=== PATIENT | female | born 1955 | race Caucasian/White ===

== ENCOUNTER 2016-09-06 09:33 | Outpatient (RCR) | payer BC, OTHER ==
--- OUTSIDE RECORDS SUMMARY | 2016-06-20 09:48 | XMS REPORT | CCD ---
Author Author LISETH LUCSA Organization Unknown Address [address] [facility] [address] [place], [place] [id number] Care Team Providers Care Supervisor Filtration Name Role Phone Bunny GRANDE DO Attphys Vital Signs Vital Sign Value Unit Date/Time Recent/Initial? Weight Measured 70 lbs 03/03/2014 10:07 Initial VS Height 16 in 03/03/2014 10:07 Initial VS BMI (Body Mass Index) 92.25 kg/m^2 03/03/2014 10:07 Initial VS BSA (Body Surface Area) 0.6 m^2 03/03/2014 10:07 Initial VS Allergies Allergy Code Allergy Type Reaction Status BACTRI 371938 Drug allergy Active Procedures Procedure Code Procedure Type Date INSERTION OF IMPLANTABLE VASCULAR 8607 ICD-9 CM, Volume 3 03/04/2014 FLUOROSCOPY < [id number] 03/04/2014 CX CHEST [id number] 03/04/2014 History of Immunizations Immunization Code Date Td (adult), adsorbed 09/02/1990 Problems Unknown or Not Available. Results Unknown or Not Available. Medications Medication Code Dose Units Frequency Route Modification Start Date/Time Stop Date/Time Calcium 500 + D 500MG-125IU Oral Tablet 2173159 1 EACH DAILY ORAL Vitamin D 1000IU Oral Tablet 394266 2594 INTERNATIONAL UNITS DAILY ORAL Atenolol 50MG Oral Tablet 19730101 50 MILLIGRAMS DAILY ORAL Amlodipine 5MG Oral Tablet 362713 5 MILLIGRAMS DAILY ORAL Medications Administered Unknown or Not Available. Encounters Encounter Diagnosis Diagnosis Code Start Date MALIGN NEOPL BREAST NOS 1749 03/04/2014 Social History Smoking Status Code Start Date End Date Never smoker [id number] Patient Decision Aids Unknown or Not Available. Discharge Instructions You were admitted to [facility] on 03/04/2014 with a principal diagnosis of MALIGN NEOPL BREAST NOS. You had the following procedures done: INSERT TUNNELED CV CATH You were discharged from [facility] on 03/04/2014. Should you have any questions prior to discharge, please contact a member of your healthcare team. If you have left the hospital and have any questions, please contact your primary care physician. Chief Complaint and Reason For Visit Chief Complaint Date of Onset GEN PORT A CATH Function Status Unknown or Not Available. Plan of Care Unknown or Not Available. Referral/Transition of Care Unknown or Not Available.
[2016-08-16 15:46] LABS: BASOPHILS % (AUTO) 1 % (0-10); EOSINOPHILS # (AUTO) 0.1 10^3/uL (0.0-0.3); EOSINOPHILS % (AUTO) 2 % (0-10); LYMPHOCYTES # (AUTO) 1.5 X 10^3 (1.0-4.0); LYMPHOCYTES % (AUTO) 21 % (12-44); MEAN CORPUSCULAR HEMOGLOBIN 31 PG (25-34); MEAN CORPUSCULAR HGB CONC 33 G/DL (32-36); MEAN CORPUSCULAR VOLUME 96 FL (80-99); MEAN PLATELET VOLUME 9.5 FL (7.4-10.4); MONOCYTES # (AUTO) 0.7 X 10^3 (0.0-1.0); MONOCYTES % (AUTO) 10 % (0-12); NEUTROPHILS # (AUTO) 4.6 X 10^3 (1.8-7.8); NEUTROPHILS % (AUTO) 67 % (42-75); PLATELET COUNT 246 10^3/uL (130-400); RED CELL DISTRIBUTION WIDTH 13.5 % (10.0-14.5)
[2016-08-16 16:21] LABS: ALANINE AMINOTRANSFERASE 23 U/L (0-55); ALBUMIN 3.7 G/DL (3.2-4.5); ANION GAP 8 MMOL/L (5-14); ASPARTATE AMINO TRANSFERASE 35 U/L (5-34); BILIRUBIN,TOTAL 0.5 MG/DL (0.1-1.0); BLOOD UREA NITROGEN 11 MG/DL (7-18); BUN/CREATININE RATIO 12; CALCIUM 9.5 MG/DL (8.5-10.1); CARBON DIOXIDE 26 MMOL/L (21-32); CHLORIDE 106 MMOL/L (98-107); CREATININE SERUM 0.89 MG/DL (0.60-1.30); GFR ESTIMATED > 60; GLUCOSE 79 MG/DL (70-105); POTASSIUM 4.5 MMOL/L (3.6-5.0); SODIUM 140 MMOL/L (135-145); TOTAL PROTEIN 8.1 G/DL (6.4-8.2)
[~2016-09-06] VITALS: Ht 176.5 cm; Wt 71.7 kg
[~2016-09-06 09:33] MED LIST: ADO TRASTUZUMAB EMTANSINE IV SCH; ALTEPLASE 2 MG (CATHFLO) CANCER CENTER IV ONE; FAMOTIDINE 20MG/2ML IV (CANCER CTR) IV SCH; FULVESTRANT 250 MG/5 ML SYR (CANCER CENTER) IM SCH; NS IV 500 ML (CANCER CENTER) IV SCH; NS IV SCH; ONDANSETRON 16 MG, DEXAMETHASONE 10 MG/NS 50 ML IVPB IV SCH; ONDANSETRON MDV (CANCER CENTER 16 MG, DEXAMETHASONE PF INJ (CANCER C 8 MG in NS (IVPB) ... IV SCH; [UNRECOGNIZED DRUG - OTHER] IV SCH; diphenhydrAMINE 25 MG TAB (BENADRYL) CANCER CENTER PO SCH
== END 2016-09-19 | disposition home or self-care (01) ==
LOC: PAR 09:33
PROVIDERS: ATTEND Internal Medicine Hematology & Oncology
DX: Z51.11 Encounter for antineoplastic chemotherapy (principal); C50.312 Malignant neoplasm of lower-inner quadrant of left female breast; C79.51 Secondary malignant neoplasm of bone; Z17.0 Estrogen receptor positive status [ER+]
CPT/HCPCS: 36415; 36593; 80053; 85025; 86300; 96375; 96402; 96413; 99213; 99214

== ENCOUNTER 2016-12-13 08:45 | Outpatient (RCR) | payer BC ==
[~2016-12-13 08:45] MED LIST changes: -ADO TRASTUZUMAB EMTANSINE IV SCH; -ALTEPLASE 2 MG (CATHFLO) CANCER CENTER IV ONE; +DENOSUMAB 120 MG/1.7 ML (XGEVA) SQ SCH; -FAMOTIDINE 20MG/2ML IV (CANCER CTR) IV SCH; -FULVESTRANT 250 MG/5 ML SYR (CANCER CENTER) IM SCH; -NS IV 500 ML (CANCER CENTER) IV SCH; -NS IV SCH; -ONDANSETRON 16 MG, DEXAMETHASONE 10 MG/NS 50 ML IVPB IV SCH; -ONDANSETRON MDV (CANCER CENTER 16 MG, DEXAMETHASONE PF INJ (CANCER C 8 MG in NS (IVPB) ... IV SCH; -[UNRECOGNIZED DRUG - OTHER] IV SCH; -diphenhydrAMINE 25 MG TAB (BENADRYL) CANCER CENTER PO SCH
== END 2016-12-19 | disposition home or self-care (01) ==
LOC: PAR 08:45
PROVIDERS: ATTEND Internal Medicine Hematology & Oncology
DX: C50.312 Malignant neoplasm of lower-inner quadrant of left female breast (principal); C79.51 Secondary malignant neoplasm of bone; Z17.0 Estrogen receptor positive status [ER+]; Z45.2 Encounter for adjustment and management of vascular access device
CPT/HCPCS: 36415; 96372; 96523; 99213

== ENCOUNTER 2017-01-17 10:35 | Outpatient (RCR) | payer BC | END 2017-02-14 11:15 | disposition home or self-care (01) | LOC: PAR 10:35 | PROVIDERS: ATTEND Internal Medicine Hematology & Oncology | DX: C50.312 Malignant neoplasm of lower-inner quadrant of left female breast (principal); C79.51 Secondary malignant neoplasm of bone; Z17.0 Estrogen receptor positive status [ER+]; Z78.0 Asymptomatic menopausal state; D70.2 Other drug-induced agranulocytosis; Z79.899 Other long term (current) drug therapy | CPT/HCPCS: 36415; 96372; 99213 ==

== ENCOUNTER 2017-02-27 09:24 | Outpatient (RCR) | payer BC ==
[2017-02-27] MEDS ORDERED: DOCETAXEL IV SCH (10:00)
[2017-02-27] MEDS ORDERED: PALONOSETRON 0.25 MG, DEXAMETHASONE 10 MG/NS 50 ML IVPB IV PRN ×3 (10:00)
[2017-02-27] MEDS ORDERED: FAMOTIDINE 20MG/2ML IV (CANCER CTR) IV SCH (10:00)
[2017-02-27] MEDS ORDERED: NORMAL SALINE IV SCH (10:00)
[2017-02-27] MEDS ORDERED: NS IV 1000 ML (CANCER CTR) 1,000 ML IV SCH (10:00)
[2017-02-27] MEDS ORDERED: diphenhydrAMINE 25 MG TAB (BENADRYL) CANCER CENTER PO SCH (10:00)
== END 2017-03-02 | disposition home or self-care (01) ==
LOC: ONC 09:24
PROVIDERS: ATTEND Internal Medicine Hematology & Oncology
DX: Z17.0 Estrogen receptor positive status [ER+]; Z79.899 Other long term (current) drug therapy; C79.51 Secondary malignant neoplasm of bone; Z51.11 Encounter for antineoplastic chemotherapy; Z51.0 Encounter for antineoplastic radiation therapy; Z78.0 Asymptomatic menopausal state; C50.312 Malignant neoplasm of lower-inner quadrant of left female breast
CPT/HCPCS: 77290; 77334; 96375; 96413; 99213; 99214

== ENCOUNTER 2017-03-18 11:48 | Emergency (ER) | payer BC ==
[~2017-03-18] VITALS: Ht 175.3 cm; Wt 68.0 kg
[2017-03-18 13:25] LABS: KETONES,URINE NEGATIVE (NEGATIVE); LEUKOCYTE ESTERASE ,URINE 1+ (NEGATIVE); NITRITE,URINE POSITIVE (NEGATIVE); PH,URINE 7 (5-9); PROTEIN,URINE NEGATIVE (NEGATIVE); UROBILINOGEN,URINE 8 MG/DL (NORMAL)
[2017-03-18 13:47] LABS: BILIRUBIN,URINE 3+ (NEGATIVE)
--- NOTE | 2017-03-18 14:48 | ED GU-Female ---
General Chief Complaint: -Female Stated Complaint: CAN'T PEE Nursing Triage Note: C/O inability to urinate. States her "stream" has been decreasing for the last momth. On Azo. Hx of metastatic breast cancer. Nursing Sepsis Screen: No Definite Risk Source: patient Exam Limitations: no limitations Allergies and Home Medications Allergies Coded Allergies: No Known Drug Allergies (Verified , 04/06/08) Past Pimrysd-Lgmotx-Ijfniy Hx Patient Social History Alcohol Use: Denies Use Recreational Drug Use: No Smoking Status: Never a Smoker Recent Foreign Travel: No Contact w/Someone Who Travel: No Recent Infectious Disease Expo: No Reproductive System Hx Reproductive Disorders: No Physical Exam Vital Signs Vital Sign - Last 12Hours 03/18/17 12:40 Temp 98.1 B/P (MAP) 115/65 Pulse Ox 98 Capillary Refill : Less Than 3 Seconds Progress/Results/Core Measures Results/Orders Lab Results Laboratory Tests Test 03/18/17 13:00 Range/Units Urine Color OTHER H Urine Clarity CLEAR Urine pH 7 5-9 Urine Specific [place] 1.010 L 1.016-1.022 Urine Protein NEGATIVE NEGATIVE Urine Glucose (UA) NEGATIVE NEGATIVE Urine Ketones NEGATIVE NEGATIVE Urine Nitrite POSITIVE H NEGATIVE Urine Bilirubin 3+ H NEGATIVE Urine Urobilinogen 8 H NORMAL MG/DL Urine Leukocyte Esterase 1+ H NEGATIVE Urine RBC (Auto) NEGATIVE NEGATIVE Urine RBC RARE /HPF Urine WBC NONE /HPF Urine Crystals NONE /LPF Urine Bacteria NEGATIVE /HPF Urine Casts NONE /LPF Urine Mucus NEGATIVE /LPF Urine Culture Indicated YES Vital Signs/I&O Vital Sign - Last 12Hours 03/18/17 12:40 Temp 98.1 B/P (MAP) 115/65 Pulse Ox 98 Blood Pressure Mean: 82 Departure Impression Impression: Primary Impression: Urinary retention Disposition: 01 HOME, SELF-CARE Condition: Improved Departure-Patient Inst. Decision time for Depature: 14:30 Referrals: MANUEL CARLSON DO (PCP/Family) Primary Care Physician Patient Instructions: How to Care for Your Correia Catheter, Female, Urinary Retention Add. Discharge Instructions: Leave the indwelling catheter in place until otherwise instructed by your cancer team. Return to the ER if you have further problems. Have your cancer treatment team check your urine culture results in 48 hours. All discharge instructions reviewed with patient and/or family. Voiced understanding. THIERNO LEVINE MD Mar 18, 2017 14:48
[2017-03-18 15:30] VITALS: BP 118/68
== END 2017-03-18 15:30 | disposition home or self-care (01) ==
LOC: EDUNIT# 11:48 → ER 11:50
DX: R33.9 Retention of urine, unspecified (principal)
CPT/HCPCS: 51702; 81000; 87088

== ENCOUNTER 2017-03-25 16:49 | Inpatient (IN) | payer BC ==
[~2017-03-25] VITALS: Ht 175.3 cm; Wt 62.1 kg
[2017-03-25] MEDS ORDERED: NS IV 1000 ML 2,000 ML IV PRN (17:30)
[2017-03-25 17:45] LABS: BASOPHILS % (AUTO) 1 % (0-10); EOSINOPHILS # (AUTO) 0.2 10^3/uL (0.0-0.3); EOSINOPHILS % (AUTO) 5 % (0-10); LYMPHOCYTES # (AUTO) 0.2 X 10^3 (1.0-4.0); LYMPHOCYTES % (AUTO) 4 % (12-44); MEAN CORPUSCULAR HEMOGLOBIN 35 PG (25-34); MEAN CORPUSCULAR HGB CONC 34 G/DL (32-36); MEAN CORPUSCULAR VOLUME 104 FL (80-99); MEAN PLATELET VOLUME 9.1 FL (7.4-10.4); MONOCYTES # (AUTO) 0.4 X 10^3 (0.0-1.0); MONOCYTES % (AUTO) 10 % (0-12); NEUTROPHILS # (AUTO) 3.2 X 10^3 (1.8-7.8); NEUTROPHILS % (AUTO) 81 % (42-75); PLATELET COUNT 164 10^3/uL (130-400); RED BLOOD COUNT 3.45 10^6/uL (4.35-5.85); RED CELL DISTRIBUTION WIDTH 12.9 % (10.0-14.5)
--- NOTE | 2017-03-25 17:48 | Diagnostic Imaging Report ---
INDICATION: Abdominal pain, history of breast cancer. EXAMINATION: Chest 03/25/2017. COMPARISONS: No recent. FINDINGS: Right-sided chest port is noted with tip in the SVC. Lungs demonstrate chronic change with areas of scarring and mild hyperinflation also noted. Increased density right cardiophrenic angle, likely focal fat pad. A definite infiltrate or effusion is not seen and no nodules appreciated. There are clips in left axilla, heart and pulmonary vasculature appear unremarkable. IMPRESSION: 1. Chronic change as described with findings of likely mild COPD. 2. Densities right infrahilar region likely due to focal fat pad although early infiltrate could have have a similar appearance. Correlate with symptoms. Dictated by: Dictated on workstation # [id number]
[2017-03-25 17:56] LABS: PROTHROMBIN TIME PATIENT 13.4 SEC (12.2-14.7)
--- NOTE | 2017-03-25 17:59 | ED General ---
General Chief Complaint: Abdominal/GI Problems Stated Complaint: VOMITING/UNABLE TO EAT Nursing Triage Note: Pt c/o abd pain and diarrhea and decreased urination for approx 1 week. Pt is currently receiving radiation for breast cancer - last treatment was 03/21. Pt also c/o generalized weakness. Nursing Sepsis Screen: Possible Severe Sepsis Risk Source of Information: Patient Exam Limitations: No Limitations (BEV ESCALONA MD) History of Present Illness Time Seen by Provider: 17:42 Initial Comments Here with report of one week of decreased urination and abdominal pain. She states everything that she eats or drinks comes right through her. She is worried about dehydration. She presents with fever. She has breast cancer with metastasis to the abdomen and back and has had radiation treatment and chemotherapy. Last chemotherapy was a few days ago. States that she is having decreased urine output. Unsure if its blockage or if it's just poor flow. On triage she was noted to be somewhat hypotensive with a map of 64. After signing to the room, blood pressure is 100/67. Patient states that she just feels blah. Timing/Duration: 1 Week, Getting Worse Severity: Moderate Associated Systoms: No Chest Pain, No Cough, Fever/Chills, No Headaches, Malaise, No Shortness of Air, Weakness (BEV ESCALONA MD) Allergies and Home Medications Allergies Coded Allergies: No Known Drug Allergies (Verified , 04/06/08) Constitutional: see HPI, fever, weakness, weight loss EENTM: no symptoms reported Respiratory: no symptoms reported, No short of breath, No wheezing Cardiovascular: no symptoms reported, No chest pain, No palpitations Gastrointestinal: abdominal pain, diarrhea, nausea, No vomiting Genitourinary: decreased output, pain Musculoskeletal: back pain, muscle pain Skin: no symptoms reported Psychiatric/Neurological: See HPI, Weakness Hematologic/Lymphatic: No Symptoms Reported Immunological/Allergic: no symptoms reported (BEV ESCALONA MD) All Other Systems Reviewed Negative Unless Noted: Yes (BEV ESCALONA MD) Past Dnnpyec-Grdlfn-Wmjkbt Hx Patient Social History Alcohol Use: Denies Use Recreational Drug Use: No Smoking Status: Never a Smoker Recent Foreign Travel: No Contact w/Someone Who Travel: No Recent Infectious Disease Expo: No (BEV ESCALONA MD) Surgeries History of Surgeries: Yes Surgeries: Breast, Orthopedic (BEV ESCALONA MD) Respiratory History of Respiratory Disorde: No (BEV ESCALONA MD) Cardiovascular History of Cardiac Disorders: No (BEV ESCALONA MD) Neurological History of Neurological Disord: Yes Neurological Disorders: Brain Tumor (BEV ESCALONA MD) Reproductive System Hx Reproductive Disorders: No (BEV ESCALONA MD) Genitourinary History of Genitourinary Disor: Yes (obstruction) (BEV ESCALONA MD) Gastrointestinal History of Gastrointestinal Di: No (BEV ESCALONA MD) Cancer History of Cancer: Yes Cancer: Brain, Breast (BEV ESCALONA MD) Reviewed Nursing Assessment Reviewed/Agree w Nursing PMH: Yes (BEV ESCALONA MD) Family Medical History Significant Family History: No Pertinent Family Hx (BEV ESCALONA MD) Physical Exam Vital Signs Vital Sign - Last 12Hours 03/25/17 17:14 Temp 100.0 Pulse 100 Resp 18 B/P (MAP) 85/53 Pulse Ox 99 O2 Delivery Room Air (THIERNO LEVINE MD) Vital Signs Capillary Refill : Less Than 3 Seconds (BEV ESCALONA MD) General Appearance: No Apparent Distress, Thin HEENT: PERRL/EOMI, Pharynx Normal, Other (mucous membranes) Neck: Non Tender, Supple Respiratory: Lungs Clear, Normal Breath Sounds Cardiovascular: No Murmur, Tachycardia Gastrointestinal: Non Tender, Soft Back: Normal Inspection, No CVA Tenderness, No Vertebral Tenderness Extremity: Normal Capillary Refill, Normal Range of Motion, Non Tender Neurologic/Psychiatric: Alert, Oriented x3 Skin: Normal Color, Warm/Dry (BEV ESCALONA MD) Focused Exam Evaluation Sepsis Stage: Ruled Out Reason for ruling out sepsis: Patient only met 1 SIRS criteria Lactate Level Laboratory Tests 03/25/17 17:30: Lactic Acid Level 0.81 (THIERNO LEVINE MD) Time of Focused Exam: 19:30 Respiratory: Lungs Clear, Normal Breath Sounds, No Respiratory Distress Cardiovascular: Regular Rate, Rhythm, No Edema, No Murmur, Normal Peripheral Pulses Capillary Refill: Less Than 3 Seconds Skin: normal color, warm/dry Lactic Acid Level Laboratory Tests Test 03/25/17 17:30 Lactic Acid Level 0.81 MMOL/L (0.50-2.00) (THIERNO LEVINE MD) Progress/Results/Core Measures Results/Orders Lab Results Laboratory Tests Test 03/25/17 17:30 03/25/17 18:32 Range/Units White Blood Count 4.0 L 4.3-11.0 10^3/uL Red Blood Count 3.45 L 4.35-5.85 10^6/uL Hemoglobin 12.0 11.5-16.0 G/DL Hematocrit 36 35-52 % Mean Corpuscular Volume 104 H 80-99 FL Mean Corpuscular Hemoglobin 35 H 25-34 PG Mean Corpuscular Hemoglobin Concent 34 32-36 G/DL Red Cell Distribution Width 12.9 10.0-14.5 % Platelet Count 164 130-400 10^3/uL Mean Platelet Volume 9.1 7.4-10.4 FL Neutrophils (%) (Auto) 81 H 42-75 % Lymphocytes (%) (Auto) 4 L 12-44 % Monocytes (%) (Auto) 10 0-12 % Eosinophils (%) (Auto) 5 0-10 % Basophils (%) (Auto) 1 0-10 % Neutrophils # (Auto) 3.2 1.8-7.8 X 10^3 Lymphocytes # (Auto) 0.2 L 1.0-4.0 X 10^3 Monocytes # (Auto) 0.4 0.0-1.0 X 10^3 Eosinophils # (Auto) 0.2 0.0-0.3 10^3/uL Basophils # (Auto) 0.0 0.0-0.1 10^3/uL Neutrophils % (Manual) 77 % Lymphocytes % (Manual) 2 % Monocytes % (Manual) 2 % Eosinophils % (Manual) 5 % Basophils % (Manual) 1 % Band Neutrophils 13 % Blood Morphology Comment NORMAL Prothrombin Time 13.4 12.2-14.7 SEC INR Comment 1.0 0.8-1.4 Activated Partial Thromboplast Time 28 24-35 SEC Sodium Level 133 L 135-145 MMOL/L Potassium Level 4.4 3.6-5.0 MMOL/L Chloride Level 103 98-107 MMOL/L Carbon Dioxide Level 25 21-32 MMOL/L Anion Gap 5 5-14 MMOL/L Blood Urea Nitrogen 11 7-18 MG/DL Creatinine 0.67 0.60-1.30 MG/DL Estimat Glomerular Filtration Rate > 60 BUN/Creatinine Ratio 16 Glucose Level 120 H 70-105 MG/DL Lactic Acid Level 0.81 0.50-2.00 MMOL/L Calcium Level 7.9 L 8.5-10.1 MG/DL Total Bilirubin 0.8 0.1-1.0 MG/DL Aspartate Amino Transf (AST/SGOT) 16 5-34 U/L Alanine Aminotransferase (ALT/SGPT) 11 0-55 U/L Alkaline Phosphatase 46 40-136 U/L Total Protein 6.5 6.4-8.2 GM/DL Albumin 3.1 L 3.2-4.5 GM/DL Urine Color BRNADON H Urine Clarity VERY CLOUDY H Urine pH 6 5-9 Urine Specific [place] 1.020 1.016-1.022 Urine Protein 3+ H NEGATIVE Urine Glucose (UA) NEGATIVE NEGATIVE Urine Ketones 3+ H NEGATIVE Urine Nitrite POSITIVE H NEGATIVE Urine Bilirubin 2+ H NEGATIVE Urine Urobilinogen 4 H NORMAL MG/DL Urine Leukocyte Esterase 3+ H NEGATIVE Urine RBC (Auto) 5+ H NEGATIVE Urine RBC 10-25 H /HPF Urine WBC 50-100 H /HPF Urine Crystals NONE /LPF Urine Bacteria MODERATE H /HPF Urine Casts NONE /LPF Urine Mucus NEGATIVE /LPF Urine Culture Indicated YES (THIERNO LEVINE MD) My Orders Orders - THIERNO LEVINE MD Cefepime Injection (Maxipime Injection) (03/25/17 19:30) Correia Cath Insertion (03/25/17 19:24) Normal Saline 1000ml Iv (03/25/17 19:49) (THIERNO LEVINE MD) Medications Given in ED Current Medications Medications Dose Ordered Sig/Jessica Route Start Time Stop Time Status Last Admin Dose Admin Cefepime HCl 2000 mg/Sodium Chloride 50 ml @ 100 mls/hr ONCE ONCE IV 03/25/17 19:30 03/25/17 19:59 03/25/17 19:24 100 MLS/HR Sodium Chloride 2,000 ml @ 1,000 mls/hr PRN PRN IV 03/25/17 17:30 03/25/17 19:24 1,000 MLS/HR (THIERNO LEVINE MD) Vital Signs/I&O Vital Sign - Last 12Hours 03/25/17 17:14 Temp 100.0 Pulse 100 Resp 18 B/P (MAP) 85/53 Pulse Ox 99 O2 Delivery Room Air Intake and Output 03/26/17 00:00 Intake Total 1000 ml Balance 1000 ml (THIERNO LEVINE MD) Blood Pressure Mean: 64 Progress Note : Progress Note Seen and evaluated. IV, labs, blood cultures, lactic acid, chest x-ray and UA ordered. We will initiate normal saline bolus at 30 mL/kg given the isolated hypotension due to concerns of significant dehydration at a minimum. We will change Correia catheter to ensure good flow. Monitor patient. (BEV ESCALONA MD) Progress Note : Time: 19:47 Progress Note Patient did not technically meet sepsis criteria she only had one of the SIRS criteria. Hypertension resolved with less than 1 L of IV fluid. She was started on cefepime in the emergency room. Case was discussed with Dr. Hendricks who felt cefepime is an appropriate antibiotic for the circumstances. She recommended adding Levaquin until a follow-up chest x-ray can confirm or rule out pneumonia. A repeat chest x-ray was ordered for the morning. Case was reviewed with Dr. Soler as well. He agrees with plan of care. Dr. Hendricks does not plan on rounding on the patient as she is not feeling well herself, but Dr. Dangelo can be contacted and oncologist needs to see the patient in the hospital. A second liter of IV fluids was initiated with cefepime. (THIERNO LEVINE MD) Diagnostic Imaging Diagonstic Imaging: Xray Plain Films/CT/US/NM/MRI: chest Comments [facility]. [place], [place] NAME: ESTEFANY GARCIA [facility] REC#: [id number] PT STATUS: REG ER : 1955 PHYSICIAN: BEV ESCALONA MD ADMIT DATE: 03/25/17/ER Draft Date of Exam:03/25/17 CHEST 1 VIEW, AP/PA ONLY INDICATION: Abdominal pain, history of breast cancer. EXAMINATION: Chest 03/25/2017. COMPARISONS: No recent. FINDINGS: Right-sided chest port is noted with tip in the SVC. Lungs demonstrate chronic change with areas of scarring and mild hyperinflation also noted. Increased density right cardiophrenic angle, likely focal fat pad. A definite infiltrate or effusion is not seen and no nodules appreciated. There are clips in left axilla, heart and pulmonary vasculature appear unremarkable. IMPRESSION: 1. Chronic change as described with findings of likely mild COPD. 2. Densities right infrahilar region likely due to focal fat pad although early infiltrate could have have a similar appearance. Correlate with symptoms. Dictated on workstation # [id number] Dict: 03/25/17 1740 Trans: 03/25/17 1748 KB [id number] Interpreted by: BO VILLALPANDO MD Electronically signed by: (BEV ESCALONA MD) Departure Impression Impression: Primary Impression: Hypovolemia Additional Impressions: Urinary tract infection Qualified Codes: N39.0 - Urinary tract infection, site not specified Metastatic breast cancer Urinary obstruction Disposition: ADMITTED INPATIENT Condition: Improved Admissions Decision to Admit Reason: Admit from ER (General) Decision to Admit/Date: Mar 25, 2017 Time/Decision to Admit Time: 18:00 (THIERNO LEVINE MD) Departure-Patient Inst. Referrals: MANUEL CARLSON DO (PCP/Family) Primary Care Physician BEV ESCALONA MD Mar 25, 2017 17:59 THIERNO LEVINE MD Mar 25, 2017 19:40
[2017-03-25 18:03] LABS: ALANINE AMINOTRANSFERASE 11 U/L (0-55); ALBUMIN 3.1 GM/DL (3.2-4.5); ANION GAP 5 MMOL/L (5-14); ASPARTATE AMINO TRANSFERASE 16 U/L (5-34); BILIRUBIN,TOTAL 0.8 MG/DL (0.1-1.0); BLOOD UREA NITROGEN 11 MG/DL (7-18); BUN/CREATININE RATIO 16; CALCIUM 7.9 MG/DL (8.5-10.1); CARBON DIOXIDE 25 MMOL/L (21-32); CHLORIDE 103 MMOL/L (98-107); CREATININE SERUM 0.67 MG/DL (0.60-1.30); GFR ESTIMATED > 60; GLUCOSE 120 MG/DL (70-105); POTASSIUM 4.4 MMOL/L (3.6-5.0); SODIUM 133 MMOL/L (135-145); TOTAL PROTEIN 6.5 GM/DL (6.4-8.2)
[2017-03-25 18:05] LABS: BAND NEUTROPHILS 13 %; EOSINOPHILS % (MANUAL) 5 %; LYMPHOCYTES % (MANUAL) 2 %; NEUTROPHILS % (MANUAL) 77 %
[2017-03-25 18:06] LABS: BASOPHILS % (MANUAL) 1 %
[2017-03-25 18:44] LABS: KETONES,URINE 3+ (NEGATIVE); LEUKOCYTE ESTERASE ,URINE 3+ (NEGATIVE); NITRITE,URINE POSITIVE (NEGATIVE); PH,URINE 6 (5-9); PROTEIN,URINE 3+ (NEGATIVE); UROBILINOGEN,URINE 4 MG/DL (NORMAL)
[2017-03-25 18:57] LABS: WBC,URINE 50-100 /HPF
[2017-03-25] MEDS ORDERED: CEFEPIME INJECTION 2,000 MG in NS (IVPB) 50 ML IV ONE (19:30)
[2017-03-25] MEDS ORDERED: NS IV 1000 ML 1,000 ML IV ONE (19:49)
[2017-03-25 20:15] VITALS: BP 111/64
[2017-03-25 22:00] VITALS: BP 87/51
[2017-03-25] MEDS ORDERED: LEVOFLOXACIN 750 MG/150 ML IV 150 ML IV ONE (22:27)
[2017-03-25] MEDS: NS IV 1000 ML 1,000 ML IV SCH (22:43)
[2017-03-25] MEDS ORDERED: HYDROcodone/APAP 5 MG/325 MG (LORTAB) TAB PO PRN (22:45)
[2017-03-25] MEDS ORDERED: ONDANSETRON 4 MG/2 ML (SDV) Z0FRAN IV PRN (22:45)
[2017-03-25] MEDS ORDERED: fentaNYL INJECTION 100 MCG/2 ML AMP IV PRN (22:45)
[2017-03-25 22:59] VITALS: BP 96/64
[2017-03-26] VITALS: BP 100/62
[2017-03-26 04:37] VITALS: BP 94/60
[2017-03-26] MEDS: NS IV 1000 ML 1,000 ML IV SCH ×2 (05:28→12:26)
[2017-03-26 06:24] LABS: BASOPHILS % (AUTO) 0 % (0-10); EOSINOPHILS # (AUTO) 0.1 10^3/uL (0.0-0.3); EOSINOPHILS % (AUTO) 4 % (0-10); LYMPHOCYTES # (AUTO) 0.1 X 10^3 (1.0-4.0); LYMPHOCYTES % (AUTO) 3 % (12-44); MEAN CORPUSCULAR HEMOGLOBIN 34 PG (25-34); MEAN CORPUSCULAR HGB CONC 32 G/DL (32-36); MEAN CORPUSCULAR VOLUME 105 FL (80-99); MEAN PLATELET VOLUME 9.1 FL (7.4-10.4); MONOCYTES # (AUTO) 0.4 X 10^3 (0.0-1.0); MONOCYTES % (AUTO) 14 % (0-12); NEUTROPHILS # (AUTO) 2.5 X 10^3 (1.8-7.8); NEUTROPHILS % (AUTO) 79 % (42-75); PLATELET COUNT 132 10^3/uL (130-400); RED BLOOD COUNT 2.55 10^6/uL (4.35-5.85); RED CELL DISTRIBUTION WIDTH 12.8 % (10.0-14.5); WHITE BLOOD COUNT 3.2 10^3/uL (4.3-11.0)
[2017-03-26 06:25] LABS: ALANINE AMINOTRANSFERASE 9 U/L (0-55); ALBUMIN 2.4 GM/DL (3.2-4.5); ANION GAP 7 MMOL/L (5-14); ASPARTATE AMINO TRANSFERASE 10 U/L (5-34); BILIRUBIN,TOTAL 0.6 MG/DL (0.1-1.0); BLOOD UREA NITROGEN 7 MG/DL (7-18); BUN/CREATININE RATIO 13; CALCIUM 6.6 MG/DL (8.5-10.1); CARBON DIOXIDE 19 MMOL/L (21-32); CHLORIDE 109 MMOL/L (98-107); CREATININE SERUM 0.55 MG/DL (0.60-1.30); GFR ESTIMATED > 60; GLUCOSE 84 MG/DL (70-105); POTASSIUM 3.8 MMOL/L (3.6-5.0); SODIUM 135 MMOL/L (135-145); TOTAL PROTEIN 4.8 GM/DL (6.4-8.2)
[2017-03-26] MEDS ORDERED: CATHETER FLUSH 10 ML SYR IV PRN (07:00)
[2017-03-26] MEDS ORDERED: INFLUENZA TRIvalent 2017-2018 0.5 ML/45 MCG SYR IM ONE (07:00)
[2017-03-26 07:31] LABS: BILIRUBIN,URINE 2+ (NEGATIVE)
[2017-03-26] MEDS ORDERED: ONDA8TAB12 PO (08:05)
[2017-03-26] MEDS ORDERED: AMLO10TA2 PO (08:05)
[2017-03-26] MEDS ORDERED: GUAN2TAB PO (08:05)
[2017-03-26] MEDS ORDERED: LETR2.5T5 PO (08:05)
[2017-03-26] MEDS ORDERED: HYDR-3820 PO (08:05)
[2017-03-26 08:08] VITALS: BP 96/60
[2017-03-26] MEDS ORDERED: DEXA4TAB PO (08:08)
[2017-03-26] MEDS ORDERED: OMEP20TA33 PO (08:09)
[2017-03-26] MEDS: PHENAZOPYRIDINE 100 MG (PYRIDIUM) TABLET PO SCH ×2 (08:46→21:48)
--- NOTE | 2017-03-26 08:53 | Diagnostic Imaging Report ---
CLINICAL INDICATION: Patient unable to drink or eat without it coming right back out. Patient has a history of metastatic cancer. Patient has no chest complaints. EXAM: Chest x-ray, PA and lateral views. COMPARISON: Chest x-ray dated 03/25/2017. FINDINGS: Again seen is a Port-A-Cath overlying the right chest with the tip in the upper to mid superior vena cava region. There are surgical clips overlying the left axillary region again noted. Left mastectomy is seen. LUNGS/PLEURA: The lungs are clear. There is no pneumothorax. There is no pleural effusion. MEDIASTINUM: Unremarkable. PULMONARY VASCULATURE: Unremarkable. HEART: Unremarkable. BONES/EXTRATHORACIC SOFT TISSUE: There is a mild compression deformity of a lower thoracic vertebra. There are small degenerative spurs involving the visualized thoracolumbar Spine. IMPRESSION: 1. There is a mild compression deformity of a lower thoracic vertebra of unknown age. This cannot be compared on the prior chest x-ray due to it having no lateral view. If there is concern for acute back pain, then an MRI of the thoracic spine with and without contrast would better evaluate. 2. Otherwise, there is no interval radiographic evidence of an acute cardiopulmonary process. Dictated by: Dictated on workstation # [id number]
--- NOTE | 2017-03-26 11:38 | History & Physical-Hospitalist ---
HPI History of Present Illness: HPI/Chief Complaint Pt is a 61yoCF with a PMH of metastatic breast cancer, HTN, and recent urinary retention necessitating ashby catheter who presented to the ER yesterday with CC of feeling poorly. She states since she started chemo and radiation she has had persistent diarrhea and reflux. She has loose stools multiple times a day and recently her reflux has gotten so bad that she is unable to keep anything down so she presented to the ER. Of note she developed urinary retention from her radiation last week and necessitated a ashby. UA was consistent with a UTI. She reports having persistent nausea and diarrhea unresponsive to Imodium and Zofran at this time. Her reflux has been resistant to Prilosec as well. She was admitted for hypovolemia and UTI. Source: patient Date Seen 03/26/17 Time Seen by Provider: 11:15 Attending Physician Jeffrey Soler MD PCP Dank Haskins DO Referring Physician Date of Admission Mar 25, 2017 at 7:46 pm Home Medications & Allergies Home Medications Reviewed patient Home Medication Reconciliation Form Allergies Allergies Coded Allergies No Known Drug Allergies (Yzjzhbbe62/4/08) Past Tcgpexo-Szppvm-Exskrc Hx Patient Social History Marrital Status: (Efe Hope- [phone]) Alcohol Use: Occasionally Uses Alcohol Beverage of Choice: Beer Recreational Drug Use: No Smoking Status: Former Smoker Former Smoker, Quit: Jun 03, 2007 Type Used: Cigarettes Physical Abuse Screen: No Sexual Abuse: No Recent Foreign Travel: No Contact w/other who traveled: No Recent Hopitalizations: No Recent Infectious Disease Expo: No Immunizations Up To Date Pediatric: No Seasonal Allergies Seasonal Allergies: No Surgeries Yes Abdominal, Appendectomy, Breast, Orthopedic (knee and carpal tunnel) Respiratory No Cardiovascular No Reproductive System Hx Reproductive Disorders: No Sexually Transmitted Disease: No Genitourinary Yes (urinary retention) Gastrointestinal Yes Gastroesophageal Reflux Musculoskeletal No Endocrine History of Endocrine Disorders: No HEENT History of HEENT Disorders: No Cancer Yes Brain, Breast Did You Recieve Any Treatments: Yes Type of Treatment: Chemotherapy, Radiation, Surgical Intervention Psychosocial History of Psychiatric Problem: No Integumentary History of Skin or Integumenta: No Blood Transfusions History of Blood Disorders: No Adverse Reaction to a Blood Tr: No Reviewed Nursing Assessment Reviewed/Agree w Nursing PMH: Yes Family Medical History Significant Family History: No Pertinent Family Hx Family Hx: Patient reports no known family medical history. Review of Systems Constitutional: No chills, No fever, weakness EENTM: No blurred vision, No double vision, No nose congestion, No throat pain Respiratory: No cough, No dyspnea on exertion, No short of breath Cardiovascular: No chest pain, No edema, No palpitations Gastrointestinal: abdominal pain, No constipation, diarrhea, heartburn, nausea Genitourinary: see HPI, decreased output Musculoskeletal: No joint pain, No muscle pain Skin: No lesions, No rash Psychiatric/Neurological: Denies Headache, Denies Numbness, Denies Tingling Physical Exam Physical Exam Vital Signs Vital Sign - Last 12Hours 03/25/17 17:14 Temp 100.0 Pulse 100 Resp 18 B/P (MAP) 85/53 Pulse Ox 99 O2 Delivery Room Air Capillary Refill : Less Than 3 Seconds General Appearance: No Apparent Distress, Thin HEENT: PERRL/EOMI, Moist Mucous Membranes Neck: Non Tender, Supple Respiratory: Lungs Clear, No Respiratory Distress Cardiovascular: Regular Rate, Rhythm, No Murmur Gastrointestinal: Normal Bowel Sounds, Soft, No Distended, No Guarding, Tenderness (epigastric) Extremity: Normal Capillary Refill, No Calf Tenderness, No Pedal Edema Neurologic/Psychiatric: Alert, Oriented x3, Normal Mood/Affect Skin: Normal Color, Warm/Dry Results Results/Procedures Lab Laboratory Tests 03/25/17 17:30 03/26/17 05:55 Radiology CHEST 1 VIEW, AP/PA ONLY INDICATION: Abdominal pain, history of breast cancer. EXAMINATION: Chest 03/25/2017. COMPARISONS: No recent. FINDINGS: Right-sided chest port is noted with tip in the SVC. Lungs demonstrate chronic change with areas of scarring and mild hyperinflation also noted. Increased density right cardiophrenic angle, likely focal fat pad. A definite infiltrate or effusion is not seen and no nodules appreciated. There are clips in left axilla, heart and pulmonary vasculature appear unremarkable. IMPRESSION: 1. Chronic change as described with findings of likely mild COPD. 2. Densities right infrahilar region likely due to focal fat pad although early infiltrate could have have a similar appearance. Correlate with symptoms. Assessment/Plan Admission Diagnosis UTI Diagnosis/Problems Diagnosis/Problems (1) Urinary tract infection Status: Acute Assessment & Plan: E coli in Urine Continue cefepime for now, Day 2 abx DC levaquin and no signs/symptoms of PNA Blood cultures pending Qualifiers: Qualified Codes: N39.0 - Urinary tract infection, site not specified (2) Acid reflux Status: Chronic Assessment & Plan: no record of scope so unsure if esophagitis vs gastritis Will switch to Protonix and add Pepcid as well Also carafate and GI cockail available Source of poor PO intake so will treat aggressively Qualifiers: Qualified Codes: K21.9 - Gastro-esophageal reflux disease without esophagitis (3) Urinary obstruction Status: Acute Assessment & Plan: Ashby x1 week Changed in ER Continue Cefepime (4) Metastatic breast cancer Status: Acute Assessment & Plan: On chemo and radiation Oncology consulted, appreciate recs (5) Macrocytic anemia Assessment & Plan: Likely due to chemo Large drop form yesterday- likely due to dilution Trend (6) Essential (primary) hypertension Status: Chronic Assessment & Plan: Takes Norvasc at home Hold for hypotension (7) Prophylactic measure Assessment & Plan: Hold Lovenox for anemia (until stabilizes- likely tomorrow) Diet as tolerated 1/2 NS 125ml/hr Clinical Quality Measures DVT/VTE Risk/Contraindication: Risk Factor Score Per Nursin RFS Level Per Nursing on Admit: 4+=Very High GABBIE BERGERON MD Mar 26, 2017 11:38 am
[2017-03-26] MEDS ORDERED: NS IV 1000 ML 2,000 ML ONE (11:44)
[2017-03-26] MEDS ORDERED: HEParin 1000 UNIT/ML (10ML VIAL) FOR BOLUS ONE (11:44)
[2017-03-26] MEDS ORDERED: fentaNYL INJECTION 100 MCG/2 ML AMP ONE (11:47)
[2017-03-26] MEDS ORDERED: MIDAZOLAM 5 MG/5 ML (VERSED) VIAL ONE (11:47)
[2017-03-26] MEDS: CEFEPIME 2 GM/NS 50 ML IVPB IV SCH ×4 (12:26→23:32)
[2017-03-26] MEDS: PANTOPRAZOLE 40 MG (PROTONIX) TAB PO SCH (12:26)
[2017-03-26 12:44] VITALS: BP 100/61
[2017-03-26] MEDS: 1/2 NS IV SOLUTION 1,000 ML IV SCH ×2 (15:30→22:06)
[2017-03-26] MEDS: SUCRALFATE 1 GM (CARAFATE) TAB PO SCH ×2 (15:32→21:48)
[2017-03-26] MEDS ORDERED: LIDOCAINE 2% VISCOUS 15 ML UDC PO SCH (16:00)
[2017-03-26 16:30] VITALS: BP 107/63
[2017-03-26] MEDS ORDERED: LIDOCAINE 2% VISCOUS 15 ML UDC PO PRN (21:00)
[2017-03-26] MEDS: FAMOTIDINE 20 MG (PEPCID) TABLET PO SCH (21:48)
[2017-03-26] MEDS ORDERED: LEVOFLOXACIN 750 MG/150 ML IV 150 ML IV SCH (22:45)
[2017-03-27 00:32] VITALS: BP 129/59
[2017-03-27] MEDS: 1/2 NS IV SOLUTION 1,000 ML IV SCH ×2 (02:37→11:20)
[2017-03-27 04:13] VITALS: BP 112/59
[2017-03-27] MEDS: PANTOPRAZOLE 40 MG (PROTONIX) TAB PO SCH (05:57)
[2017-03-27] MEDS: SUCRALFATE 1 GM (CARAFATE) TAB PO SCH (05:57)
[2017-03-27 06:24] LABS: BASOPHILS % (AUTO) 0 % (0-10); EOSINOPHILS % (AUTO) 0 % (0-10); LYMPHOCYTES # (AUTO) 0.1 X 10^3 (1.0-4.0); LYMPHOCYTES % (AUTO) 3 % (12-44); MEAN CORPUSCULAR HEMOGLOBIN 35 PG (25-34); MEAN CORPUSCULAR HGB CONC 34 G/DL (32-36); MEAN CORPUSCULAR VOLUME 103 FL (80-99); MEAN PLATELET VOLUME 8.7 FL (7.4-10.4); MONOCYTES # (AUTO) 0.3 X 10^3 (0.0-1.0); MONOCYTES % (AUTO) 8 % (0-12); NEUTROPHILS # (AUTO) 3.6 X 10^3 (1.8-7.8); NEUTROPHILS % (AUTO) 89 % (42-75); PLATELET COUNT 149 10^3/uL (130-400); RED BLOOD COUNT 2.63 10^6/uL (4.35-5.85); RED CELL DISTRIBUTION WIDTH 12.7 % (10.0-14.5)
[2017-03-27 06:34] LABS: ANION GAP 6 MMOL/L (5-14); BLOOD UREA NITROGEN 7 MG/DL (7-18); BUN/CREATININE RATIO 13; CALCIUM 6.9 MG/DL (8.5-10.1); CARBON DIOXIDE 20 MMOL/L (21-32); CHLORIDE 110 MMOL/L (98-107); CREATININE SERUM 0.55 MG/DL (0.60-1.30); GFR ESTIMATED > 60; GLUCOSE 121 MG/DL (70-105); SODIUM 136 MMOL/L (135-145)
--- NOTE | 2017-03-27 07:27 | CONSULTATION REPORT ---
DATE OF SERVICE: 03/26/2017 The patient is admitted to room 413. REFERRING PHYSICIAN: Gisela Leal M.D. PRIMARY PHYSICIAN: Dank Haskins D.O. IMPRESSION: 1. A 61-year-old female with metastatic breast cancer to the bone and liver. 2. Status post palliative radiation therapy to the lower back and left inguinal area with concurrent weekly Taxotere. 3. Admitted with dehydration, diarrhea, nausea secondary to significant acid peptic symptoms. 4. Escherichia coli urinary tract infection. RECOMMENDATIONS: 1. Agree with IV hydration and IV antibiotics for the urinary tract infection as you are doing. 2. We will obtain stools for C. difficile toxin because of the diarrhea. 3. Continue low-residue diet because of colitis due to radiation and advance as tolerated. 4. Hold further chemotherapy until her symptoms have resolved. 5. I will follow the patient with you in Dr. Hendricks's absence. 6. Continue to monitor electrolytes and renal function serially. BRIEF HISTORY: The patient is a 61-year-old female with metastatic breast cancer to the liver and bone, who was on outpatient palliative chemotherapy with weekly Taxotere and palliative radiation therapy to the low back and left inguinal area for symptomatic metastatic disease. She completed the radiation therapy last week, but was continuing to get worse with significant acid peptic symptoms, nausea and diarrhea. She also had difficulty passing urine and had a Correia catheter placed recently. She continued to get weaker and weaker. She came to the emergency room and was found to be dehydrated with evidence of urinary tract infection. Hence, she was admitted for further management. A medical oncology consultation was obtained for concurrent management. The patient sees Dr. Hendricks, for her oncology care but she is out of the office today and hence I am doing the consult for her. PAST MEDICAL HISTORY: Significant for early stage left breast cancer diagnosed in 2000, status post modified radical mastectomy with sentinel lymph node biopsy as well as a TRAM flap reconstruction at the [facility]. The patient was evaluated by medical oncology and received no adjuvant therapy. She developed metastatic disease to the left chest wall and bone diagnosed in 2013. At this time, she was evaluated by Dr. Desir in [place] and underwent chemotherapy with the TCHP regimen x7 cycles with an excellent response. Following this, she was put on maintenance treatment with Herceptin plus Perjeta plus Arimidex for close to a year. The patient developed recurrence in the left chest wall and reconstructed breast tissue with significant pain. She went to [facility] and had resection of the tumor along with a flap. Following this, she was started on treatment with Ibrance plus letrozole, but had evidence of progressive disease soon thereafter and developed liver metastasis as well as the worsening bone metastasis. At this point, she was recommended to undergo palliative radiation therapy to control the pain and along with this weekly chemotherapy with Taxotere was started. PAST MEDICAL HISTORY: She has significant history of gastroesophageal reflux even in the past and has been on treatment. PREVIOUS SURGERIES: Include an appendectomy, left mastectomy with TRAM flap reconstruction, abdominal wall hernia requiring surgical correction with mesh placement, knee surgery and carpal tunnel release. She recently had resection of recurrent tumor in the left breast including the TRAM flap. SOCIAL HISTORY: The patient is and lives near [place], [place]. She has a son who is in his early 20s. She was working until recently but has not been able to work because of the side effects from the treatment. She gives previous history of tobacco use, but quit in early 2007. Uses alcohol socially and denied any other recreational drug use. FAMILY HISTORY: Noncontributory with no major malignancies in the family that she knows of. PHYSICAL EXAMINATION: GENERAL: Today, showed an elderly female, well developed and nourished, awake and oriented and in mild discomfort because of the lower abdominal pain and diarrhea. VITAL SIGNS: Temperature was 98.6, pulse rate 73, respirations 20, blood pressure 100/61, oxygen saturation of 97% on room air. HEENT: Normocephalic, extraocular muscles intact, conjunctivae slightly pale, oral mucosa moist. NECK: Supple, with no JVD. No cervical, supraclavicular, or axillary lymphadenopathy palpable. CHEST: Examination of the chest showed left mastectomy. No chest wall lesions noted. LUNGS: With slightly diminished breath sounds bilaterally without wheezes or rales. CARDIOVASCULAR: Regular in rate and rhythm. No murmurs or gallops heard. ABDOMEN: Soft, nontender with no definite hepatosplenomegaly palpable. The patient has discomfort in the lower quadrants and deep palpation was not done. EXTREMITIES: Showed no edema. NEUROLOGICAL: Showed no focal motor deficits. LABORATORY DATA: CBC done today showed WBC 3.2, hemoglobin 8.6, MCV 105, RDW 12.8, platelet count 132,000 with neutrophil count of 2.5 and lymphocyte count of 0.1. Chemistry panel showed relatively normal electrolytes. BUN was 7 and creatinine 0.55 with GFR more than 60 mL per minute. Measured calcium was 6.6 with albumin level of 2.4 for a corrected calcium level of 7.8. Liver function studies were normal except for albumin level of 2.4. Urinalysis was very cloudy with 3+ protein, 3+ ketones, nitrite positive, leukocyte esterase positive with 50 to 100 WBCs and moderate bacteria. Culture showed more than 100,000 colonies of E. coli that is sensitive to all the antibiotics. Chest x-ray done today showed mild compression deformity of her lower thoracic vertebra of unknown age. No other radiographic evidence of an acute cardiopulmonary process. Right-sided port was present. Left mastectomy changes noted. Thank you for allowing me to participate in this patient's care. I will follow the patient with you. Job ID: [id number] DocumentID: [id number] Dictated Date: 03/26/2017 17:20:38 Ticketing Clerk Date: 03/27/2017 03:31:34 Dictated By: VIMAL TALBERT MD
[2017-03-27 08:00] VITALS: BP 124/62
[2017-03-27] MEDS: FAMOTIDINE 20 MG (PEPCID) TABLET PO SCH ×2 (09:17→20:51)
[2017-03-27] MEDS: PHENAZOPYRIDINE 100 MG (PYRIDIUM) TABLET PO SCH ×2 (09:17→20:51)
--- NOTE | 2017-03-27 11:01 | Progress Note-Hospitalist ---
Subjective HPI/CC On Admission Date Seen by Provider: Mar 27, 2017 Time Seen by Provider: 10:45 Pt is a 61yoCF with a PMH of metastatic breast cancer, HTN, and recent urinary retention necessitating ashby catheter who presented to the ER yesterday with CC of feeling poorly. She states since she started chemo and radiation she has had persistent diarrhea and reflux. She has loose stools multiple times a day and recently her reflux has gotten so bad that she is unable to keep anything down so she presented to the ER. Of note she developed urinary retention from her radiation last week and necessitated a ashby. UA was consistent with a UTI. She reports having persistent nausea and diarrhea unresponsive to Imodium and Zofran at this time. Her reflux has been resistant to Prilosec as well. She was admitted for hypovolemia and UTI. Subjective/Events-last exam She reports feeling better today. Feel Carafate helped with reflux. Ready to try more oral intake today. Still having diarrhea. Objective Exam Vital Signs Vital Sign - Last 12Hours 03/25/17 17:14 Temp 100.0 Pulse 100 Resp 18 B/P (MAP) 85/53 Pulse Ox 99 O2 Delivery Room Air Capillary Refill : Less Than 3 Seconds General Appearance: No Apparent Distress, WD/WN Respiratory: Lungs Clear, No Respiratory Distress Cardiovascular: Regular Rate, Rhythm, No Murmur Gastrointestinal: Normal Bowel Sounds, Non Tender, Soft Neurologic/Psychiatric: Alert, Oriented x3, Normal Mood/Affect Results/Procedures Lab Laboratory Tests 03/27/17 06:00 Assessment/Plan Assessment and Plan Assess & Plan/Chief Complaint UTI with dehydration Diagnosis/Problems Diagnosis/Problems (1) Urinary tract infection Status: Acute Assessment & Plan: E coli in Urine Transition to Keflex per sensitivites DC levaquin and no signs/symptoms of PNA Blood cultures NGTD Qualifiers: Qualified Codes: N39.0 - Urinary tract infection, site not specified (2) Acid reflux Status: Chronic Assessment & Plan: no record of scope so unsure if esophagitis vs gastritis Will switch to Protonix and add Pepcid as well Change carafae to prn Source of poor PO intake so will treat aggressively Qualifiers: Qualified Codes: K21.9 - Gastro-esophageal reflux disease without esophagitis (3) Diarrhea Status: Acute Assessment & Plan: c diff pending likely iatrogenic from radiation or chemo Taking home probiotic (4) Urinary obstruction Status: Acute Assessment & Plan: Ashby x1 week Changed in ER Continue Keflex Will have nursing do education on catheter care (5) Metastatic breast cancer Status: Acute Assessment & Plan: On chemo and radiation Oncology consulted, appreciate recs (6) Macrocytic anemia Assessment & Plan: Stable, trend (7) Essential (primary) hypertension Status: Chronic Assessment & Plan: Takes Norvasc at home Hold for hypotension (8) Prophylactic measure Assessment & Plan: Lovenox ppx Diet as tolerated 1/2 NS 50cc/hr GABBIE BERGERON MD Mar 27, 2017 11:01 am
--- NOTE | 2017-03-27 15:05 | Progress Note-Standard ---
Standard Progress Note Progress Notes/Assess & Plan Date Seen by Provider: Mar 27, 2017 Time Seen by Provider: 15:00 Progress/Assessment & Plan 61-year-old female patient of Dr. Hendricks with metastatic breast cancer to the liver and bone. Admitted with nausea, vomiting, diarrhea and dehydration. Patient completed combined chemoradiation to the low back and inguinal region for symptomatic disease. Found to have Escherichia coli UTI and antibiotic changed to Keflex. Stools for C. difficile equivocal and molecular testing pending. Patient is feeling better clinically and denied any nausea or vomiting. She is eating low residue diet and the diarrhea is also improving. Fecal occult blood test positive most likely related to colitis from the radiation. Continue IV fluids, increase oral intake and activity level. May consider starting Flagyl because of equivocal C. difficile testing. We will follow patient with you. VIMAL TALBERT Mar 27, 2017 15:04
[2017-03-27 15:59] VITALS: BP 109/55
[2017-03-27] MEDS: CEPHALEXIN 250 MG (KEFLEX) CAP PO SCH (20:51)
[2017-03-28] VITALS: BP 105/58
[2017-03-28] MEDS: ANTACID SUSP 30 ML UDC (MYLANTA) PO PRN ×2 (05:06→20:09)
[2017-03-28] MEDS: PANTOPRAZOLE 40 MG (PROTONIX) TAB PO SCH (06:47)
[2017-03-28 08:13] VITALS: BP 113/56
[2017-03-28] MEDS: FAMOTIDINE 20 MG (PEPCID) TABLET PO SCH ×2 (08:21→20:10)
[2017-03-28] MEDS: PHENAZOPYRIDINE 100 MG (PYRIDIUM) TABLET PO SCH ×2 (08:21→20:10)
[2017-03-28] MEDS: CEPHALEXIN 250 MG (KEFLEX) CAP PO SCH ×2 (08:21→20:10)
[2017-03-28] MEDS: metroNIDAZOLE 500 MG (FLAGYL) TAB PO SCH ×3 (09:29→20:10)
[2017-03-28] MEDS: SUCRALFATE 1 GM (CARAFATE) TAB PO PRN (09:29)
[2017-03-28] MEDS: DIPHENOXYLATE/ATROPINE 2.5MG/0.025MG (LOMOTIL) TAB PO PRN (11:02)
[2017-03-28] MEDS: 1/2 NS IV SOLUTION 1,000 ML IV SCH (13:15)
--- NOTE | 2017-03-28 13:52 | Progress Note-Hospitalist ---
Subjective HPI/CC On Admission Date Seen by Provider: Mar 28, 2017 Time Seen by Provider: 09:00 Pt is a 61yoCF with a PMH of metastatic breast cancer, HTN, and recent urinary retention necessitating ashby catheter who presented to the ER yesterday with CC of feeling poorly. She states since she started chemo and radiation she has had persistent diarrhea and reflux. She has loose stools multiple times a day and recently her reflux has gotten so bad that she is unable to keep anything down so she presented to the ER. Of note she developed urinary retention from her radiation last week and necessitated a ashby. UA was consistent with a UTI. She reports having persistent nausea and diarrhea unresponsive to Imodium and Zofran at this time. Her reflux has been resistant to Prilosec as well. She was admitted for hypovolemia and UTI. Subjective/Events-last exam Pt reports feeling very poorly this morning. She feels weak and has no energy. She was tearful during our exam. Still having profuse diarrhea. Objective Exam Vital Signs Vital Sign - Last 12Hours 03/25/17 17:14 Temp 100.0 Pulse 100 Resp 18 B/P (MAP) 85/53 Pulse Ox 99 O2 Delivery Room Air Capillary Refill : Less Than 3 Seconds General Appearance: No Apparent Distress, Other (tearful) Respiratory: Lungs Clear, No Respiratory Distress Cardiovascular: Regular Rate, Rhythm, No Murmur Gastrointestinal: Normal Bowel Sounds, Non Tender, Soft Extremity: Non Tender, No Calf Tenderness Neurologic/Psychiatric: Alert, Oriented x3 Assessment/Plan Assessment and Plan Assess & Plan/Chief Complaint C diff colitis Diagnosis/Problems Diagnosis/Problems (1) C. difficile colitis Status: Acute Assessment & Plan: C diff positive Flagyl started On probiotic Continue IVF as still net negative I/Os (2) Urinary tract infection Status: Acute Assessment & Plan: E coli in Urine Keflex Blood cultures NGTD Qualifiers: Qualified Codes: N39.0 - Urinary tract infection, site not specified (3) Acid reflux Status: Chronic Assessment & Plan: no record of scope so unsure if esophagitis vs gastritis Cont Protonix and Pepcid as well Change carafae to prn as most helpful for her Source of poor PO intake so will treat aggressively Qualifiers: Qualified Codes: K21.9 - Gastro-esophageal reflux disease without esophagitis (4) Urinary obstruction Status: Acute Assessment & Plan: Ashby x1 week Changed in ER Continue Keflex Will have nursing do education on catheter care (5) Metastatic breast cancer Status: Acute Assessment & Plan: On chemo and radiation Oncology consulted, appreciate recs (6) Macrocytic anemia Assessment & Plan: Stable, trend (7) Essential (primary) hypertension Status: Chronic Assessment & Plan: Takes Norvasc at home Hold for hypotension (8) Prophylactic measure Assessment & Plan: Lovenox ppx Diet as tolerated 1/2 NS 50cc/hr GABBIE BERGERON MD Mar 28, 2017 13:52
[2017-03-28] MEDS ORDERED: ENOXAPARIN 40 MG/0.4 ML (LOVENOX) SYR SC SCH (14:00)
[2017-03-28 16:41] VITALS: BP 110/55
--- NOTE | 2017-03-28 17:06 | Physician Progress Note ---
Progress Note Assessment/Plan Time Seen by Provider: 16:00 Events since last exam Pt is feeling better this afternoon. Able to keep the food down so far and diarrhea subsided this afternoon. I told her that her tumor marker CA 27.29 has come down from 82 to 52 after the chemoradiation treatment. She was very happy about it. Wants to go home tomorrow. Assessment/Plan 61-year-old female patient with metastatic breast cancer to the liver and bone, s/p recent chemoradiation treatment to the low back and inguinal region for symptomatic disease, completed radiation last week. Admitted with nausea, vomiting, diarrhea and dehydration. Found to have Escherichia coli UTI and antibiotic changed to Keflex. Stools was positive for C. difficile on Flagyl now. Patient is feeling better clinically and denied any nausea or vomiting. She is eating low residue diet and the diarrhea is also improving. Fecal occult blood test positive most likely related to colitis from the radiation which will heal over time. She can be discharged from medical oncology point of view. I will see her at the [facility] in 2-3 weeks for re-staging scan to assess the recent treatment efficacy. Once she completely recovered from current treatment toxicities, I will discuss with her the future treatment. Vitals Last set of Vitals Signs Vital Signs Date Time Temp Pulse Resp B/P (MAP) Pulse Ox O2 Delivery O2 Flow Rate FiO2 03/28/17 16:41 98.9 79 17 110/55 95 Room Air I&O I&O Intake and Output 03/29/17 00:00 Intake Total 1840 ml Output Total 2900 ml Balance -1060 ml Intake Oral 890 ml IV Total 950 ml Output Urine Total 2900 ml # Bowel Movements 5 Labs Microbiology 03/25/17 Blood Culture - Preliminary, Resulted No growth 03/26/17 C. difficile DNA Amplification - Final, Complete 03/25/17 Influenza Types A,B Antigen (LIZZY) - Final, Complete 03/25/17 Urine Culture - Final, Complete Escherichia Coli Clinical Quality Measures DVT/VTE Risk/Contraindication: Risk Factor Score Per Nursin RFS Level Per Nursing on Admit: 4+=Very High PALMER RICE MD Mar 28, 2017 17:06
[2017-03-29 00:01] VITALS: BP 115/61
[2017-03-29] MEDS: DIPHENOXYLATE/ATROPINE 2.5MG/0.025MG (LOMOTIL) TAB PO PRN (00:55)
[2017-03-29] MEDS: ANTACID SUSP 30 ML UDC (MYLANTA) PO PRN (02:34)
[2017-03-29] MEDS: PANTOPRAZOLE 40 MG (PROTONIX) TAB PO SCH (05:49)
[2017-03-29] MEDS: SUCRALFATE 1 GM (CARAFATE) TAB PO PRN (07:33)
[2017-03-29] MEDS: 1/2 NS IV SOLUTION 1,000 ML IV SCH (07:34)
[2017-03-29 08:00] VITALS: BP 108/57
[2017-03-29] MEDS: PHENAZOPYRIDINE 100 MG (PYRIDIUM) TABLET PO SCH (08:24)
[2017-03-29] MEDS: metroNIDAZOLE 500 MG (FLAGYL) TAB PO SCH (08:24)
[2017-03-29] MEDS: CEPHALEXIN 250 MG (KEFLEX) CAP PO SCH (08:24)
[2017-03-29] MEDS: FAMOTIDINE 20 MG (PEPCID) TABLET PO SCH (08:24)
--- NOTE | 2017-03-29 10:22 | Discharge Summary-Hospitalist ---
Diagnosis/Chief Complaint Date of Admission Mar 25, 2017 at 19:46 Date of Discharge Discharge Date: Mar 29, 2017 Admission Diagnosis UTI Discharge Diagnosis C diff colitis (1) C. difficile colitis Status: Acute Assessment & Plan: C diff positive Flagyl started, complete 10 days On probiotic (2) Urinary tract infection Status: Acute Assessment & Plan: E coli in Urine Keflex Day 5- will complete 7 days (end on 03/31) Blood cultures NGTD (3) Acid reflux Status: Chronic Assessment & Plan: no record of scope so unsure if esophagitis vs gastritis Cont Protonix and Pepcid as well Cont carafae prn as most helpful for her Source of poor PO intake so will treat aggressively (4) Urinary obstruction Status: Acute Assessment & Plan: Correia x1 week Changed in ER Continue Keflex (day 10/07) Will have nursing do education on catheter care (5) Metastatic breast cancer Status: Acute Assessment & Plan: On chemo and radiation Oncology consulted, appreciate recs (6) Macrocytic anemia Assessment & Plan: Stable, trend (7) Essential (primary) hypertension Status: Chronic Assessment & Plan: Takes Norvasc at home Hold for hypotension (8) Prophylactic measure Assessment & Plan: Lovenox ppx Diet as tolerated Discharge Summary Consultations Oncology Discharge Physical Examination Allergies: Coded Allergies: No Known Drug Allergies (Verified , 04/06/08) Vitals & I&Os Vital Signs Date Time Temp Pulse Resp B/P (MAP) Pulse Ox O2 Delivery O2 Flow Rate FiO2 03/29/17 08:00 98.7 74 18 108/57 96 Room Air Hospital Course Pt is a 61yoCF with a PMh of metastatic breast cancer receiving palliative chemo and radiation who presented to the ER with CC of "feeling bad" and was found to be dehydration due to intractable nausea and diarrhea. She was found to be C diff positive and started on Flagyl. Her nausea and poor PO intake was contributed to heartburn and was she treated with Protonix, Pepcid, and Carafate which improved her symptoms. She was discharged home in stable condition. Labs (last 24 hrs) Microbiology 03/25/17 Blood Culture - Preliminary, Resulted No growth 03/26/17 C. difficile DNA Amplification - Final, Complete 03/25/17 Influenza Types A,B Antigen (LIZZY) - Final, Complete 03/25/17 Urine Culture - Final, Complete Escherichia Coli Discharge Home Medications: Active Scripts Active Reported Prilosec Otc (Omeprazole Magnesium) 20 Mg Tablet.dr 40 Mg PO BID TAKES 2 (20MG) TABLETS Dexamethasone 4 Mg Tablet 8 Mg PO UD TAKES 2 (4MG) TABLETS DAY BEFORE, DAY OF, AND DAY AFTER TREATMENT Guanfacine HCl 2 Mg Tablet 2 Mg PO HS PRN Amlodipine Besylate 10 Mg Tablet 10 Mg PO HS PRN Ondansetron HCl 8 Mg Tablet 8 Mg PO Q8H PRN Hydrocodon-Acetaminophn 10-325 (Hydrocodone/Acetaminophen) 1 Each Tablet 1 Tab PO Q6H PRN Instructions to patient/family Please see electronic discharge instructions given to patient. Clinical Quality Measures DVT/VTE Risk/Contraindication: Risk Factor Score Per Nursin RFS Level Per Nursing on Admit: 4+=Very High Copy Copies To 1: Dank Haskins; PALMER RICE MD Problem Qualifiers (1) Urinary tract infection: Urinary tract infection type: site unspecified Hematuria presence: without hematuria Qualified Codes: N39.0 - Urinary tract infection, site not specified (2) Acid reflux: Esophagitis presence: esophagitis presence not specified Qualified Codes: K21.9 - Gastro-esophageal reflux disease without esophagitis GABBIE BERGERON MD Mar 29, 2017 10:22
[2017-03-29] MEDS ORDERED: PANT40TA3 PO (10:24)
[2017-03-29] MEDS ORDERED: SUCR1TAB PO (10:24)
[2017-03-29] MEDS ORDERED: CEPH250C PO (10:24)
[2017-03-29] MEDS ORDERED: FAMO20TA5 PO (10:24)
[2017-03-29] MEDS ORDERED: PHEN-826 PO (10:24)
[2017-03-29] MEDS ORDERED: METR500T21 PO (10:24)
[2017-03-29] MEDS ORDERED: LOPE-134 PO (15:52)
== END 2017-03-29 11:45 | disposition home or self-care (01) | DRG 372 ==
LOC: EDUNIT# 16:49 → ER 16:51 → 4TH 19:46
PROVIDERS: ADMIT Internal Medicine; ATTEND Internal Medicine
DX: A04.72 Enterocolitis due to Clostridium difficile, not specified as recurrent (principal); K52.0 Gastroenteritis and colitis due to radiation; E86.0 Dehydration; N39.0 Urinary tract infection, site not specified; B96.20 Unspecified Escherichia coli [E. coli] as the cause of diseases classified elsewhere; C79.51 Secondary malignant neoplasm of bone; C78.7 Secondary malignant neoplasm of liver and intrahepatic bile duct; R33.9 Retention of urine, unspecified; N13.9 Obstructive and reflux uropathy, unspecified; D53.9 Nutritional anemia, unspecified; I10 Essential (primary) hypertension; Z85.3 Personal history of malignant neoplasm of breast; Z90.12 Acquired absence of left breast and nipple
CPT/HCPCS: 36415; 51702; 71010; 71020; 80048; 80053; 81000; 82274; 83605; 85007; 85025; 85027; 85610; 85730; 87040; 87088; 87186; 87324; 87449; 87493; 87804; 96361; 96365

== ENCOUNTER 2017-04-14 06:51 | Inpatient (IN) | payer BC ==
[~2017-04-14] VITALS: Ht 175.3 cm; Wt 56.8 kg
[~2017-04-14 06:51] MED LIST changes: +AMLO10TA2 PO; +CEPH250C PO; +CIPR-225 PO; -DENOSUMAB 120 MG/1.7 ML (XGEVA) SQ SCH; +DEXA4TAB PO; +FAMO20TA5 PO; +GUAN2TAB PO; +HYDR-3820 PO; +LETR2.5T5 PO; +LOPE-134 PO; +METR500T PO; +METR500T21 PO; +OMEP20TA33 PO; +ONDA8TAB12 PO; +PANT40TA3 PO; +PHEN-826 PO; +SUCR1TAB PO
[2017-04-14] MEDS ORDERED: NS IV 1000 ML 1,000 ML IV SCH (07:15)
[2017-04-14 07:32] LABS: BASOPHILS % (AUTO) 0 % (0-10); EOSINOPHILS # (AUTO) 0.1 10^3/uL (0.0-0.3); EOSINOPHILS % (AUTO) 2 % (0-10); LYMPHOCYTES # (AUTO) 0.3 X 10^3 (1.0-4.0); LYMPHOCYTES % (AUTO) 8 % (12-44); MEAN CORPUSCULAR HEMOGLOBIN 34 PG (25-34); MEAN CORPUSCULAR HGB CONC 32 G/DL (32-36); MEAN CORPUSCULAR VOLUME 107 FL (80-99); MEAN PLATELET VOLUME 8.6 FL (7.4-10.4); MONOCYTES # (AUTO) 0.7 X 10^3 (0.0-1.0); MONOCYTES % (AUTO) 18 % (0-12); NEUTROPHILS # (AUTO) 2.7 X 10^3 (1.8-7.8); NEUTROPHILS % (AUTO) 71 % (42-75); PLATELET COUNT 196 10^3/uL (130-400); RED BLOOD COUNT 2.59 10^6/uL (4.35-5.85); RED CELL DISTRIBUTION WIDTH 14.8 % (10.0-14.5); WHITE BLOOD COUNT 3.8 10^3/uL (4.3-11.0)
[2017-04-14 07:52] LABS: ALANINE AMINOTRANSFERASE 10 U/L (0-55); ALBUMIN 2.6 GM/DL (3.2-4.5); ANION GAP 14 MMOL/L (5-14); ASPARTATE AMINO TRANSFERASE 17 U/L (5-34); BILIRUBIN,TOTAL 0.3 MG/DL (0.1-1.0); BLOOD UREA NITROGEN 6 MG/DL (7-18); BUN/CREATININE RATIO 9; CALCIUM 7.8 MG/DL (8.5-10.1); CARBON DIOXIDE 18 MMOL/L (21-32); CHLORIDE 102 MMOL/L (98-107); CREATININE SERUM 0.64 MG/DL (0.60-1.30); GFR ESTIMATED > 60; POTASSIUM 3.5 MMOL/L (3.6-5.0); SODIUM 134 MMOL/L (135-145); TOTAL PROTEIN 6.1 GM/DL (6.4-8.2)
[2017-04-14 07:55] LABS: GLUCOSE 54 MG/DL (70-105)
[2017-04-14] MEDS ORDERED: D5 NS 1000 ML IV SOLUTION 1,000 ML IV SCH (08:00)
--- NOTE | 2017-04-14 08:25 | ED GI ---
General Chief Complaint: Abdominal/GI Problems Stated Complaint: N/V/D/ NO URINE Nursing Triage Note: ARRIVED VIA AMB WITH COMPLAINTS OF N/V/D THAT STARTED ON SATURDAY. WAS SEEN HERE ON SATURDAY ET OFFERED ADMISSION BUT REFUSED AT THAT TIME. Sepsis Screen: No Definite Risk Source of Information: Patient Exam Limitations: No Limitations History of Present Illness Time Seen By Provider: 08:20 Initial Comments The patient is a 61-year-old white female who presents with complaints of nausea vomiting and diarrhea. She has been undergoing treatment at the cancer center. In March she developed urinary retention while receiving radiation therapy to the pelvis. A catheter was placed. She then developed a rather explosive diarrhea and lab testing showed a positive for Clostridium difficile. She underwent a week of oral therapy and improved and was having at least semi -formed stools. Her urinary status also improved although she has been self catheterizing 3 times daily. On she developed a fever and explosive diarrhea. She was seen here and a second stool sample again showed Clostridium difficile. She has been unable to eat or take fluids. She has now had little or no urine. Timing/Duration: 2-3 Days Severity/Quality: Moderate Location: Generalized Abdomen Allergies and Home Medications Allergies Coded Allergies: mannitol (Unverified Adverse Reaction, Unknown, 04/11/17) water for injection,sterile (Unverified Adverse Reaction, Unknown, 04/11/17 ) zoledronic acid (Unverified Adverse Reaction, Unknown, 04/11/17) Home Medications Bethanechol Chloride 50 Mg Tablet, (Reported) Ciprofloxacin HCl 500 Mg Tablet, 500 MG PO BID, #10 Prescribed by: MARIA C RIOJAS on 04/11/17 1618 Famotidine 20 Mg Tablet, 20 MG PO BID, #60 Prescribed by: GABBIE BERGERON on 03/29/17 1024 Fluconazole 150 Mg Tablet, (Reported) Hydrocodone/Acetaminophen 1 Each Tablet, 1 TAB PO Q6H PRN for PAIN-MODERATE, ( Reported) Metronidazole 500 Mg Tablet, 500 MG PO TID, #21 Prescribed by: MARIA C RIOJAS on 04/11/17 1618 Ondansetron HCl 8 Mg Tablet, 8 MG PO Q8H PRN for NAUSEA/VOMITING-1ST LINE, ( Reported) Pantoprazole Sodium 40 Mg Tablet.dr, 40 MG PO DAILY@0700, #30 Prescribed by: GABBIE BERGERON on 03/29/17 1024 Phenazopyridine HCl 100 Mg Tablet, 200 MG PO BID, #10 Prescribed by: GABBIE BERGERON on 03/29/17 1024 Sucralfate 1 Gm Tablet, 1 GM PO Q6HR PRN for DYSPEPSIA, #120 Prescribed by: GABBIE BERGERON on 03/29/17 1024 Review of Systems Constitutional: see HPI EENTM: No Symptoms Reported Respiratory: No Symptoms Reported Cardiovascular: No Symptoms Reported Gastrointestinal: See HPI, Abdomen Distended, Abdominal Pain, Diarrhea, Nausea , Poor Appetite Genitourinary: Other Musculoskeletal: muscle weakness Skin: no symptoms reported Psychiatric/Neurological: No Symptoms Reported Endocrine: No Symptoms Reported Hematologic/Lymphatic: No Symptoms Reported Past Yenojjd-Utbtzz-Zcvqse Hx Patient Social History Alcohol Beverage of Choice: Beer Type Used: Cigarettes Former Smoker, Quit: Jun 03, 2007 Recent Foreign Travel: No Contact w/Someone Who Travel: No Recent Infectious Disease Expo: No Recent Hopitalizations: No Immunizations Up To Date Tetanus Booster (TDap): Unknown PED Vaccines UTD: No Seasonal Allergies Seasonal Allergies: No Surgeries History of Surgeries: Yes Surgeries: Abdominal, Appendectomy, Breast, Orthopedic Respiratory History of Respiratory Disorde: No Cardiovascular History of Cardiac Disorders: No Neurological History of Neurological Disord: Yes Neurological Disorders: Brain Tumor Reproductive System Hx Reproductive Disorders: No Sexually Transmitted Disease: No Genitourinary History of Genitourinary Disor: Yes (urinary retention) Gastrointestinal History of Gastrointestinal Di: Yes Gastrointestinal Disorders: Gastroesophageal Reflux Musculoskeletal History of Musculoskeletal Dis: No Endocrine History of Endocrine Disorders: No HEENT History of HEENT Disorders: No Cancer History of Cancer: Yes (BREAST WITH METS. ) Cancer: Brain, Breast Did You Recieve Any Treatments: Yes Type of Tx Receive: Chemotherapy, Radiation, Surgical Intervention Psychosocial History of Psychiatric Problem: No Integumentary History of Skin or Integumenta: No Blood Transfusions History of Blood Disorders: No Adverse Reaction to a Blood Tr: No Family Medical History Significant Family History: No Pertinent Family Hx Family Medial History: Patient reports no known family medical history. Physical Exam Vital Signs VS - Last 72 Hours, by Label 04/14/17 07:00 Temp 99.4 Pulse 79 Resp 18 B/P (MAP) 114/82 Pulse Ox 97 Capillary Refill : Less Than 3 Seconds General Appearance: mild distress, other (quite thin) HEENT: normal ENT inspection Neck: full range of motion Respiratory: chest non-tender, lungs clear, normal breath sounds, no respiratory distress, no accessory muscle use Cardiovascular: normal peripheral pulses, regular rate, rhythm, no edema, no gallop, no JVD, no murmur Gastrointestinal: other (markedly decreased bowel sounds. Mild generalized tenderness to palpation. Horizontal incision mid abdomen) Extremities: normal range of motion, non-tender, normal inspection, no pedal edema, no calf tenderness, normal capillary refill, pelvis stable Back: normal inspection Neurologic/Psychiatric: case finisher II-XII nml as tested, no motor/sensory deficits, alert, normal mood/affect, oriented x 3 Skin: normal color, warm/dry Progress/Results/Core Measures Results/Orders Lab Results Laboratory Tests Test 04/14/17 07:27 04/14/17 08:35 04/14/17 09:21 Range/Units White Blood Count 3.8 L 4.3-11.0 10^3/uL Red Blood Count 2.59 L 4.35-5.85 10^6/uL Hemoglobin 8.7 L 11.5-16.0 G/DL Hematocrit 28 L 35-52 % Mean Corpuscular Volume 107 H 80-99 FL Mean Corpuscular Hemoglobin 34 25-34 PG Mean Corpuscular Hemoglobin Concent 32 32-36 G/DL Red Cell Distribution Width 14.8 H 10.0-14.5 % Platelet Count 196 130-400 10^3/uL Mean Platelet Volume 8.6 7.4-10.4 FL Neutrophils (%) (Auto) 71 42-75 % Lymphocytes (%) (Auto) 8 L 12-44 % Monocytes (%) (Auto) 18 H 0-12 % Eosinophils (%) (Auto) 2 0-10 % Basophils (%) (Auto) 0 0-10 % Neutrophils # (Auto) 2.7 1.8-7.8 X 10^3 Lymphocytes # (Auto) 0.3 L 1.0-4.0 X 10^3 Monocytes # (Auto) 0.7 0.0-1.0 X 10^3 Eosinophils # (Auto) 0.1 0.0-0.3 10^3/uL Basophils # (Auto) 0.0 0.0-0.1 10^3/uL Sodium Level 134 L 135-145 MMOL/L Potassium Level 3.5 L 3.6-5.0 MMOL/L Chloride Level 102 98-107 MMOL/L Carbon Dioxide Level 18 L 21-32 MMOL/L Anion Gap 14 5-14 MMOL/L Blood Urea Nitrogen 6 L 7-18 MG/DL Creatinine 0.64 0.60-1.30 MG/DL Estimat Glomerular Filtration Rate > 60 BUN/Creatinine Ratio 9 Glucose Level 54 *L 70-105 MG/DL Calcium Level 7.8 L 8.5-10.1 MG/DL Total Bilirubin 0.3 0.1-1.0 MG/DL Aspartate Amino Transf (AST/SGOT) 17 5-34 U/L Alanine Aminotransferase (ALT/SGPT) 10 0-55 U/L Alkaline Phosphatase 50 40-136 U/L Total Protein 6.1 L 6.4-8.2 GM/DL Albumin 2.6 L 3.2-4.5 GM/DL Urine Color YELLOW Urine Clarity CLEAR Urine pH 6 5-[address] 1.020 1.016-1.022 Urine Protein 1+ H NEGATIVE Urine Glucose (UA) NEGATIVE NEGATIVE Urine Ketones 4+ H NEGATIVE Urine Nitrite NEGATIVE NEGATIVE Urine Bilirubin NEGATIVE NEGATIVE Urine Urobilinogen NORMAL NORMAL MG/DL Urine Leukocyte Esterase 1+ H NEGATIVE Urine RBC (Auto) NEGATIVE NEGATIVE Urine RBC NONE /HPF Urine WBC RARE /HPF Urine Squamous Epithelial Cells RARE /HPF Urine Crystals NONE /LPF Urine Bacteria NEGATIVE /HPF Urine Casts NONE /LPF Urine Mucus NEGATIVE /LPF Urine Culture Indicated NO Glucometer 96 70-110 MG/DL My Orders Orders - HUNTER BRAND MD Cbc With Automated Diff (04/14/17 07:07) Comprehensive Metabolic Panel (04/14/17 07:07) Ua Culture If Indicated (04/14/17 07:07) Ns Iv 1000 Ml (Sodium Chloride 0.9%) (04/14/17 07:15) D5 Ns 1000 Ml Iv Solution (Dextrose 5%/0 (04/14/17 08:00) Vital Signs/I&O Vital Sign - Last 12Hours 04/14/17 07:00 Temp 99.4 Pulse 79 Resp 18 B/P (MAP) 114/82 Pulse Ox 97 Blood Pressure Mean: 93 Departure Impression Impression: Primary Impression: recurrent Clostridium difficile enteritis Disposition: ADMITTED INPATIENT Condition: Stable/Unchanged Admissions Decision to Admit Reason: Admit from ER (General) Decision to Admit/Date: Apr 14, 2017 Time/Decision to Admit Time: 09:20 Departure-Patient Inst. Referrals: MANUEL CALRSON DO (PCP/Family) Primary Care Physician HUNTER BRAND MD Apr 14, 2017 08:25
[2017-04-14 08:45] LABS: BILIRUBIN,URINE NEGATIVE (NEGATIVE); KETONES,URINE 4+ (NEGATIVE); LEUKOCYTE ESTERASE ,URINE 1+ (NEGATIVE); NITRITE,URINE NEGATIVE (NEGATIVE); PH,URINE 6 (5-9); PROTEIN,URINE 1+ (NEGATIVE); UROBILINOGEN,URINE NORMAL (NORMAL)
[2017-04-14 08:51] LABS: SQUAMOUS EPITHELIAL CELL,UR RARE /HPF; WBC,URINE RARE /HPF
[2017-04-14] MEDS ORDERED: FLUC150T2 (09:08)
[2017-04-14] MEDS ORDERED: BETH50TA PO (09:08)
[2017-04-14 10:20] VITALS: BP 120/56
[2017-04-14] MEDS ORDERED: CATHETER FLUSH 10 ML SYR IV PRN (10:45)
[2017-04-14] MEDS ORDERED: FAMO-119 PO (10:56)
[2017-04-14] MEDS ORDERED: CIPR500S3 PO (11:06)
[2017-04-14] MEDS ORDERED: SUCR1TAB PO (11:06)
[2017-04-14] MEDS ORDERED: LOPE2CAP PO (11:06)
[2017-04-14] MEDS ORDERED: FAMO20TA5 PO (11:06)
[2017-04-14] MEDS ORDERED: METR500T21 PO (11:06)
[2017-04-14] MEDS ORDERED: L.AC1CAP6 PO (11:21)
[2017-04-14] MEDS ORDERED: VANCOMYCIN ORAL SUSPENSION 60 ML BOTTLE PO SCH (11:30)
[2017-04-14] MEDS ORDERED: INFLUENZA TRIvalent 2017-2018 0.5 ML/45 MCG SYR IM ONE (12:15)
[2017-04-14] MEDS: SCOPOLAMINE 1.5 MG (TRANSDERM-SCOP) PATCH TOP SCH (14:17)
[2017-04-14] MEDS: VANCOMYCIN ORAL 250 MG/5 ML 60 ML PO SCH ×6 (14:17→23:50)
[2017-04-14] MEDS: D5 NS 1000 ML IV SOLUTION 1,000 ML IV SCH ×2 (14:20→20:50)
--- NOTE | 2017-04-14 15:29 | History & Physical-Hospitalist ---
HPI History of Present Illness: HPI/Chief Complaint Pt is a 61yoCF with PMH of metastatic breast cancer and c diff known to me from recent admission for c diff colitis who presents for recurrent diarrhea. She reports she stopped flagyl on 04/08 and then on 04/11 her symptoms returned with profuse diarrhea. She was seen in the ER and found to have a UTI. She was offered admission but attempted treatment at home. She has continued to have worsening diarrhea and has been unable to keep in PO fluids. She is being admitted for relapse of c diff. Source: patient Date Seen 04/14/17 Time Seen by Provider: 12:00 Attending Physician Gabbie Leal MD PCP Dank Haskins DO Referring Physician Date of Admission Apr 14, 2017 at 9:56 am Home Medications & Allergies Home Medications Reviewed patient Home Medication Reconciliation Form Allergies Allergies Coded Allergies mannitol (Unverified Adverse Reaction, Unknown, 04/11/17) water for injection,sterile (Unverified Adverse Reaction, Unknown, 04/11/17) zoledronic acid (Unverified Adverse Reaction, Unknown, 04/11/17) Past Zjdmcmj-Tfnglk-Rllfmt Hx Patient Social History Marrital Status: Alcohol Use: Occasionally Uses Alcohol Beverage of Choice: Beer Recreational Drug Use: No Smoking Status: Former Smoker Former Smoker, Quit: Jun 03, 2007 Type Used: Cigarettes Physical Abuse Screen: No Sexual Abuse: No Recent Foreign Travel: No Contact w/other who traveled: No Recent Hopitalizations: No Recent Infectious Disease Expo: No Immunizations Up To Date Tetanus Booster (TDap): Unknown Pediatric: No Seasonal Allergies Seasonal Allergies: No Surgeries Yes (LEFT MASTECTOMY) Abdominal, Appendectomy, Breast, Orthopedic Respiratory No Cardiovascular No Neurological Yes Brain Tumor Reproductive System Hx Reproductive Disorders: No Sexually Transmitted Disease: No Genitourinary Yes (urinary retention) Gastrointestinal Yes (c diff) Gastroesophageal Reflux Musculoskeletal No Endocrine History of Endocrine Disorders: No HEENT History of HEENT Disorders: No Cancer Yes (BREAST WITH METS. ) Brain, Breast Did You Recieve Any Treatments: Yes Type of Treatment: Chemotherapy, Radiation, Surgical Intervention Psychosocial History of Psychiatric Problem: No Integumentary History of Skin or Integumenta: No Blood Transfusions History of Blood Disorders: No Adverse Reaction to a Blood Tr: No Family Medical History Significant Family History: No Pertinent Family Hx Family Hx: Patient reports no known family medical history. Review of Systems Constitutional: No chills, fever EENTM: No blurred vision, No double vision, No nose congestion, No throat pain Respiratory: No cough, No dyspnea on exertion, No short of breath Cardiovascular: No chest pain, No edema, No palpitations Gastrointestinal: abdominal pain, No constipation, diarrhea, No loss of appetite, nausea Genitourinary: No dysuria, No frequency Musculoskeletal: No joint pain, No muscle pain Skin: No lesions, No rash Psychiatric/Neurological: Denies Headache, Denies Numbness, Denies Tingling Physical Exam Physical Exam Vital Signs Vital Sign - Last 12Hours 04/14/17 04/14/17 07:00 10:16 Temp 99.4 Pulse 79 Resp 18 B/P (MAP) 114/82 Pulse Ox 97 O2 Delivery Room Air Capillary Refill : Less Than 3 Seconds General Appearance: No Apparent Distress, WD/WN HEENT: PERRL/EOMI, Moist Mucous Membranes Neck: Non Tender, Supple Respiratory: Lungs Clear, No Respiratory Distress Cardiovascular: Regular Rate, Rhythm, No Murmur Gastrointestinal: Normal Bowel Sounds, Non Tender, Soft Extremity: Normal Capillary Refill, No Calf Tenderness Neurologic/Psychiatric: Alert, Oriented x3, Normal Mood/Affect Skin: Normal Color, Warm/Dry Results Results/Procedures Lab Laboratory Tests 04/14/17 07:27 Assessment/Plan Admission Diagnosis c diff Diagnosis/Problems Diagnosis/Problems (1) C. difficile colitis Status: Acute Assessment & Plan: Relapse Given immunocompromised will escalate to Vanc Vanc started 04/14 1 SIRS- this is not sepsis Contact precautions (2) Metastatic breast cancer Status: Chronic Assessment & Plan: Follows with Dr Hendricks Will consult (3) Essential (primary) hypertension Status: Chronic Assessment & Plan: BP well controlled Cont home meds (4) Acid reflux Status: Chronic Assessment & Plan: Continue PPI and carafate (5) Macrocytic anemia Status: Chronic Assessment & Plan: trending down over the past month Likely due to chemo (has overall pancytopenia) (6) Hypoglycemia Status: Acute Assessment & Plan: likely due to poor PO intake Continue D5NS (7) Hypokalemia Status: Acute Assessment & Plan: Likely due to diarrhea Will replace (8) Prophylactic measure Assessment & Plan: D5NS at 100 Lovenox Reg diet Clinical Quality Measures DVT/VTE Risk/Contraindication: Risk Factor Score Per Nursin RFS Level Per Nursing on Admit: 4+=Very High GABBIE LEAL MD Apr 14, 2017 3:29 pm
[2017-04-14] MEDS ORDERED: ONDANSETRON 4 MG/2 ML (SDV) Z0FRAN IVP PRN (15:30)
[2017-04-14 16:45] VITALS: BP 122/60
[2017-04-14] MEDS: fentaNYL INJECTION 100 MCG/2 ML AMP IVP PRN (17:03)
[2017-04-14] MEDS: POTASSIUM CL 10MEQ/50ML IVPB 50 ML IV SCH ×2 (17:03→17:52)
[2017-04-14] MEDS: BETHANECHOL 25 MG (URECHOLINE) TAB PO SCH (17:05)
[2017-04-14] MEDS: ENOXAPARIN 40 MG/0.4 ML (LOVENOX) SYR SC SCH (17:05)
[2017-04-14 19:53] VITALS: BP 106/55
[2017-04-15] VITALS: BP 90/51
[2017-04-15 04:00] VITALS: BP 106/60
[2017-04-15] MEDS: D5 NS 1000 ML IV SOLUTION 1,000 ML IV SCH ×2 (04:33→14:02)
[2017-04-15] MEDS: BETHANECHOL 25 MG (URECHOLINE) TAB PO SCH ×3 (05:28→18:03)
[2017-04-15] MEDS: VANCOMYCIN ORAL 250 MG/5 ML 60 ML PO SCH ×6 (05:29→18:04)
[2017-04-15] MEDS: SUCRALFATE 1 GM (CARAFATE) TAB PO PRN (05:37)
[2017-04-15 06:41] LABS: BASOPHILS % (AUTO) 1 % (0-10); EOSINOPHILS # (AUTO) 0.1 10^3/uL (0.0-0.3); EOSINOPHILS % (AUTO) 5 % (0-10); LYMPHOCYTES # (AUTO) 0.2 X 10^3 (1.0-4.0); LYMPHOCYTES % (AUTO) 9 % (12-44); MEAN CORPUSCULAR HEMOGLOBIN 34 PG (25-34); MEAN CORPUSCULAR HGB CONC 31 G/DL (32-36); MEAN CORPUSCULAR VOLUME 107 FL (80-99); MEAN PLATELET VOLUME 8.4 FL (7.4-10.4); MONOCYTES # (AUTO) 0.5 X 10^3 (0.0-1.0); MONOCYTES % (AUTO) 19 % (0-12); NEUTROPHILS # (AUTO) 1.6 X 10^3 (1.8-7.8); NEUTROPHILS % (AUTO) 66 % (42-75); PLATELET COUNT 173 10^3/uL (130-400); RED CELL DISTRIBUTION WIDTH 14.9 % (10.0-14.5); WHITE BLOOD COUNT 2.4 10^3/uL (4.3-11.0)
[2017-04-15 07:00] LABS: ANION GAP 4 MMOL/L (5-14); BLOOD UREA NITROGEN 2 MG/DL (7-18); BUN/CREATININE RATIO 4; CARBON DIOXIDE 22 MMOL/L (21-32); CHLORIDE 111 MMOL/L (98-107); CREATININE SERUM 0.57 MG/DL (0.60-1.30); GFR ESTIMATED > 60; GLUCOSE 153 MG/DL (70-105); MAGNESIUM 1.6 MG/DL (1.8-2.4); POTASSIUM 3.2 MMOL/L (3.6-5.0); SODIUM 137 MMOL/L (135-145)
[2017-04-15 08:00] VITALS: BP 116/53
[2017-04-15] MEDS: LACTOBACILLUS Acidoph/Bulgar (LACTINEX/FLORANEX) TAB PO SCH (08:25)
[2017-04-15] MEDS: PANTOPRAZOLE 40 MG/10 ML (PROTONIX) VIAL IV SCH (08:25)
[2017-04-15] MEDS: fentaNYL INJECTION 100 MCG/2 ML AMP IVP PRN ×4 (08:29→18:03)
[2017-04-15 12:00] VITALS: BP 116/53
--- NOTE | 2017-04-15 16:24 | Progress Note-Hospitalist ---
Standard Progress Note Progress Notes/Assess & Plan Date Seen 04/15/17 Time Seen by Provider: 16:20 Diagnosis c diff Assess & Plan/Chief Complaint The patient is a 61-year-old white female whom I saw yesterday in the emergency room. She had returned with a recrudescence of her Clostridium difficile diarrhea first noted on 03/27. She had taken a course of Flagyl and had improved but had recurrence on of last week. She had been unable to take in enough fluids to be effective and was admitted for fluid replacement and a switch to oral vancomycin. She reports today that she has had 7-10 stools but they have been small and overall she feels better. Physical exam: She appears more comfortable than yesterday. She is alert and oriented. Lungs are clear to auscultation. CV is regular without murmur. Abdomen shows mild tenderness to palpation there is slight tympany to percussion. Impression: Recurrent C. difficile enteritis. 2.previous history of breast cancer. Plan: Continue IV fluids and vancomycin. Labs Laboratory Tests 04/14/17 07:27 04/15/17 06:35 HUNTER BRAND MD Apr 15, 2017 16:24
[2017-04-15 16:32] VITALS: BP 83/54
[2017-04-15] MEDS: ENOXAPARIN 40 MG/0.4 ML (LOVENOX) SYR SC SCH (18:03)
[2017-04-15 20:00] VITALS: BP 121/60
[2017-04-16] MEDS: D5 NS 1000 ML IV SOLUTION 1,000 ML IV SCH ×3 (00:07→20:37)
[2017-04-16] MEDS: VANCOMYCIN ORAL 250 MG/5 ML 60 ML PO SCH ×8 (00:08→16:59)
[2017-04-16 00:13] VITALS: BP 107/58
[2017-04-16 04:00] VITALS: BP 111/69
[2017-04-16] MEDS: BETHANECHOL 25 MG (URECHOLINE) TAB PO SCH ×3 (05:27→16:59)
[2017-04-16 08:07] VITALS: BP 118/78
[2017-04-16] MEDS: LACTOBACILLUS Acidoph/Bulgar (LACTINEX/FLORANEX) TAB PO SCH (08:57)
[2017-04-16] MEDS: PANTOPRAZOLE 40 MG/10 ML (PROTONIX) VIAL IV SCH (08:58)
[2017-04-16] MEDS: fentaNYL INJECTION 100 MCG/2 ML AMP IVP PRN (12:05)
--- NOTE | 2017-04-16 14:38 | Progress Note-Hospitalist ---
Standard Progress Note Progress Notes/Assess & Plan Date Seen 04/16/17 Time Seen by Provider: 14:35 Diagnosis c diff Assess & Plan/Chief Complaint The patient reports that she is feeling a good deal better. She has had 4 stools so far today. She would rate them medium in volume and with some solid material. Physical exam: Color is better and she appears more energetic. Lungs are clear to auscultation. CV is regular without murmur. Abdomen is less distended today. Bowel sounds are still hypoactive. There is some tenderness palpation in the right lower quadrant. Impression: Recurrent clostridium difficile enteritis. Plan: Continue IV fluids. Offer low fiber diet. Add Questran. Consider discharge tomorrow. Labs Laboratory Tests 04/15/17 06:35 HUNTER BRAND MD Apr 16, 2017 14:38
[2017-04-16 16:00] VITALS: BP 126/58
[2017-04-16] MEDS: ENOXAPARIN 40 MG/0.4 ML (LOVENOX) SYR SC SCH (16:59)
[2017-04-16] MEDS: CHOLESTYRAMINE 4 GM (QUESTRAN LITE, PREVALITE) PKT PO SCH (20:37)
[2017-04-17] VITALS: BP 120/58
[2017-04-17] MEDS: VANCOMYCIN ORAL 250 MG/5 ML 60 ML PO SCH ×10 (00:59→23:36)
[2017-04-17] MEDS: BETHANECHOL 25 MG (URECHOLINE) TAB PO SCH ×3 (05:29→17:24)
[2017-04-17] MEDS: D5 NS 1000 ML IV SOLUTION 1,000 ML IV SCH ×2 (05:32→18:27)
[2017-04-17] MEDS: fentaNYL INJECTION 100 MCG/2 ML AMP IVP PRN (05:38)
[2017-04-17 08:00] VITALS: BP 119/72
[2017-04-17] MEDS: CHOLESTYRAMINE 4 GM (QUESTRAN LITE, PREVALITE) PKT PO SCH ×2 (08:57→20:30)
[2017-04-17] MEDS: LACTOBACILLUS Acidoph/Bulgar (LACTINEX/FLORANEX) TAB PO SCH (08:57)
[2017-04-17] MEDS: PANTOPRAZOLE 40 MG/10 ML (PROTONIX) VIAL IV SCH (08:57)
[2017-04-17] MEDS ORDERED: LOPERAMIDE 2 MG (IMODIUM) CAP PO PRN (10:30)
[2017-04-17] MEDS ORDERED: SUCRALFATE 1 GM (CARAFATE) TAB PO PRN (10:30)
[2017-04-17] MEDS ORDERED: HYDROcodone/APAP 10 MG/325 MG (LORTAB) TAB PO PRN (10:30)
[2017-04-17] MEDS ORDERED: ONDANSETRON 8 MG (ZOFRAN) ORAL DISSOLVE TAB PO PRN (10:45)
[2017-04-17] MEDS ORDERED: SCOPOLAMINE PATCH REMOVAL TP SCH (11:30)
[2017-04-17] MEDS: SCOPOLAMINE 1.5 MG (TRANSDERM-SCOP) PATCH TOP SCH (11:48)
--- NOTE | 2017-04-17 11:53 | Progress Note-Hospitalist ---
Progress Note HPI/CC on Admission Pt is a 61yoCF with PMH of metastatic breast cancer and c diff known to me from recent admission for c diff colitis who presents for recurrent diarrhea. She reports she stopped flagyl on 04/08 and then on 04/11 her symptoms returned with profuse diarrhea. She was seen in the ER and found to have a UTI. She was offered admission but attempted treatment at home. She has continued to have worsening diarrhea and has been unable to keep in PO fluids. She is being admitted for relapse of c diff. Progress Notes/Assess & Plan Date Seen 04/17/17 Time Seen by Provider: 10:00 Diagonsis/Assessment & Plan Chart Review: No fever Vitals stable WBC 2. 4 Hgb 7.7 Platelets 173 Na+ 137 K+ down to 3.2 Creat 0.57 Glucose 153 UA negative Pt on Vancomycin PO and Probiotic and Questran Will reconciled all home meds Patient Interview: Pt states things are going well with her diarrhea Pt's next appt with Dr. Hendricks is at the end of the month. Pt states she would like to DC. Hgb was discussed and I will reach out to Dr. Hendricks to see when DC is possible Pt asked why her WBC went up and down recently. This was discussed Pt confirms having one stool this am that was more solid. Physical exam stable Possible transfusion was discussed prior to DC Pt states she lives with her and has support from her friends Pt confirms taking the Questran in orange juice but she states it does not taste good I spoke to Dr Durant and she recommended 1 units of blood if she was severely fatigued and needed a boost so I decided to transfuse 1 unit and updated the patient and she is in agreement. AFVSS, pleasant, pale, fatigued RRR, CTAB no rales noted No edema Assessment: Recurrent and severe C diff colitis requiring Vanc PO, Questran and Probiotic Severe and symptomatic anemia requiring 1 unit of blood today Metastatic breast cancer under Dr Hendricks's care Neutropenia Plan: Possible DC tomorrow or Saturday as long as diarrhea improved Conferred with Dr. Hendricks and will give 1 unit of blood Reconciled home meds Transfusion today Continue bowel regimen Scribed by Suze Baker under the direct supervision of Dr. Fraire. COREY FRAIRE DO Apr 17, 2017 11:53
[2017-04-17] MEDS ORDERED: NS IV 500 ML 500 ML IV SCH (12:37)
[2017-04-17 14:38] VITALS: BP 119/58
[2017-04-17 15:00] VITALS: BP 120/58
[2017-04-17 15:47] VITALS: BP 123/59
[2017-04-17 17:15] VITALS: BP 130/58
[2017-04-17] MEDS: ENOXAPARIN 40 MG/0.4 ML (LOVENOX) SYR SC SCH (17:25)
[2017-04-17] MEDS: FAMOTIDINE 20 MG (PEPCID) TABLET PO SCH (20:30)
[2017-04-18] VITALS: BP 127/67
[2017-04-18] MEDS ORDERED: VANCOMYCIN ORAL SUSPENSION 60 ML BOTTLE PO SCH
[2017-04-18] MEDS: SUCRALFATE 1 GM (CARAFATE) TAB PO PRN (02:32)
[2017-04-18] MEDS: fentaNYL INJECTION 100 MCG/2 ML AMP IVP PRN (03:51)
[2017-04-18] MEDS: D5 NS 1000 ML IV SOLUTION 1,000 ML IV SCH (03:54)
[2017-04-18 04:09] VITALS: BP 137/72
[2017-04-18] MEDS: VANCOMYCIN ORAL 250 MG/5 ML 60 ML PO SCH ×4 (05:49→11:23)
[2017-04-18] MEDS: BETHANECHOL 25 MG (URECHOLINE) TAB PO SCH ×2 (05:49→11:23)
[2017-04-18 06:14] LABS: BASOPHILS % (AUTO) 0 % (0-10); EOSINOPHILS # (AUTO) 0.2 10^3/uL (0.0-0.3); EOSINOPHILS % (AUTO) 4 % (0-10); LYMPHOCYTES # (AUTO) 0.5 X 10^3 (1.0-4.0); LYMPHOCYTES % (AUTO) 13 % (12-44); MEAN CORPUSCULAR HEMOGLOBIN 33 PG (25-34); MEAN CORPUSCULAR HGB CONC 33 G/DL (32-36); MEAN CORPUSCULAR VOLUME 102 FL (80-99); MONOCYTES # (AUTO) 0.7 X 10^3 (0.0-1.0); MONOCYTES % (AUTO) 17 % (0-12); NEUTROPHILS # (AUTO) 2.6 X 10^3 (1.8-7.8); NEUTROPHILS % (AUTO) 66 % (42-75); PLATELET COUNT 236 10^3/uL (130-400); RED BLOOD COUNT 2.99 10^6/uL (4.35-5.85); RED CELL DISTRIBUTION WIDTH 16.4 % (10.0-14.5)
[2017-04-18 06:29] LABS: ALANINE AMINOTRANSFERASE 13 U/L (0-55); ALBUMIN 2.6 GM/DL (3.2-4.5); ANION GAP 9 MMOL/L (5-14); ASPARTATE AMINO TRANSFERASE 19 U/L (5-34); BILIRUBIN,TOTAL 0.4 MG/DL (0.1-1.0); BLOOD UREA NITROGEN < 2 MG/DL (7-18); BUN/CREATININE RATIO 4; CALCIUM 8.1 MG/DL (8.5-10.1); CARBON DIOXIDE 23 MMOL/L (21-32); CHLORIDE 109 MMOL/L (98-107); CREATININE SERUM 0.52 MG/DL (0.60-1.30); GFR ESTIMATED > 60; GLUCOSE 86 MG/DL (70-105); POTASSIUM 3.2 MMOL/L (3.6-5.0); SODIUM 141 MMOL/L (135-145); TOTAL PROTEIN 6.3 GM/DL (6.4-8.2)
[2017-04-18 08:00] VITALS: BP 123/85
[2017-04-18] MEDS: CHOLESTYRAMINE 4 GM (QUESTRAN LITE, PREVALITE) PKT PO SCH (08:15)
[2017-04-18] MEDS: PANTOPRAZOLE 40 MG/10 ML (PROTONIX) VIAL IV SCH (08:16)
[2017-04-18] MEDS: FAMOTIDINE 20 MG (PEPCID) TABLET PO SCH (08:16)
[2017-04-18] MEDS: LACTOBACILLUS Acidoph/Bulgar (LACTINEX/FLORANEX) TAB PO SCH (08:17)
[2017-04-18] MEDS ORDERED: KCL 20 MEQ TAB (K-DUR) PO NR (08:45)
[2017-04-18] MEDS ORDERED: VANC125S PO (09:22)
[2017-04-18] MEDS ORDERED: SCOP1PAT TOP (10:35)
[2017-04-18] MEDS ORDERED: CHOL210P2 PO (10:35)
[2017-04-18] MEDS ORDERED: ACID1TAB5 PO (10:35)
[2017-04-18] MEDS ORDERED: POTA10TA10 PO (10:35)
--- NOTE | 2017-04-18 10:35 | Discharge Summary-Hospitalist ---
Diagnosis/Chief Complaint Date of Admission Apr 14, 2017 at 09:56 Date of Discharge Admission Diagnosis c diff Discharge Diagnosis Assessment: Recurrent and severe C diff colitis requiring Vanc PO, Questran and Probiotic Severe and symptomatic anemia requiring 1 unit of blood yesterday Metastatic breast cancer under Dr Hendricks's care Neutropenia (1) C. difficile colitis Status: Acute Assessment & Plan: Relapse Given immunocompromised will escalate to Vanc Vanc started 04/14 1 SIRS- this is not sepsis Contact precautions (2) Metastatic breast cancer Status: Chronic Assessment & Plan: Follows with Dr Hendricks Will consult (3) Essential (primary) hypertension Status: Chronic Assessment & Plan: BP well controlled Cont home meds (4) Acid reflux Status: Chronic Assessment & Plan: Continue PPI and carafate (5) Macrocytic anemia Status: Chronic Assessment & Plan: trending down over the past month Likely due to chemo (has overall pancytopenia) (6) Hypoglycemia Status: Acute Assessment & Plan: likely due to poor PO intake Continue D5NS (7) Hypokalemia Status: Acute Assessment & Plan: Likely due to diarrhea Will replace (8) Prophylactic measure Assessment & Plan: D5NS at 100 Lovenox Reg diet Discharge Summary Discharge Physical Examination Allergies: Coded Allergies: mannitol (Unverified Adverse Reaction, Unknown, 04/11/17) water for injection,sterile (Unverified Adverse Reaction, Unknown, 04/11/17 ) zoledronic acid (Unverified Adverse Reaction, Unknown, 04/11/17) Vitals & I&Os Vital Signs Date Time Temp Pulse Resp B/P (MAP) Pulse Ox O2 Delivery O2 Flow Rate FiO2 04/18/17 08:00 98.9 77 20 123/85 96 Room Air Hospital Course Notes from 04/18/17 supervisor pumping: Pt was hoping to DC today Patient Interview: Pt is feeling okay, but she is experiencing some pain in her chest and believes it is pleurisy Labs were discussed: Hgb 9.9, looking better, but K+ is a bit low and will need supplemented at home Loose stools will continue for a few weeks and this was discussed. Pt was informed that she should continue her bowel regimen as well as the abx after DC. Pt states she feels okay to ambulate but has been unable to leave the room due to frequency of BMs Physical exam stable. Pt confirms her appointment with Dr. Hendricks on 05/01/17. Labs will be checked then Pt confirms [facility]. All meds will be sent to the pharmacy. AFVSS, pleasant, improved, improved paleness RRR, CTAB Nl ROM Plan: All meds to [facility] Appointment with Dr. Hendricks 05/01/17 Scribed by Suze Baker under the direct supervision of Dr. Woody. Hospital course: patient had an uneventful hospital course. She required several days of Vanc PO and Questran and Probiotic to manage the C diff diarrhea. Overall she did well but did require 1 unit of blood due to fatigue and hgb 7.7. Pt was feeling well and deemed stable for DC and I did speak to Dr Hendricks regarding the plan and she will see her as scheduled. Labs (last 24 hrs) Laboratory Tests 04/18/17 05:55: White Blood Count 4.0L, Red Blood Count 2.99L, Hemoglobin 9.9#L, Hematocrit 31L , Mean Corpuscular Volume 102H, Mean Corpuscular Hemoglobin 33, Mean Corpuscular Hemoglobin Concent 33, Red Cell Distribution Width 16.4H, Platelet Count 236, Mean Platelet Volume 9.0, Neutrophils (%) (Auto) 66, Lymphocytes (%) (Auto) 13, Monocytes (%) (Auto) 17H, Eosinophils (%) (Auto) 4, Basophils (%) ( Auto) 0, Neutrophils # (Auto) 2.6, Lymphocytes # (Auto) 0.5L, Monocytes # (Auto ) 0.7, Eosinophils # (Auto) 0.2, Basophils # (Auto) 0.0, Sodium Level 141, Potassium Level 3.2L, Chloride Level 109H, Carbon Dioxide Level 23, Anion Gap 9 , Blood Urea Nitrogen < 2L, Creatinine 0.52L, Estimat Glomerular Filtration Rate > 60, BUN/Creatinine Ratio 4, Glucose Level 86, Calcium Level 8.1L, Total Bilirubin 0.4, Aspartate Amino Transf (AST/SGOT) 19, Alanine Aminotransferase ( ALT/SGPT) 13, Alkaline Phosphatase 49, Total Protein 6.3L, Albumin 2.6L Pending Labs Laboratory Tests 04/18/17 05:55: White Blood Count 4.0, Red Blood Count 2.99, Hemoglobin 9.9, Hematocrit 31, Mean Corpuscular Volume 102, Mean Corpuscular Hemoglobin 33, Mean Corpuscular Hemoglobin Concent 33, Red Cell Distribution Width 16.4, Platelet Count 236, Mean Platelet Volume 9.0, Neutrophils (%) (Auto) 66, Lymphocytes (%) (Auto) 13, Monocytes (%) (Auto) 17, Eosinophils (%) (Auto) 4, Basophils (%) (Auto) 0, Neutrophils # (Auto) 2.6, Lymphocytes # (Auto) 0.5, Monocytes # (Auto) 0.7, Eosinophils # (Auto) 0.2, Basophils # (Auto) 0.0, Sodium Level 141, Potassium Level 3.2, Chloride Level 109, Carbon Dioxide Level 23, Anion Gap 9, Blood Urea Nitrogen < 2, Creatinine 0.52, Estimat Glomerular Filtration Rate > 60, BUN/ Creatinine Ratio 4, Glucose Level 86, Calcium Level 8.1, Total Bilirubin 0.4, Aspartate Amino Transf (AST/SGOT) 19, Alanine Aminotransferase (ALT/SGPT) 13, Alkaline Phosphatase 49, Total Protein 6.3, Albumin 2.6 Discharge Home Medications: Active Scripts Active Potassium Chloride 10 Meq Tablet.er 10 Meq PO DAILY Lactinex Chewable Tablet (L. Acidophilus/Bulgaricus) 1 Each Tab.chew 1 Each PO ACHS Questran Light Powder (Cholestyramine/Aspartame) 210 Gm Powder 210 Gm PO ACHS Transderm-Scop (Scopolamine) 1 Each Patch.td72 1.5 Mg TOP Q72H Vancomycin ORAL Compound 250mg/5 ml (Vancomycin HCl) 125 Mg/2.5 Ml Syringe 125 Mg PO UD 125MG (2.5ML) FOUR TIMES DAILY X 9 DAYS 125MG (2.5ML) TWICE DAILY X 7 DAYS 125MG (2.5ML) DAILY X 7 DAYS THEN 125MG (2.5ML) EVERY OTHER DAY X 2 WEEKS Reported Probiotic (L.acidoph & Paracasei,B.lactis) 1 Each Capsule 1 Cap PO DAILY Sucralfate 1 Gm Tablet 1 Gm PO Q6H PRN Ciprofloxacin 500 Mg/5 Ml Jenny.mc.rec 500 Mg PO BID FILLED 04/11/17 #10 FOR A 5 DAY THERAPY Loperamide (Loperamide HCl) 2 Mg Capsule 2 Mg PO Q4H PRN Famotidine 20 Mg Tablet 20 Mg PO BID Bethanechol Chloride 50 Mg Tablet 1 Tab PO TID Fluconazole 150 Mg Tablet Ondansetron HCl 8 Mg Tablet 8 Mg PO Q8H PRN Hydrocodon-Acetaminophn 10-325 (Hydrocodone/Acetaminophen) 1 Each Tablet 1 Tab PO EVERY 4-6 HOURS PRN Instructions to patient/family Please see electronic discharge instructions given to patient. Clinical Quality Measures DVT/VTE Risk/Contraindication: Risk Factor Score Per Nursin RFS Level Per Nursing on Admit: 4+=Very High COREY WOODY DO Apr 18, 2017 10:35
[2017-04-18 12:30] VITALS: BP 123/85
== END 2017-04-18 12:45 | disposition home or self-care (01) | DRG 371 ==
LOC: EDUNIT# 06:51 → ER 06:53 → 4TH 09:56
PROVIDERS: ADMIT Family Medicine; ATTEND Family Medicine
DX: A04.71 Enterocolitis due to Clostridium difficile, recurrent (principal); D61.810 Antineoplastic chemotherapy induced pancytopenia; C79.31 Secondary malignant neoplasm of brain; C50.312 Malignant neoplasm of lower-inner quadrant of left female breast; D70.1 Agranulocytosis secondary to cancer chemotherapy; I10 Essential (primary) hypertension; K21.9 Gastro-esophageal reflux disease without esophagitis; R73.9 Hyperglycemia, unspecified; E87.6 Hypokalemia; Z87.891 Personal history of nicotine dependence; Z92.3 Personal history of irradiation; Z92.21 Personal history of antineoplastic chemotherapy
CPT/HCPCS: 36415; 80048; 80053; 81000; 82962; 83735; 85025; 86850; 86900; 86901; 86920; 96360; 96361

== ENCOUNTER → 2017-04-29 | Outpatient (CLI) | payer BC ==
[~2017-04-29] MED LIST changes: +ACID1TAB5 PO; +BARIUM SUSPENSION 2.1% (VANILLA SILQ) 450 ML PO ONE; +BETH50TA PO; +CATHETER FLUSH 10 ML SYR IV PRN; +CHOL210P2 PO; +CIPR500S3 PO; +FAMO-119 PO; +FLUC150T2; +IOHEXOL 350 MG/ML 100 ML (OMNIPAQUE 350) VIAL IV ONE; +L.AC1CAP6 PO; +LOPE2CAP PO; +NS 100 ML (IVPB) BAG IV ONE; +POTA10TA10 PO; +SCOP1PAT TOP; +VANC125S PO
--- NOTE | 2017-04-29 12:13 | Diagnostic Imaging Report ---
PROCEDURE: CT chest, abdomen, and pelvis with contrast. TECHNIQUE: Multiple contiguous axial images were obtained through the chest, abdomen, and pelvis after the administration of intravenous contrast. INDICATION: Breast cancer with bone metastasis. 100 mL of Omnipaque 350 is administered intravenously. Comparison CT chest of 02/06/2017 and PET/CT of 07/17/16 are reviewed. FINDINGS: CT chest: There are findings of left mastectomy and removal of right breast implants. There is a soft tissue nodule that appears to be skin-based noted along the medial upper aspect of the mastectomy bed measuring 1.2 cm in size. The heart size is normal. The thoracic aorta is normal in caliber. No para-aortic significantly enlarged lymph nodes are seen. No mediastinal mass is noted. No pericardial or pleural effusion is seen. The lungs demonstrate mild upper lobe predominant emphysema changes. No significant consolidation, mass or suspicious nodule is seen. Surgical clips in the left axilla are noted. There is an infusion port seen in the right anterior chest wall with the catheter through the right subclavian vein terminating in the upper SVC is seen. The osseous structures demonstrate scattered subtle sclerotic lesions in the thoracic spine without obvious change, likely metastatic. CT abdomen and pelvis: There is a right hepatic dome mass measuring 2.3 cm in size suspicious for metastatic disease. In retrospect, there is perhaps a nodule measuring 7 mm in this location seen on CT from 02/06/2017. The liver demonstrates no other definite metastasis. The gallbladder, the pancreas and the adrenal glands appear unremarkable. The spleen is 13.2 cm in length, mildly enlarged. The kidneys have symmetric enhancement and contrast excretion. There are multiple hypodense lesions too small to accurately characterize most likely representing cysts. The abdominal aorta is normal in caliber. There are moderate amounts of fecal material seen in the colon. No significant free fluid or fluid collection in the abdomen or pelvis is seen. The uterus and adnexa appear grossly unremarkable. The gallbladder demonstrates mild nonspecific distention. The osseous structures demonstrate multiple sclerotic metastases without obvious change in the lumbar spine. IMPRESSION: CT chest: 1. New cutaneous nodule measuring 1.1 cm probably accessible to physical examination in the medial upper aspect of the left mastectomy bed concerning for tumor recurrence. 2. Stable sclerotic osseous metastasis. CT abdomen and pelvis: 1. Development of 2.3 cm anterior right hepatic lobe mass suggestive of liver metastasis. 2. Stable sclerotic osseous metastasis. Dictated by: Dictated on workstation # [id number]
== END ==
LOC: RAD 09:33
PROVIDERS: ATTEND Internal Medicine Hematology & Oncology
DX: C50.312 Malignant neoplasm of lower-inner quadrant of left female breast (principal); C79.51 Secondary malignant neoplasm of bone; K76.89 Other specified diseases of liver
CPT/HCPCS: 71260; 74177

== ENCOUNTER 2017-05-30 14:15 | Outpatient (RCR) | payer BC ==
[2017-03-06 13:22] LABS: BASOPHILS % (AUTO) 0 % (0-10); EOSINOPHILS % (AUTO) 0 % (0-10); HEMATOCRIT 31 % (35-52); HEMOGLOBIN 10.3 G/DL (11.5-16.0); LYMPHOCYTES # (AUTO) 0.7 X 10^3 (1.0-4.0); LYMPHOCYTES % (AUTO) 10 % (12-44); MEAN CORPUSCULAR HEMOGLOBIN 35 PG (25-34); MEAN CORPUSCULAR HGB CONC 33 G/DL (32-36); MEAN CORPUSCULAR VOLUME 106 FL (80-99); MEAN PLATELET VOLUME 9.2 FL (7.4-10.4); MONOCYTES # (AUTO) 0.2 X 10^3 (0.0-1.0); MONOCYTES % (AUTO) 2 % (0-12); NEUTROPHILS # (AUTO) 6.1 X 10^3 (1.8-7.8); NEUTROPHILS % (AUTO) 88 % (42-75); PLATELET COUNT 239 10^3/uL (130-400); RED BLOOD COUNT 2.91 10^6/uL (4.35-5.85); RED CELL DISTRIBUTION WIDTH 12.1 % (10.0-14.5); WHITE BLOOD COUNT 6.9 10^3/uL (4.3-11.0)
[2017-03-06 13:44] LABS: BUN/CREATININE RATIO 23; CALCIUM 9.3 MG/DL (8.5-10.1); CARBON DIOXIDE 25 MMOL/L (21-32); CHLORIDE 106 MMOL/L (98-107); CREATININE SERUM 0.74 MG/DL (0.60-1.30); GFR ESTIMATED > 60; GLUCOSE 154 MG/DL (70-105); POTASSIUM 4.7 MMOL/L (3.6-5.0); SODIUM 138 MMOL/L (135-145)
[2017-03-13 13:09] LABS: BASOPHILS % (AUTO) 1 % (0-10); EOSINOPHILS % (AUTO) 1 % (0-10); HEMATOCRIT 30 % (35-52); HEMOGLOBIN 9.8 G/DL (11.5-16.0); LYMPHOCYTES # (AUTO) 0.2 X 10^3 (1.0-4.0); LYMPHOCYTES % (AUTO) 10 % (12-44); MEAN CORPUSCULAR HEMOGLOBIN 35 PG (25-34); MEAN CORPUSCULAR HGB CONC 33 G/DL (32-36); MEAN CORPUSCULAR VOLUME 107 FL (80-99); MEAN PLATELET VOLUME 8.8 FL (7.4-10.4); MONOCYTES # (AUTO) 0.1 X 10^3 (0.0-1.0); MONOCYTES % (AUTO) 5 % (0-12); NEUTROPHILS # (AUTO) 1.6 X 10^3 (1.8-7.8); NEUTROPHILS % (AUTO) 84 % (42-75); PLATELET COUNT 158 10^3/uL (130-400); RED BLOOD COUNT 2.78 10^6/uL (4.35-5.85); RED CELL DISTRIBUTION WIDTH 12.2 % (10.0-14.5); WHITE BLOOD COUNT 1.9 10^3/uL (4.3-11.0)
[2017-03-13 13:25] LABS: CARBON DIOXIDE 24 MMOL/L (21-32); CHLORIDE 109 MMOL/L (98-107); CREATININE SERUM 0.71 MG/DL (0.60-1.30); POTASSIUM 4.4 MMOL/L (3.6-5.0); SODIUM 138 MMOL/L (135-145)
[2017-03-13 13:26] LABS: BUN/CREATININE RATIO 21; CALCIUM 8.5 MG/DL (8.5-10.1); GFR ESTIMATED > 60; GLUCOSE 192 MG/DL (70-105)
[2017-03-20 13:14] LABS: BASOPHILS % (AUTO) 0 % (0-10); EOSINOPHILS % (AUTO) 0 % (0-10); HEMATOCRIT 30 % (35-52); HEMOGLOBIN 10.1 G/DL (11.5-16.0); LYMPHOCYTES # (AUTO) 0.1 X 10^3 (1.0-4.0); LYMPHOCYTES % (AUTO) 3 % (12-44); MEAN CORPUSCULAR HEMOGLOBIN 35 PG (25-34); MEAN CORPUSCULAR HGB CONC 33 G/DL (32-36); MEAN CORPUSCULAR VOLUME 105 FL (80-99); MEAN PLATELET VOLUME 9.4 FL (7.4-10.4); MONOCYTES # (AUTO) 0.2 X 10^3 (0.0-1.0); MONOCYTES % (AUTO) 5 % (0-12); NEUTROPHILS # (AUTO) 3.2 X 10^3 (1.8-7.8); NEUTROPHILS % (AUTO) 91 % (42-75); PLATELET COUNT 131 10^3/uL (130-400); RED CELL DISTRIBUTION WIDTH 12.7 % (10.0-14.5); WHITE BLOOD COUNT 3.6 10^3/uL (4.3-11.0)
[2017-03-20 13:29] LABS: ALANINE AMINOTRANSFERASE 12 U/L (0-55); ALBUMIN 3.5 GM/DL (3.2-4.5); ALKALINE PHOSPHATASE 46 U/L (40-136); BILIRUBIN,TOTAL 0.6 MG/DL (0.1-1.0); BUN/CREATININE RATIO 29; CALCIUM 8.7 MG/DL (8.5-10.1); CARBON DIOXIDE 21 MMOL/L (21-32); CHLORIDE 103 MMOL/L (98-107); CREATININE SERUM 0.76 MG/DL (0.60-1.30); GFR ESTIMATED > 60; GLUCOSE 191 MG/DL (70-105); POTASSIUM 4.4 MMOL/L (3.6-5.0); SODIUM 134 MMOL/L (135-145); TOTAL PROTEIN 7.2 GM/DL (6.4-8.2)
[2017-04-10 14:55] LABS: BASOPHILS % (AUTO) 1 % (0-10); EOSINOPHILS # (AUTO) 0.2 10^3/uL (0.0-0.3); EOSINOPHILS % (AUTO) 5 % (0-10); HEMATOCRIT 29 % (35-52); HEMOGLOBIN 9.4 G/DL (11.5-16.0); LYMPHOCYTES # (AUTO) 0.5 X 10^3 (1.0-4.0); LYMPHOCYTES % (AUTO) 11 % (12-44); MEAN CORPUSCULAR HEMOGLOBIN 34 PG (25-34); MEAN CORPUSCULAR HGB CONC 32 G/DL (32-36); MEAN CORPUSCULAR VOLUME 106 FL (80-99); MEAN PLATELET VOLUME 8.3 FL (7.4-10.4); MONOCYTES # (AUTO) 0.5 X 10^3 (0.0-1.0); MONOCYTES % (AUTO) 11 % (0-12); NEUTROPHILS % (AUTO) 72 % (42-75); PLATELET COUNT 209 10^3/uL (130-400); RED BLOOD COUNT 2.76 10^6/uL (4.35-5.85); RED CELL DISTRIBUTION WIDTH 14.8 % (10.0-14.5); WHITE BLOOD COUNT 4.2 10^3/uL (4.3-11.0)
[2017-04-10 15:18] LABS: ALANINE AMINOTRANSFERASE 11 U/L (0-55); ALKALINE PHOSPHATASE 48 U/L (40-136); BILIRUBIN,TOTAL 0.3 MG/DL (0.1-1.0); BUN/CREATININE RATIO 13; CALCIUM 8.9 MG/DL (8.5-10.1); CARBON DIOXIDE 25 MMOL/L (21-32); CHLORIDE 106 MMOL/L (98-107); CREATININE SERUM 0.61 MG/DL (0.60-1.30); GFR ESTIMATED > 60; GLUCOSE 94 MG/DL (70-105); SODIUM 137 MMOL/L (135-145); TOTAL PROTEIN 6.2 GM/DL (6.4-8.2)
[~2017-05-30] VITALS: Ht 175.3 cm; Wt 62.6 kg
[~2017-05-30 14:15] MED LIST changes: -BARIUM SUSPENSION 2.1% (VANILLA SILQ) 450 ML PO ONE; -CATHETER FLUSH 10 ML SYR IV PRN; +DENOSUMAB 120 MG/1.7 ML (XGEVA) SQ SCH; +DOCETAXEL IV SCH; +FAMOTIDINE 20MG/2ML IV (CANCER CTR) IV SCH; +FULVESTRANT 250 MG/5 ML SYR (CANCER CENTER) IM SCH; -IOHEXOL 350 MG/ML 100 ML (OMNIPAQUE 350) VIAL IV ONE; +NORMAL SALINE IV SCH; -NS 100 ML (IVPB) BAG IV ONE; +NS IV 1000 ML (CANCER CTR) 1,000 ML IV SCH; +PALONOSETRON 0.25 MG, DEXAMETHASONE 10 MG/NS 50 ML IVPB IV PRN; +diphenhydrAMINE 25 MG TAB (BENADRYL) CANCER CENTER PO SCH
[2017-05-30 14:53] LABS: BASOPHILS % (AUTO) 0 % (0-10); EOSINOPHILS # (AUTO) 0.1 10^3/uL (0.0-0.3); EOSINOPHILS % (AUTO) 3 % (0-10); HEMATOCRIT 32 % (35-52); HEMOGLOBIN 10.5 G/DL (11.5-16.0); LYMPHOCYTES # (AUTO) 0.4 X 10^3 (1.0-4.0); LYMPHOCYTES % (AUTO) 14 % (12-44); MEAN CORPUSCULAR HEMOGLOBIN 34 PG (25-34); MEAN CORPUSCULAR HGB CONC 33 G/DL (32-36); MEAN CORPUSCULAR VOLUME 102 FL (80-99); MEAN PLATELET VOLUME 8.6 FL (7.4-10.4); MONOCYTES # (AUTO) 0.3 X 10^3 (0.0-1.0); MONOCYTES % (AUTO) 12 % (0-12); NEUTROPHILS # (AUTO) 1.9 X 10^3 (1.8-7.8); NEUTROPHILS % (AUTO) 71 % (42-75); PLATELET COUNT 153 10^3/uL (130-400); RED BLOOD COUNT 3.12 10^6/uL (4.35-5.85); RED CELL DISTRIBUTION WIDTH 14.2 % (10.0-14.5); WHITE BLOOD COUNT 2.7 10^3/uL (4.3-11.0)
[2017-05-30 15:18] LABS: ALANINE AMINOTRANSFERASE 19 U/L (0-55); ALBUMIN 3.6 GM/DL (3.2-4.5); ALKALINE PHOSPHATASE 43 U/L (40-136); BILIRUBIN,TOTAL 0.4 MG/DL (0.1-1.0); BUN/CREATININE RATIO 14; CALCIUM 8.8 MG/DL (8.5-10.1); CARBON DIOXIDE 26 MMOL/L (21-32); CHLORIDE 108 MMOL/L (98-107); CREATININE SERUM 0.65 MG/DL (0.60-1.30); GFR ESTIMATED > 60; GLUCOSE 98 MG/DL (70-105); SODIUM 141 MMOL/L (135-145); TOTAL PROTEIN 7.2 GM/DL (6.4-8.2)
== END 2017-06-03 | disposition home or self-care (01) ==
LOC: ONC 14:15
PROVIDERS: ATTEND Internal Medicine Hematology & Oncology
DX: Z51.0 Encounter for antineoplastic radiation therapy (principal); Z51.11 Encounter for antineoplastic chemotherapy; C50.312 Malignant neoplasm of lower-inner quadrant of left female breast; C79.51 Secondary malignant neoplasm of bone; Z17.0 Estrogen receptor positive status [ER+]; Z78.0 Asymptomatic menopausal state; Z79.899 Other long term (current) drug therapy
CPT/HCPCS: 36591; 77295; 77300; 77334; 77336; 77417; 77470; 80048; 80053; 85025; 86300; 96372; 96375; 96402; 96413

== ENCOUNTER → 2017-08-15 | Outpatient (CLI) | payer BC ==
[~2017-08-15] MED LIST changes: +BARIUM SUSPENSION 2.1% (VANILLA SILQ) 450 ML PO ONE; +CATHETER FLUSH 10 ML SYR IV PRN; -DENOSUMAB 120 MG/1.7 ML (XGEVA) SQ SCH; -DOCETAXEL IV SCH; -FAMOTIDINE 20MG/2ML IV (CANCER CTR) IV SCH; -FULVESTRANT 250 MG/5 ML SYR (CANCER CENTER) IM SCH; +IOHEXOL 350 MG/ML 100 ML (OMNIPAQUE 350) VIAL IV ONE; -NORMAL SALINE IV SCH; +NS 250 ML (IVPB) BAG IV ONE; -NS IV 1000 ML (CANCER CTR) 1,000 ML IV SCH; -PALONOSETRON 0.25 MG, DEXAMETHASONE 10 MG/NS 50 ML IVPB IV PRN; +RECEIVED CONTRAST (Hold Metformin) IV SCH; -SCOP1PAT TOP; +SCOP1PAT11 TOP; -diphenhydrAMINE 25 MG TAB (BENADRYL) CANCER CENTER PO SCH
--- NOTE | 2017-08-15 13:11 | Diagnostic Imaging Report ---
PROCEDURE: CT chest with contrast, CT abdomen and pelvis with and without contrast. TECHNIQUE: Pre and post intravenous contrast axial imaging of the abdomen and pelvis and post contrast axial imaging of the chest were performed. INDICATION: Breast cancer. FINDINGS: The previous CT abdomen and pelvis exam of 04/29/2017 noted a 1.1 cm subcutaneous nodule in the left chest wall in the region of the patient's left mastectomy site. That finding is not identified on this exam. The postsurgical changes involving the left breast seen on the previous study appear stable. There is no sign of a mass involving the right breast. In the interval since the prior exam, bilateral pleural effusions have developed. The effusion on the right measures approximately 2.4 cm in maximum depth while the left-sided effusion is estimated to be 1.0 cm in maximum depth. There may be minimal associated atelectasis/infiltrate in each lung base. The lungs are otherwise clear. There is no parenchymal lung mass visualized. The heart is stable in size and within normal limits. The aorta is not abnormally dilated, and there is no sign of dissection. There is no defect within the pulmonary arteries to indicate a pulmonary embolus. There is no mediastinal or hilar adenopathy. The thyroid gland where visualized is unremarkable. The previous exam did note a 2.3 x 2.3 cm low-density nodule involving the dome of the right lobe of the liver. That area of abnormal density has increased and now measures 3.2 x 3.8 cm in size. Just inferior to this, a new area of diminished density has developed. This measures 0.8 x 0.8 cm. There are also several other even smaller areas of diminished density scattered throughout the right lobe of the liver. These findings should be considered secondary to metastatic disease until proven otherwise. The borderline splenomegaly seen on the prior study is again evident and no different. The pancreas, the adrenals, the kidneys, the gallbladder, the aorta, and the inferior vena cava show no sign of an acute abnormality. The stomach is partially filled with oral contrast and consequently difficult to assess. Also, in the interval since the prior exam, a small amount of free fluid has developed in the pelvis. This is nonspecific in appearance. The uterus is not enlarged, but the endometrial lining of the uterus does seem thickened measuring approximately 10 mm (normal postmenopausal patient endometrial thickness 5 mm or less). This finding is nonspecific. If further study is desired, then ultrasound would be recommended. The appendix was not well visualized, but there are no indirect signs of acute appendicitis. The urinary bladder is grossly unremarkable. The bone windows again show the extensive sclerotic metastatic foci involving the spine and pelvis. These do not seem to have changed significantly since the prior study. IMPRESSION: 1. The lesion involving the right lobe of the liver seen on the prior exam has increased in size. There are also now multiple other areas of diminished density within the liver. This does suggest progressive metastatic disease. 2. The uterus is not enlarged, but the endometrial lining does seem thickened. This is abnormal in a postmenopausal patient. If further evaluation is desired, then ultrasound would be recommended. A small amount of free fluid has also developed in the pelvis since the prior exam. 3. Bilateral pleural effusions have developed since the prior study. There is also minimal associated atelectasis/infiltrate in each lower lobe. The lungs are otherwise clear. 4. The small nodular density in the subcutaneous fat of the left thorax seen on the prior exam is no longer visualized. 5. There are extensive osteoblastic metastases. These are unchanged when compared to the prior exam. Dictated by: Dictated on workstation # [id number]
== END ==
LOC: RAD 11:14
PROVIDERS: ATTEND Internal Medicine Hematology & Oncology
DX: C50.312 Malignant neoplasm of lower-inner quadrant of left female breast (principal); C79.51 Secondary malignant neoplasm of bone; K76.9 Liver disease, unspecified; J91.8 Pleural effusion in other conditions classified elsewhere; Z78.0 Asymptomatic menopausal state
CPT/HCPCS: 71260; 74178

== ENCOUNTER 2017-09-16 09:29 | Outpatient (RCR) | payer BC ==
[2017-06-20 13:32] LABS: BASOPHILS % (AUTO) 0 % (0-10); EOSINOPHILS % (AUTO) 0 % (0-10); HEMATOCRIT 32 % (35-52); HEMOGLOBIN 10.7 G/DL (11.5-16.0); LYMPHOCYTES # (AUTO) 0.4 X 10^3 (1.0-4.0); LYMPHOCYTES % (AUTO) 6 % (12-44); MEAN CORPUSCULAR HEMOGLOBIN 34 PG (25-34); MEAN CORPUSCULAR HGB CONC 34 G/DL (32-36); MEAN CORPUSCULAR VOLUME 100 FL (80-99); MEAN PLATELET VOLUME 8.6 FL (7.4-10.4); MONOCYTES # (AUTO) 0.2 X 10^3 (0.0-1.0); MONOCYTES % (AUTO) 3 % (0-12); NEUTROPHILS % (AUTO) 91 % (42-75); PLATELET COUNT 192 10^3/uL (130-400); RED BLOOD COUNT 3.19 10^6/uL (4.35-5.85); RED CELL DISTRIBUTION WIDTH 13.1 % (10.0-14.5); WHITE BLOOD COUNT 6.6 10^3/uL (4.3-11.0)
[2017-06-20 13:52] LABS: ALANINE AMINOTRANSFERASE 16 U/L (0-55); ALBUMIN 3.7 GM/DL (3.2-4.5); ALKALINE PHOSPHATASE 46 U/L (40-136); BILIRUBIN,TOTAL 0.4 MG/DL (0.1-1.0); BUN/CREATININE RATIO 21; CALCIUM 8.9 MG/DL (8.5-10.1); CARBON DIOXIDE 21 MMOL/L (21-32); CHLORIDE 107 MMOL/L (98-107); CREATININE SERUM 0.71 MG/DL (0.60-1.30); GFR ESTIMATED > 60; GLUCOSE 168 MG/DL (70-105); POTASSIUM 3.8 MMOL/L (3.6-5.0); SODIUM 138 MMOL/L (135-145); TOTAL PROTEIN 7.7 GM/DL (6.4-8.2)
[2017-06-27 14:33] LABS: BASOPHILS % (AUTO) 0 % (0-10); EOSINOPHILS % (AUTO) 0 % (0-10); HEMATOCRIT 32 % (35-52); HEMOGLOBIN 10.7 G/DL (11.5-16.0); LYMPHOCYTES # (AUTO) 0.4 X 10^3 (1.0-4.0); LYMPHOCYTES % (AUTO) 9 % (12-44); MEAN CORPUSCULAR HEMOGLOBIN 34 PG (25-34); MEAN CORPUSCULAR HGB CONC 33 G/DL (32-36); MEAN CORPUSCULAR VOLUME 102 FL (80-99); MEAN PLATELET VOLUME 8.4 FL (7.4-10.4); MONOCYTES # (AUTO) 0.3 X 10^3 (0.0-1.0); MONOCYTES % (AUTO) 6 % (0-12); NEUTROPHILS # (AUTO) 4.4 X 10^3 (1.8-7.8); NEUTROPHILS % (AUTO) 85 % (42-75); PLATELET COUNT 208 10^3/uL (130-400); RED BLOOD COUNT 3.16 10^6/uL (4.35-5.85); RED CELL DISTRIBUTION WIDTH 13.2 % (10.0-14.5); WHITE BLOOD COUNT 5.1 10^3/uL (4.3-11.0)
[2017-06-27 15:00] LABS: ALANINE AMINOTRANSFERASE 22 U/L (0-55); ALBUMIN 3.8 GM/DL (3.2-4.5); ALKALINE PHOSPHATASE 40 U/L (40-136); BILIRUBIN,TOTAL 0.4 MG/DL (0.1-1.0); BUN/CREATININE RATIO 29; CALCIUM 9.2 MG/DL (8.5-10.1); CARBON DIOXIDE 25 MMOL/L (21-32); CHLORIDE 105 MMOL/L (98-107); CREATININE SERUM 0.69 MG/DL (0.60-1.30); GFR ESTIMATED > 60; GLUCOSE 95 MG/DL (70-105); POTASSIUM 4.4 MMOL/L (3.6-5.0); SODIUM 138 MMOL/L (135-145); TOTAL PROTEIN 7.5 GM/DL (6.4-8.2)
[2017-07-04 14:35] LABS: BASOPHILS % (AUTO) 0 % (0-10); EOSINOPHILS % (AUTO) 0 % (0-10); HEMATOCRIT 31 % (35-52); HEMOGLOBIN 10.2 G/DL (11.5-16.0); LYMPHOCYTES # (AUTO) 0.4 X 10^3 (1.0-4.0); LYMPHOCYTES % (AUTO) 11 % (12-44); MEAN CORPUSCULAR HEMOGLOBIN 33 PG (25-34); MEAN CORPUSCULAR HGB CONC 33 G/DL (32-36); MEAN CORPUSCULAR VOLUME 103 FL (80-99); MEAN PLATELET VOLUME 8.6 FL (7.4-10.4); MONOCYTES # (AUTO) 0.2 X 10^3 (0.0-1.0); MONOCYTES % (AUTO) 6 % (0-12); NEUTROPHILS # (AUTO) 2.7 X 10^3 (1.8-7.8); NEUTROPHILS % (AUTO) 83 % (42-75); PLATELET COUNT 165 10^3/uL (130-400); RED BLOOD COUNT 3.05 10^6/uL (4.35-5.85); RED CELL DISTRIBUTION WIDTH 13.8 % (10.0-14.5); WHITE BLOOD COUNT 3.2 10^3/uL (4.3-11.0)
[2017-07-04 14:53] LABS: BUN/CREATININE RATIO 24; CALCIUM 9.1 MG/DL (8.5-10.1); CARBON DIOXIDE 24 MMOL/L (21-32); CHLORIDE 106 MMOL/L (98-107); CREATININE SERUM 0.68 MG/DL (0.60-1.30); GFR ESTIMATED > 60; GLUCOSE 149 MG/DL (70-105); POTASSIUM 4.1 MMOL/L (3.6-5.0); SODIUM 139 MMOL/L (135-145)
[2017-07-12 09:02] LABS: BASOPHILS % (AUTO) 1 % (0-10); EOSINOPHILS % (AUTO) 0 % (0-10); HEMATOCRIT 33 % (35-52); HEMOGLOBIN 10.7 G/DL (11.5-16.0); LYMPHOCYTES # (AUTO) 0.4 X 10^3 (1.0-4.0); LYMPHOCYTES % (AUTO) 11 % (12-44); MEAN CORPUSCULAR HEMOGLOBIN 34 PG (25-34); MEAN CORPUSCULAR HGB CONC 33 G/DL (32-36); MEAN CORPUSCULAR VOLUME 102 FL (80-99); MEAN PLATELET VOLUME 8.5 FL (7.4-10.4); MONOCYTES # (AUTO) 0.4 X 10^3 (0.0-1.0); MONOCYTES % (AUTO) 12 % (0-12); NEUTROPHILS # (AUTO) 2.6 X 10^3 (1.8-7.8); NEUTROPHILS % (AUTO) 76 % (42-75); PLATELET COUNT 161 10^3/uL (130-400); RED BLOOD COUNT 3.19 10^6/uL (4.35-5.85); RED CELL DISTRIBUTION WIDTH 14.3 % (10.0-14.5); WHITE BLOOD COUNT 3.5 10^3/uL (4.3-11.0)
[2017-07-12 09:23] LABS: ALANINE AMINOTRANSFERASE 21 U/L (0-55); ALBUMIN 3.4 GM/DL (3.2-4.5); ALKALINE PHOSPHATASE 43 U/L (40-136); BILIRUBIN,TOTAL 0.5 MG/DL (0.1-1.0); BUN/CREATININE RATIO 19; CALCIUM 8.5 MG/DL (8.5-10.1); CARBON DIOXIDE 20 MMOL/L (21-32); CHLORIDE 110 MMOL/L (98-107); CREATININE SERUM 0.72 MG/DL (0.60-1.30); GFR ESTIMATED > 60; GLUCOSE 131 MG/DL (70-105); POTASSIUM 3.7 MMOL/L (3.6-5.0); SODIUM 138 MMOL/L (135-145); TOTAL PROTEIN 6.5 GM/DL (6.4-8.2)
[2017-07-18 14:34] LABS: BASOPHILS % (AUTO) 1 % (0-10); EOSINOPHILS % (AUTO) 1 % (0-10); HEMATOCRIT 30 % (35-52); HEMOGLOBIN 10.1 G/DL (11.5-16.0); LYMPHOCYTES # (AUTO) 0.4 X 10^3 (1.0-4.0); LYMPHOCYTES % (AUTO) 15 % (12-44); MEAN CORPUSCULAR HEMOGLOBIN 34 PG (25-34); MEAN CORPUSCULAR HGB CONC 34 G/DL (32-36); MEAN CORPUSCULAR VOLUME 101 FL (80-99); MEAN PLATELET VOLUME 8.3 FL (7.4-10.4); MONOCYTES # (AUTO) 0.4 X 10^3 (0.0-1.0); MONOCYTES % (AUTO) 14 % (0-12); NEUTROPHILS # (AUTO) 1.7 X 10^3 (1.8-7.8); NEUTROPHILS % (AUTO) 69 % (42-75); PLATELET COUNT 146 10^3/uL (130-400); RED BLOOD COUNT 2.98 10^6/uL (4.35-5.85); RED CELL DISTRIBUTION WIDTH 14.4 % (10.0-14.5); WHITE BLOOD COUNT 2.5 10^3/uL (4.3-11.0)
[2017-07-18 14:55] LABS: BUN/CREATININE RATIO 18; CALCIUM 8.6 MG/DL (8.5-10.1); CARBON DIOXIDE 25 MMOL/L (21-32); CHLORIDE 107 MMOL/L (98-107); CREATININE SERUM 0.72 MG/DL (0.60-1.30); GFR ESTIMATED > 60; GLUCOSE 98 MG/DL (70-105); POTASSIUM 4.1 MMOL/L (3.6-5.0); SODIUM 140 MMOL/L (135-145)
[2017-07-25 14:47] LABS: BASOPHILS % (AUTO) 1 % (0-10); EOSINOPHILS % (AUTO) 1 % (0-10); HEMATOCRIT 32 % (35-52); HEMOGLOBIN 10.5 G/DL (11.5-16.0); LYMPHOCYTES # (AUTO) 0.4 X 10^3 (1.0-4.0); LYMPHOCYTES % (AUTO) 10 % (12-44); MEAN CORPUSCULAR HEMOGLOBIN 34 PG (25-34); MEAN CORPUSCULAR HGB CONC 33 G/DL (32-36); MEAN CORPUSCULAR VOLUME 101 FL (80-99); MEAN PLATELET VOLUME 8.4 FL (7.4-10.4); MONOCYTES # (AUTO) 0.6 X 10^3 (0.0-1.0); MONOCYTES % (AUTO) 14 % (0-12); NEUTROPHILS # (AUTO) 3.3 X 10^3 (1.8-7.8); NEUTROPHILS % (AUTO) 76 % (42-75); PLATELET COUNT 184 10^3/uL (130-400); RED BLOOD COUNT 3.12 10^6/uL (4.35-5.85); WHITE BLOOD COUNT 4.4 10^3/uL (4.3-11.0)
[2017-07-25 15:01] LABS: BUN/CREATININE RATIO 22; CALCIUM 8.7 MG/DL (8.5-10.1); CARBON DIOXIDE 25 MMOL/L (21-32); CHLORIDE 109 MMOL/L (98-107); CREATININE SERUM 0.74 MG/DL (0.60-1.30); GFR ESTIMATED > 60; GLUCOSE 147 MG/DL (70-105); POTASSIUM 3.9 MMOL/L (3.6-5.0); SODIUM 141 MMOL/L (135-145)
[2017-08-01 14:16] LABS: BASOPHILS % (AUTO) 0 % (0-10); EOSINOPHILS % (AUTO) 0 % (0-10); HEMATOCRIT 30 % (35-52); HEMOGLOBIN 9.9 G/DL (11.5-16.0); LYMPHOCYTES # (AUTO) 0.4 X 10^3 (1.0-4.0); LYMPHOCYTES % (AUTO) 9 % (12-44); MEAN CORPUSCULAR HEMOGLOBIN 34 PG (25-34); MEAN CORPUSCULAR HGB CONC 33 G/DL (32-36); MEAN CORPUSCULAR VOLUME 102 FL (80-99); MEAN PLATELET VOLUME 8.8 FL (7.4-10.4); MONOCYTES # (AUTO) 0.5 X 10^3 (0.0-1.0); MONOCYTES % (AUTO) 10 % (0-12); NEUTROPHILS # (AUTO) 3.9 X 10^3 (1.8-7.8); NEUTROPHILS % (AUTO) 81 % (42-75); PLATELET COUNT 175 10^3/uL (130-400); RED BLOOD COUNT 2.91 10^6/uL (4.35-5.85); RED CELL DISTRIBUTION WIDTH 15.9 % (10.0-14.5); WHITE BLOOD COUNT 4.9 10^3/uL (4.3-11.0)
[2017-08-01 14:34] LABS: ALANINE AMINOTRANSFERASE 15 U/L (0-55); ALBUMIN 3.5 GM/DL (3.2-4.5); ALKALINE PHOSPHATASE 41 U/L (40-136); BILIRUBIN,TOTAL 0.4 MG/DL (0.1-1.0); BUN/CREATININE RATIO 17; CALCIUM 8.8 MG/DL (8.5-10.1); CARBON DIOXIDE 20 MMOL/L (21-32); CHLORIDE 109 MMOL/L (98-107); GFR ESTIMATED > 60; GLUCOSE 110 MG/DL (70-105); POTASSIUM 4.3 MMOL/L (3.6-5.0); SODIUM 139 MMOL/L (135-145); TOTAL PROTEIN 6.4 GM/DL (6.4-8.2)
[2017-08-08 13:55] LABS: BASOPHILS % (AUTO) 0 % (0-10); EOSINOPHILS % (AUTO) 0 % (0-10); HEMATOCRIT 30 % (35-52); HEMOGLOBIN 10.3 G/DL (11.5-16.0); LYMPHOCYTES # (AUTO) 0.3 X 10^3 (1.0-4.0); LYMPHOCYTES % (AUTO) 6 % (12-44); MEAN CORPUSCULAR HEMOGLOBIN 34 PG (25-34); MEAN CORPUSCULAR HGB CONC 34 G/DL (32-36); MEAN CORPUSCULAR VOLUME 101 FL (80-99); MEAN PLATELET VOLUME 8.8 FL (7.4-10.4); MONOCYTES # (AUTO) 0.1 X 10^3 (0.0-1.0); MONOCYTES % (AUTO) 2 % (0-12); NEUTROPHILS # (AUTO) 4.7 X 10^3 (1.8-7.8); NEUTROPHILS % (AUTO) 92 % (42-75); PLATELET COUNT 200 10^3/uL (130-400); RED CELL DISTRIBUTION WIDTH 16.1 % (10.0-14.5)
[2017-08-08 14:12] LABS: BUN/CREATININE RATIO 19; CALCIUM 8.7 MG/DL (8.5-10.1); CARBON DIOXIDE 25 MMOL/L (21-32); CHLORIDE 108 MMOL/L (98-107); CREATININE SERUM 0.73 MG/DL (0.60-1.30); GFR ESTIMATED > 60; GLUCOSE 177 MG/DL (70-105); POTASSIUM 4.2 MMOL/L (3.6-5.0); SODIUM 138 MMOL/L (135-145)
[2017-08-15 12:29] LABS: BASOPHILS % (AUTO) 0 % (0-10); EOSINOPHILS % (AUTO) 0 % (0-10); HEMATOCRIT 30 % (35-52); HEMOGLOBIN 10.3 G/DL (11.5-16.0); LYMPHOCYTES # (AUTO) 0.4 X 10^3 (1.0-4.0); LYMPHOCYTES % (AUTO) 6 % (12-44); MEAN CORPUSCULAR HEMOGLOBIN 34 PG (25-34); MEAN CORPUSCULAR HGB CONC 34 G/DL (32-36); MEAN CORPUSCULAR VOLUME 101 FL (80-99); MONOCYTES # (AUTO) 0.2 X 10^3 (0.0-1.0); MONOCYTES % (AUTO) 3 % (0-12); NEUTROPHILS # (AUTO) 5.6 X 10^3 (1.8-7.8); NEUTROPHILS % (AUTO) 91 % (42-75); PLATELET COUNT 218 10^3/uL (130-400); RED CELL DISTRIBUTION WIDTH 16.4 % (10.0-14.5); WHITE BLOOD COUNT 6.2 10^3/uL (4.3-11.0)
[2017-08-15 12:45] LABS: BUN/CREATININE RATIO 23; CALCIUM 8.6 MG/DL (8.5-10.1); CARBON DIOXIDE 23 MMOL/L (21-32); CHLORIDE 107 MMOL/L (98-107); CREATININE SERUM 0.69 MG/DL (0.60-1.30); GFR ESTIMATED > 60; GLUCOSE 104 MG/DL (70-105); POTASSIUM 4.2 MMOL/L (3.6-5.0); SODIUM 136 MMOL/L (135-145)
[~2017-09-16] VITALS: Ht 175.3 cm; Wt 68.5 kg
[~2017-09-16 09:29] MED LIST changes: -BARIUM SUSPENSION 2.1% (VANILLA SILQ) 450 ML PO ONE; -CATHETER FLUSH 10 ML SYR IV PRN; +DENOSUMAB 120 MG/1.7 ML (XGEVA) SQ SCH; +DOCETAXEL IV SCH; +FAMOTIDINE 20MG/2ML IV (CANCER CTR) IV SCH; +FULVESTRANT 250 MG/5 ML SYR (CANCER CENTER) IM SCH; -IOHEXOL 350 MG/ML 100 ML (OMNIPAQUE 350) VIAL IV ONE; +NORMAL SALINE IV SCH; -NS 250 ML (IVPB) BAG IV ONE; +NS IV 1000 ML (CANCER CTR) 1,000 ML ONE; +NS IV 1000 ML (CANCER CTR) IV SCH; +PALONOSETRON 0.25 MG, DEXAMETHASONE 10 MG/NS 50 ML IVPB IV PRN; +PALONOSETRON HCL 0.25 MG, DEXAMETHASONE PF INJ (CANCER C 12 MG in NS (IVPB) CANCER CENT... IV ONE; -RECEIVED CONTRAST (Hold Metformin) IV SCH; +diphenhydrAMINE 25 MG TAB (BENADRYL) CANCER CENTER PO ONE; +diphenhydrAMINE 25 MG TAB (BENADRYL) CANCER CENTER PO SCH
[2017-09-16 10:15] LABS: BASOPHILS % (AUTO) 1 % (0-10); EOSINOPHILS # (AUTO) 0.1 10^3/uL (0.0-0.3); EOSINOPHILS % (AUTO) 2 % (0-10); HEMATOCRIT 39 % (35-52); HEMOGLOBIN 12.4 G/DL (11.5-16.0); LYMPHOCYTES # (AUTO) 0.6 X 10^3 (1.0-4.0); LYMPHOCYTES % (AUTO) 15 % (12-44); MEAN CORPUSCULAR HEMOGLOBIN 33 PG (25-34); MEAN CORPUSCULAR HGB CONC 32 G/DL (32-36); MEAN CORPUSCULAR VOLUME 101 FL (80-99); MEAN PLATELET VOLUME 8.6 FL (7.4-10.4); MONOCYTES # (AUTO) 0.5 X 10^3 (0.0-1.0); MONOCYTES % (AUTO) 13 % (0-12); NEUTROPHILS # (AUTO) 2.6 X 10^3 (1.8-7.8); NEUTROPHILS % (AUTO) 69 % (42-75); PLATELET COUNT 214 10^3/uL (130-400); RED CELL DISTRIBUTION WIDTH 15.2 % (10.0-14.5); WHITE BLOOD COUNT 3.8 10^3/uL (4.3-11.0)
[2017-09-16 10:41] LABS: ALANINE AMINOTRANSFERASE 13 U/L (0-55); ALBUMIN 3.8 GM/DL (3.2-4.5); ALKALINE PHOSPHATASE 40 U/L (40-136); BILIRUBIN,TOTAL 0.6 MG/DL (0.1-1.0); BUN/CREATININE RATIO 22; CALCIUM 9.7 MG/DL (8.5-10.1); CARBON DIOXIDE 22 MMOL/L (21-32); CHLORIDE 109 MMOL/L (98-107); CREATININE SERUM 0.76 MG/DL (0.60-1.30); GFR ESTIMATED > 60; GLUCOSE 87 MG/DL (70-105); POTASSIUM 3.9 MMOL/L (3.6-5.0); SODIUM 140 MMOL/L (135-145); TOTAL PROTEIN 7.1 GM/DL (6.4-8.2)
== END 2017-09-18 | disposition home or self-care (01) ==
LOC: ONC 09:29
PROVIDERS: ATTEND Internal Medicine Hematology & Oncology
DX: Z51.11 Encounter for antineoplastic chemotherapy (principal); C50.312 Malignant neoplasm of lower-inner quadrant of left female breast; C79.51 Secondary malignant neoplasm of bone; Z17.0 Estrogen receptor positive status [ER+]; Z78.0 Asymptomatic menopausal state; Z79.899 Other long term (current) drug therapy
CPT/HCPCS: 36591; 80048; 80053; 85025; 86300; 96372; 96375; 96402; 96413; 99213

== ENCOUNTER → 2017-11-19 | Outpatient (CLI) | payer BC ==
[~2017-11-19] MED LIST changes: +BARIUM SUSPENSION 2.1% (VANILLA SILQ) 450 ML PO ONE; -DENOSUMAB 120 MG/1.7 ML (XGEVA) SQ SCH; -DOCETAXEL IV SCH; -FAMOTIDINE 20MG/2ML IV (CANCER CTR) IV SCH; -FULVESTRANT 250 MG/5 ML SYR (CANCER CENTER) IM SCH; +IOHEXOL 350 MG/ML 100 ML (OMNIPAQUE 350) VIAL IV ONE; -NORMAL SALINE IV SCH; +NS 250 ML (IVPB) BAG IV ONE; -NS IV 1000 ML (CANCER CTR) 1,000 ML ONE; -NS IV 1000 ML (CANCER CTR) IV SCH; -PALONOSETRON 0.25 MG, DEXAMETHASONE 10 MG/NS 50 ML IVPB IV PRN; -PALONOSETRON HCL 0.25 MG, DEXAMETHASONE PF INJ (CANCER C 12 MG in NS (IVPB) CANCER CENT... IV ONE; -diphenhydrAMINE 25 MG TAB (BENADRYL) CANCER CENTER PO ONE; -diphenhydrAMINE 25 MG TAB (BENADRYL) CANCER CENTER PO SCH
--- NOTE | 2017-11-19 13:57 | Diagnostic Imaging Report ---
PROCEDURE: CT chest, abdomen, and pelvis with contrast. INDICATION: Breast cancer with bone metastasis. TECHNIQUE: CT imaging of the chest, abdomen and pelvis following the administration of intravenous contrast. CORRELATION STUDY: 08/15/2017. FINDINGS: CT CHEST: Postoperative changes of a left mastectomy. There is diffuse edema of the subcutaneous tissues of the chest wall and right breast. Multiple surgical clips in the left axilla. Enlarging right axillary lymph nodes. Marker lymph node inferiorly in the right axilla measures 14 x 9 mm with slightly smaller more superior lymph node measuring 11 x 8 mm. Abnormal subcutaneous chest wall mass just to the right at the midsternal region measures 2.3 x 1.0 cm. Additional smaller areas of nodularity along the superficial subcutaneous regions of the right breast. There does appear to be slight subcutaneous nodularity in the left anterior midchest measuring 10 x 4 mm. Right-sided [id number]-T-Tfmw catheter is unchanged. Heart size is stable. Trace pericardial effusion versus pericardial thickening. There does appear to be small but non pathologically enlarged mediastinal, subcarinal, and hilar lymph nodes. These do appear to be perhaps slightly more prominent from prior study. Bilateral pleural effusions are present, stable on the right and slightly increased on the left. Suggestion of slight nodularity along the pleural surface adjacent to the fluid. Within the lung ceballos are few vague areas of somewhat asymmetric nodularity which are currently indeterminate. Right lung base adjacent to the diaphragm at 9 x 5 mm (image 67 series 7). Right lung base near the fissure plane at 11 x 9 mm (image 63 series 7). Right middle lobe inseparable from the pleura with 4 mm nodularity (image 70 series 7). Left lower lobe adjacent to the diaphragm at area of nodularity, there is a linear projection extending superiorly, largest area measuring approximately 12 mm (image 73 series 7). Additional areas of smaller nodularity are also present. Findings are superimposed on at least mildly advanced emphysematous changes about the lung parenchyma. Patchy areas of sclerotic metastasis are present, appearing likely generally stable. Most pronounced area appears to be the superior aspect of the sternum. CT ABDOMEN and PELVIS: There has been significant adverse interval change in the appearance of the liver. There are extensive either enlarging and/or new low-density masses scattered throughout both lobes. Previously, largest area was noted in the dome of the liver which measured approximately 3.8 x 3.2 cm. This area is somewhat difficult to quantify but measures approximately 6.3 x 4.7 cm but is inseparable and adjacent to additional newer larger masses. Region slightly posterior to this area at 5.4 x 4.2 cm. For reference purposes, additional lesion in the far posterior right lobe of the liver at 3.8 x 1.9 cm. Additional one slightly more anteriorly and laterally in the right lobe of the liver measuring 3.7 x 1.9 cm. Lesion in the most lateral aspect of the left lobe of the liver at 6 cm. Multiple additional lesions are present. Some of the larger lesions do demonstrate more cystic areas centrally, suggestive of likely necrosis. Spleen, pancreas, gallbladder, adrenal glands appearing unremarkable. Low-density masses in the left lobe of the liver favoring probable cysts but incompletely characterized. No hydronephrosis. There is a scattered wall calcification of the abdominal aorta. Caval lymph nodes are present, change from prior study. Superior aortocaval lymph node just inferior to the left renal vein at 20 x 10 mm. Left periaortic infrarenal lymph node at 17 x 13 mm. There is overall worsening subcutaneous edema, consistent with anasarca. Additionally, there has been some increase in size of the abdominal and pelvic ascites. Gastrointestinal tract demonstrates no evidence for obstruction. There is however suggestion of slight areas of small bowel wall thickening centrally. High-density contrast is noted within portions of the colon. The urinary bladder is relatively decompressed. Uterus is present. The endometrium does appear to be perhaps slightly prominent in a presumably postmenopausal patient. Patchy areas of osseous sclerosis are again demonstrated, stable to perhaps slightly progressed. IMPRESSION: CT CHEST: 1. Overall, generally adverse interval change of the appearance of the chest. 2. There are areas of subcutaneous nodularity at the anterior chest wall that appear to be adversely changed, worrisome for potential metastatic disease. This in conjunction with generalized appearance of worsening subcutaneous edema. 3. While non pathologically enlarged at this time, somewhat concerning for developing right axillary lymph nodes. 4. Scattered areas of nodularity within the lung ceballos, particularly pleural based. These are currently somewhat indeterminate. These could be potentially inflammatory with the possibility of neoplasm not excluded. Bilateral pleural effusions appear slightly increased on the left. 5. Scattered areas of osseous metastatic disease. CT ABDOMEN and PELVIS: 1. Overall, generally adverse interval change in the appearance of the abdomen and pelvis consistent with worsening metastatic disease. 2. There are extensive hepatic metastases with previous lesions enlarged and multiple new masses now occupying large portion of the liver. 3. Development of aortocaval lymphadenopathy. 4. Slight interval increase in size of abdominal and pelvic ascites as well as generalized anasarca. 5. Diffuse osseous blastic metastatic disease, stable to perhaps slightly progressed. 6. There is suggestion of some areas of asymmetric particularly small bowel wall thickening. While this may be owing to the underlying abdominal edema, gastrointestinal metastatic disease would be difficult to exclude. 7. There is again noted what appears to be abnormal thickening of the endometrial lining in a presumably postmenopausal patient. Dictated by: Dictated on workstation # [id number]
== END ==
LOC: RAD 07:52
PROVIDERS: ATTEND Internal Medicine Hematology & Oncology
DX: C50.312 Malignant neoplasm of lower-inner quadrant of left female breast (principal); C79.51 Secondary malignant neoplasm of bone; C78.7 Secondary malignant neoplasm of liver and intrahepatic bile duct; R91.8 Other nonspecific abnormal finding of lung field; R59.0 Localized enlarged lymph nodes; J90 Pleural effusion, not elsewhere classified
CPT/HCPCS: 71260; 74177

== ENCOUNTER 2017-12-03 09:15 | Outpatient (RCR) | payer BC ==
[2017-10-14 11:09] LABS: BASOPHILS % (AUTO) 1 % (0-10); EOSINOPHILS # (AUTO) 0.1 10^3/uL (0.0-0.3); EOSINOPHILS % (AUTO) 2 % (0-10); HEMATOCRIT 37 % (35-52); LYMPHOCYTES # (AUTO) 0.6 X 10^3 (1.0-4.0); LYMPHOCYTES % (AUTO) 14 % (12-44); MEAN CORPUSCULAR HEMOGLOBIN 33 PG (25-34); MEAN CORPUSCULAR HGB CONC 33 G/DL (32-36); MEAN CORPUSCULAR VOLUME 100 FL (80-99); MEAN PLATELET VOLUME 8.2 FL (7.4-10.4); MONOCYTES # (AUTO) 0.5 X 10^3 (0.0-1.0); MONOCYTES % (AUTO) 10 % (0-12); NEUTROPHILS # (AUTO) 3.3 X 10^3 (1.8-7.8); NEUTROPHILS % (AUTO) 74 % (42-75); PLATELET COUNT 198 10^3/uL (130-400); RED BLOOD COUNT 3.66 10^6/uL (4.35-5.85); RED CELL DISTRIBUTION WIDTH 13.4 % (10.0-14.5); WHITE BLOOD COUNT 4.4 10^3/uL (4.3-11.0)
[2017-10-14 11:27] LABS: ALANINE AMINOTRANSFERASE 11 U/L (0-55); ALBUMIN 3.7 GM/DL (3.2-4.5); ALKALINE PHOSPHATASE 48 U/L (40-136); BILIRUBIN,TOTAL 0.5 MG/DL (0.1-1.0); BUN/CREATININE RATIO 15; CALCIUM 8.9 MG/DL (8.5-10.1); CARBON DIOXIDE 22 MMOL/L (21-32); CHLORIDE 112 MMOL/L (98-107); CREATININE SERUM 0.71 MG/DL (0.60-1.30); GFR ESTIMATED > 60; GLUCOSE 84 MG/DL (70-105); POTASSIUM 3.8 MMOL/L (3.6-5.0); SODIUM 140 MMOL/L (135-145); TOTAL PROTEIN 7.2 GM/DL (6.4-8.2)
[2017-11-19 09:32] LABS: BASOPHILS % (AUTO) 1 % (0-10); EOSINOPHILS # (AUTO) 0.1 10^3/uL (0.0-0.3); EOSINOPHILS % (AUTO) 2 % (0-10); HEMATOCRIT 37 % (35-52); HEMOGLOBIN 11.9 G/DL (11.5-16.0); LYMPHOCYTES # (AUTO) 0.4 X 10^3 (1.0-4.0); LYMPHOCYTES % (AUTO) 9 % (12-44); MEAN CORPUSCULAR HGB CONC 32 G/DL (32-36); MEAN CORPUSCULAR VOLUME 98 FL (80-99); MEAN PLATELET VOLUME 8.5 FL (7.4-10.4); MONOCYTES # (AUTO) 0.5 X 10^3 (0.0-1.0); MONOCYTES % (AUTO) 13 % (0-12); NEUTROPHILS % (AUTO) 75 % (42-75); PLATELET COUNT 209 10^3/uL (130-400); RED BLOOD COUNT 3.78 10^6/uL (4.35-5.85); RED CELL DISTRIBUTION WIDTH 13.5 % (10.0-14.5)
[2017-11-19 09:35] LABS: MEAN CORPUSCULAR HEMOGLOBIN 31 PG (25-34)
[2017-11-19 09:57] LABS: ALANINE AMINOTRANSFERASE 23 U/L (0-55); ALBUMIN 3.3 GM/DL (3.2-4.5); ALKALINE PHOSPHATASE 80 U/L (40-136); BILIRUBIN,TOTAL 0.4 MG/DL (0.1-1.0); BUN/CREATININE RATIO 14; CALCIUM 8.5 MG/DL (8.5-10.1); CARBON DIOXIDE 24 MMOL/L (21-32); CHLORIDE 108 MMOL/L (98-107); CREATININE SERUM 0.71 MG/DL (0.60-1.30); GFR ESTIMATED > 60; GLUCOSE 73 MG/DL (70-105); POTASSIUM 4.2 MMOL/L (3.6-5.0); SODIUM 138 MMOL/L (135-145); TOTAL PROTEIN 7.5 GM/DL (6.4-8.2)
[~2017-12-03 09:15] MED LIST changes: -BARIUM SUSPENSION 2.1% (VANILLA SILQ) 450 ML PO ONE; +DENOSUMAB 120 MG/1.7 ML (XGEVA) SQ SCH; +FULVESTRANT 250 MG/5 ML SYR (CANCER CENTER) IM SCH; -IOHEXOL 350 MG/ML 100 ML (OMNIPAQUE 350) VIAL IV ONE; -NS 250 ML (IVPB) BAG IV ONE
[2017-12-03 10:12] LABS: BASOPHILS % (AUTO) 1 % (0-10); EOSINOPHILS # (AUTO) 0.1 10^3/uL (0.0-0.3); EOSINOPHILS % (AUTO) 4 % (0-10); HEMATOCRIT 36 % (35-52); HEMOGLOBIN 11.2 G/DL (11.5-16.0); LYMPHOCYTES # (AUTO) 0.3 X 10^3 (1.0-4.0); LYMPHOCYTES % (AUTO) 20 % (12-44); MEAN CORPUSCULAR HEMOGLOBIN 31 PG (25-34); MEAN CORPUSCULAR HGB CONC 31 G/DL (32-36); MEAN CORPUSCULAR VOLUME 98 FL (80-99); MEAN PLATELET VOLUME 8.6 FL (7.4-10.4); MONOCYTES # (AUTO) 0.2 X 10^3 (0.0-1.0); MONOCYTES % (AUTO) 14 % (0-12); NEUTROPHILS % (AUTO) 62 % (42-75); PLATELET COUNT 107 10^3/uL (130-400); RED BLOOD COUNT 3.65 10^6/uL (4.35-5.85); RED CELL DISTRIBUTION WIDTH 14.1 % (10.0-14.5); WHITE BLOOD COUNT 1.6 10^3/uL (4.3-11.0)
[2017-12-03 10:39] LABS: ALBUMIN 3.1 GM/DL (3.2-4.5); BILIRUBIN,TOTAL 0.4 MG/DL (0.1-1.0); CALCIUM 8.6 MG/DL (8.5-10.1); CREATININE SERUM 1.02 MG/DL (0.60-1.30)
== END 2018-01-01 | disposition home or self-care (01) ==
LOC: ONC 09:15
PROVIDERS: ATTEND Internal Medicine Hematology & Oncology
DX: C50.312 Malignant neoplasm of lower-inner quadrant of left female breast (principal); C79.51 Secondary malignant neoplasm of bone; Z17.0 Estrogen receptor positive status [ER+]; Z78.0 Asymptomatic menopausal state; Z79.899 Other long term (current) drug therapy
CPT/HCPCS: 36415; 36591; 80053; 82306; 85025; 86300; 96372; 96402; 99213

== ENCOUNTER 2018-01-06 20:17 | Inpatient (IN) | payer BC ==
[~2018-01-06] VITALS: Ht 175.3 cm; Wt 61.0 kg
[~2018-01-06 20:17] MED LIST changes: -DENOSUMAB 120 MG/1.7 ML (XGEVA) SQ SCH; -FULVESTRANT 250 MG/5 ML SYR (CANCER CENTER) IM SCH
[2018-01-06 21:43] LABS: BILIRUBIN,URINE NEGATIVE (NEGATIVE); CLARITY,URINE CLEAR; COLOR,URINE YELLOW; GLUCOSE, URINE (UA) NEGATIVE (NEGATIVE); KETONES,URINE NEGATIVE (NEGATIVE); LEUKOCYTE ESTERASE ,URINE NEGATIVE (NEGATIVE); NITRITE,URINE NEGATIVE (NEGATIVE); PH,URINE 6 (5-9); PROTEIN,URINE 1+ (NEGATIVE); UROBILINOGEN,URINE NORMAL (NORMAL)
[2018-01-06 21:49] LABS: SQUAMOUS EPITHELIAL CELL,UR 0-2 /HPF
[2018-01-06 21:53] LABS: BASOPHILS % (AUTO) 1 % (0-10); EOSINOPHILS # (AUTO) 0.1 10^3/uL (0.0-0.3); EOSINOPHILS % (AUTO) 2 % (0-10); HEMATOCRIT 35 % (35-52); HEMOGLOBIN 11.3 G/DL (11.5-16.0); LYMPHOCYTES # (AUTO) 0.5 X 10^3 (1.0-4.0); LYMPHOCYTES % (AUTO) 9 % (12-44); MEAN CORPUSCULAR HEMOGLOBIN 32 PG (25-34); MEAN CORPUSCULAR HGB CONC 33 G/DL (32-36); MEAN CORPUSCULAR VOLUME 97 FL (80-99); MEAN PLATELET VOLUME 9.1 FL (7.4-10.4); MONOCYTES # (AUTO) 0.9 X 10^3 (0.0-1.0); MONOCYTES % (AUTO) 16 % (0-12); NEUTROPHILS # (AUTO) 3.9 X 10^3 (1.8-7.8); NEUTROPHILS % (AUTO) 73 % (42-75); PLATELET COUNT 219 10^3/uL (130-400); RED BLOOD COUNT 3.57 10^6/uL (4.35-5.85); WHITE BLOOD COUNT 5.4 10^3/uL (4.3-11.0)
--- NOTE | 2018-01-06 22:05 | Diagnostic Imaging Report ---
PATIENT HISTORY: Fever, history of breast cancer with metastases to bone. TECHNIQUE: 2 views of the chest COMPARISON: 04/11/2017 FINDINGS: Lung volumes are normal. There is a small left and trace right pleural effusion, which appears new. No pneumothorax is seen. Surgical clips are noted in the left axilla. The heart is normal in size. IMPRESSION: New small left and trace right pleural effusions. Dictated by: Dictated on workstation # [id number]
[2018-01-06 22:13] LABS: ALANINE AMINOTRANSFERASE 59 U/L (0-55); ALBUMIN 3.2 GM/DL (3.2-4.5); ALKALINE PHOSPHATASE 182 U/L (40-136); BILIRUBIN,TOTAL 0.9 MG/DL (0.1-1.0); BUN/CREATININE RATIO 24; CARBON DIOXIDE 22 MMOL/L (21-32); CHLORIDE 103 MMOL/L (98-107); CREATININE SERUM 0.75 MG/DL (0.60-1.30); GFR ESTIMATED > 60; GLUCOSE 71 MG/DL (70-105); MAGNESIUM 1.7 MG/DL (1.8-2.4); POTASSIUM 4.3 MMOL/L (3.6-5.0); SODIUM 133 MMOL/L (135-145); TOTAL PROTEIN 8.2 GM/DL (6.4-8.2)
[2018-01-06] MEDS ORDERED: PIPERACILLIN SODIUM/TAZOBACTAM 4.5 GM in D5W 100 ML IVPB 100 ML IV ONE (22:30)
[2018-01-06] MEDS ORDERED: ACETAMINOPHEN 500 MG TAB (TYLENOL) PO PRN (23:45)
[2018-01-06] MEDS ORDERED: D5 1/2 NS 1000 ML IV SOLUTION 1,000 ML IV SCH (23:45)
[2018-01-06] MEDS ORDERED: CATHETER FLUSH 10 ML SYR IV PRN (23:45)
[2018-01-06] MEDS ORDERED: ONDANSETRON 4 MG/2 ML (SDV) Z0FRAN IV PRN (23:45)
--- OUTSIDE RECORDS SUMMARY | 2018-01-06 23:46 | XMS REPORT ---
Author Author Lisbeth Diehl Organization [facility] Address [address] [place], [place] [id number] Care Team Providers Care Coastal And Estuary Specialist Name Role Phone Lisbeth Diehl PCP Unavailable Allergies and Adverse Reactions Name Reaction Notes Bactrim DS She does not remember Plan of Treatment Not available. Medications Active Name Start Date Estimated Completion Date SIG Comments amlodipine 10 mg oral tablet take 1 tablet (10 mg) by oral route once daily Stool Softener oral OTC-as directed Xgeva 120 mg/1.7 mL (70 mg/mL) subcutaneous solution inject 1.7 milliliters (120 mg) by subcutaneous route every 4 weeks Femara 2.5 mg oral tablet take 1 tablet (2.5 mg) by oral route once daily guanfacine 2 mg oral tablet take 1 tablet (2 mg) by oral route once daily at bedtime bethanechol chloride 25 mg oral tablet 04/02/2017 Take one tab PO TID Name Start Date Expiration Date SIG Comments prednisone 20 mg oral tablet 05/21/2013 take 2 tablets by mouth daily x2 days then 1 tablet daily x4 days. Keflex 500 mg oral capsule 02/08/2014 02/15/2014 take 1 capsule (500 mg) by oral route every 12 hours for 7 days Herceptin 440 mg intravenous recon soln guanfacine oral amlodipine oral Calcium 500 oral Vitamin D3 oral chemo therapy Vitamin D2 50,000 unit oral capsule take 1 capsule by oral route once daily Calcium 500 500 mg calcium (1,250 mg) oral tablet take 1 tablet by oral route daily Ibrance 125 mg oral capsule take 1 capsule (125 mg) by oral route once daily Discontinued Name Start Date Discontinued Date SIG Comments sulfamethoxazole-trimethoprim 800-160 mg oral tablet 07/26/2015 take 1 tablet by oral route 2 times per day prednisone 20 mg oral tablet 07/26/2015 take 1 mg/kg by oral route once daily cyclobenzaprine 10 mg oral tablet 07/26/2015 take 1 tablet (10 mg) by oral route 3 times per day amlodipine 5 mg oral tablet 07/26/2015 take 1 tablet (5 mg) by oral route once daily gabapentin 300 mg oral capsule 07/26/2015 take 3-4 capsule by mouth daily at bedtime methocarbamol 500 mg oral tablet 07/26/2015 take 1 tablets (500 mg) by oral route 4 times per day hydrocodone-acetaminophen 7.5-325 mg oral tablet 07/26/2015 take 1 tablet by oral route every 6 hours as needed for pain lisinopril 10 mg oral tablet 07/26/2015 take 1-2 tablet by oral route once daily atenolol 50 mg oral tablet 07/26/2015 take 1-2 tablet by oral route twice daily nitroglycerin 0.4 mg sublingual tablet, sublingual 07/26/2015 place 1 tablet (0.4 mg) by sublingual route 5-10 minutes as needed for chest pain omeprazole 20 mg oral tablet,delayed release (DR/EC) 07/26/2015 take 1 tablet by oral route 2 times a day tramadol 50 mg oral tablet 07/26/2015 take 1 tablet (50 mg) by oral route every 4 hours as needed anastrozole 1 mg oral tablet 12/21/2016 take 1 tablet (1 mg) by oral route once daily Problem List Description Status Onset Hypertension Active Recurrent breast cancer Active 02/05/2014 Left breast mass Active 02/09/2014 Breast cancer Active 12/21/2016 Metastatic breast cancer Active 02/26/2017 Carcinoma of breast metastatic to bone, unspecified laterality Active 2016 Carcinoma of lower-inner quadrants of both breasts, estrogen receptor positive Active 04/02/2017 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/2017 Vital Signs Date Time BP-Sys(mm[Hg] BP-Ariana(mm[Hg]) HR(bpm) RR(rpm) Temp WT HT HC BMI BSA BMI Percentile O2 Sat(%) 04/02/2017 11:17:00 AM 135 lbs 69.5 in 19.65 kg/m2 1.73 m2 02/26/2017 9:57:00 AM 107 mmHg 66 mmHg 64 bpm 18 rpm 98 F 142 lbs 69.5 in 20.6689 kg/m 1.7772 m 12/21/2016 9:50:00 AM 132 mmHg 73 mmHg 51 bpm 20 rpm 97.8 F 148 lbs 70 in 21.24 kg/m2 1.82 m2 07/26/2015 2:45:00 PM 128 mmHg 52 mmHg 58 bpm 18 rpm 97.7 F 165 lbs 70 in 23.6748 kg/m 1.9226 m 02/05/2014 9:01:00 AM 137 mmHg 88 mmHg 64 bpm 18 rpm 97.8 F 166.312 lbs 70 in 23.86 kg/m2 1.93 m2 05/28/2013 8:47:00 AM 124 mmHg 66 mmHg 71 bpm 18 rpm 98.8 F 168 lbs 70 in 24.1052 kg/m 1.94 m 98 % 05/21/2013 8:22:00 AM 126 mmHg 68 mmHg 71 bpm 18 rpm 97.5 F 169.375 lbs 70 in 24.30 kg/m2 1.95 m2 67 % Social History Name Description Comments Tobacco Former smoker Alcohol Use - Occasional PSH&TC History of Procedures Date Ordered Description Order Status 07/26/2015 12:00 AM CYTOPATH C/V THIN LAYER Reviewed 07/26/2015 12:00 AM SPECIMEN HANDLING OFFICE-LAB Reviewed 05/28/2013 12:00 AM X-RAY EXAM KNEE 4 OR MORE Reviewed Results Summary Not available. History Of Immunizations Not available. History of Past Illness Name Date of Onset Comments Hypertension Breast Cancer metastatic triple-positive left breast cancer to bones Degenerative disc disease Lumbar spinal stenosis GERD (gastroesophageal reflux disease) Recurrent breast cancer 02/05/2014 Left breast mass 02/09/2014 Breast cancer 12/21/2016 Metastatic breast cancer 02/26/2017 Carcinoma of breast metastatic to bone, unspecified laterality 04/02/2017 Carcinoma of lower-inner quadrants of both breasts, estrogen receptor positive 04/02/2017 Retention of urine 04/02/2017 Left knee pain May 21 2013 8:25AM Left knee pain May 28 2013 8:49AM Recurrent breast cancer Feb 05 2014 11:40AM Left breast mass Feb 05 2014 9:47AM Routine gynecological examination Jul 26 2015 2:54PM Breast cancer Dec 21 2016 10:21AM Breast cancer Dec 21 2016 10:44AM Metastatic breast cancer Feb 26 2017 9:58AM Retention of urine Apr 02 2017 11:18AM Malignant neoplasm of lower-inner quadrant of right female breast Apr 02 2017 11:18AM Malignant neoplasm of lower-inner quadrant of left female breast Apr 02 2017 11:18AM Estrogen receptor positive status [ER+] Apr 02 2017 11:18AM Malignant neoplasm of unspecified site of unspecified female breast Apr 02 2017 11:18AM Payers Insurance Name Company Name Plan Name Plan Number Policy Number Policy Group Number Start Date [id number] Self Insurance Fund *INVALID State Self Insurance [id number] N/A [id number]A [facility] [id number] N/A History of Encounters Visit Date Visit Type Provider 04/02/2017 Office visit Lisbeth Diehl MD 02/26/2017 Surgery Julio Duenas DO 02/26/2017 Office visit Julio Duenas DO 12/21/2016 Procedures Julio Duenas DO 07/26/2015 Office visit Domi Shields APRN 03/04/2014 Hospital Julio Duenas DO 02/05/2014 Office visit Julio Duenas DO 05/28/2013 Office visit Caro Dale APRN 05/21/2013 Office visit Caro Dale APRN
--- OUTSIDE RECORDS SUMMARY | 2018-01-06 23:46 | XMS REPORT | CCD ---
Author TRACY Schilling Unknown Address [address] [facility] [address] [place] [address] Care Team Providers Care Treasury Manager Name Role Phone BRENDA GRANDE DO [facility] Allergies Allergy Code Allergy Type Reaction Status BACTRIM 509009 Drug allergy Active Active Medications Unknown or Not Available. Problems Unknown or Not Available. Procedures Procedure Code Procedure Type Date Insertion of tunneled [place] [address] CPT 02/26/2017 FLUOROSCOPY < [id number] 02/26/2017 CX CHEST [id number] 02/26/2017 Results Unknown or Not Available. Function Status Unknown or Not Available. History of Immunizations Immunization Code Date Td (adult), 2 Lf tetanus toxoid, preservative free, adsorbed 09 09/02/1990 Plan of Treatment Unknown or Not Available. Social History Smoking Status Code Start Date End Date Never smoker [id number] Vital Signs Vital Sign Value Unit Date/Time Recent/Initial? BMI (Body Mass Index) 21.41 kg/m2 02/25/2017 15:09 Initial VS Weight Measured 145 [lb_av] 02/25/2017 15:09 Initial VS Height 69 [in_i] 02/25/2017 15:09 Initial VS BSA (Body Surface Area) 1.79 m2 02/25/2017 15:09 Initial VS Respiratory Rate 19 /min 02/26/2017 12:44 Initial VS Heart Rate 81 /min 02/26/2017 12:44 Initial VS O2 % BldC Oximetry 100 % 02/26/2017 12:44 Initial VS BP Systolic 121 mm[Hg] 02/26/2017 12:45 Initial VS BP Diastolic 77 mm[Hg] 02/26/2017 12:45 Initial VS BP Systolic 115 mm[Hg] 02/26/2017 13:12 Most Recent VS BP Diastolic 64 mm[Hg] 02/26/2017 13:12 Most Recent VS Respiratory Rate 17 /min 02/26/2017 13:12 Most Recent VS Heart Rate 48 /min 02/26/2017 13:12 Most Recent VS O2 % BldC Oximetry 97 % 02/26/2017 13:12 Most Recent VS Function Status Unknown or Not Available. Goals Unknown or Not Available. ASSESSMENTS Unknown or Not Available. Health Concerns Section Unknown or Not Available.
--- OUTSIDE RECORDS SUMMARY | 2018-01-06 23:46 | XMS REPORT ---
Author Julio Bennett [facility] Address [address] [place], [place] [address] Care Team Providers Care Resource Specialist Name Role Phone Julio Duenas PCP Unavailable Allergies and Adverse Reactions Name Reaction Notes Bactrim DS Plan of Treatment Not available. Medications Active Name Start Date Estimated Completion Date SIG Comments amlodipine 10 mg oral tablet take 1 tablet (10 mg) by oral route once daily Vitamin D2 50,000 unit oral capsule take 1 capsule by oral route once daily Calcium 500 500 mg calcium (1,250 mg) oral tablet take 1 tablet by oral route daily Stool Softener oral OTC-as directed Xgeva 120 mg/1.7 mL (70 mg/mL) subcutaneous solution inject 1.7 milliliters (120 mg) by subcutaneous route every 4 weeks Femara 2.5 mg oral tablet take 1 tablet (2.5 mg) by oral route once daily Ibrance 125 mg oral capsule take 1 capsule (125 mg) by oral route once daily guanfacine 2 mg oral tablet take 1 tablet (2 mg) by oral route once daily at bedtime Name Start Date Expiration Date SIG Comments [...] 500 oral Vitamin D3 oral chemo therapy Discontinued Name Start Date Discontinued Date SIG [...] mass Active 02/09/2014 Breast cancer Active 12/21/2016 Vital Signs Date Time BP-Sys(mm[Hg] BP-Ariana(mm[Hg]) HR(bpm) RR(rpm) Temp WT HT HC BMI BSA BMI Percentile O2 Sat(%) 12/21/2016 9:50:00 AM 132 mmHg 73 mmHg [...] KNEE 4 OR MORE Reviewed Results Summary Date and Description Results 07/26/2015 3:46 PM Pap Smear Collected History Of Immunizations Not available. History of Past Illness Name Date of Onset Comments Hypertension Breast Cancer metastatic triple-positive left breast cancer to bones Degenerative disc disease Lumbar spinal stenosis GERD (gastroesophageal reflux disease) Recurrent breast cancer 02/05/2014 Left breast mass 02/09/2014 Breast cancer 12/21/2016 Left knee pain May 21 2013 8:25AM Left knee pain May 28 2013 8:49AM Recurrent breast cancer Feb 05 2014 11:40AM Left breast mass Feb 05 2014 9:47AM Routine gynecological examination Jul 26 2015 2:54PM Breast cancer Dec 21 2016 10:21AM Payers Insurance Name Company Name Plan Name Plan Number Policy Number Policy Group Number Start Date BCBS [facility] [id number] N/A [facility] Self Insurance Fund *INVALID State Self Insurance [id number] [id number] [id number] N/A History of Encounters Visit Date Visit Type Provider 12/21/2016 Procedures Julio Duenas DO 07/26/2015 Office visit Domi Shields APRN 03/04/2014 Hospital Julio Duenas DO 02/05/2014 Office visit Julio Duenas DO 05/28/2013 Office visit Caro Dale APRN 05/21/2013 Office visit Caro Dale APRN
--- OUTSIDE RECORDS SUMMARY | 2018-01-06 23:46 | XMS REPORT | Clinical Summary ---
Author Author [facility] Organization [facility] Address Unknown Phone Unavailable Care Team Providers Care Ed Transporter Name Role Phone Dank Haskins PCP Source Comments Some departments are not documenting in the electronic medical record. If you do not see the information that you expected, contact Release of Information in the Health Information Management department at [phone] for further assistance in locating additional records.[facility] Allergies Active Allergy Reactions Severity Noted Date Comments Nickel RASH Medium 07/23/2016 Zoledronic Acid JOINT PAIN Low 09/27/2016 Current Medications Prescription Sig. Disp. Refills Start End Date Status Date guanfacine ER(+) (INTUNIV Take 2 mg by mouth daily. Active ER) 2 mg tablet amLODIPine (NORVASC) 10 Take 10 mg by mouth Active mg tablet daily. letrozole (FEMARA) 2.5 mg Take 1 Tab by mouth 90 Tab 3 08/23/19 Active tablet daily. 17 CALCIUM CARBONATE Take by mouth. Active (CALCIUM 500 PO) IBRANCE 125 mg capsule 01/05/20 Active 17 denosumab (XGEVA) 120 Inject 120 mg under the Active mg/1.7 mL (70 mg/mL) skin every 28 days. injection traMADol (ULTRAM) 50 mg Take 1 tablet by mouth 90 tablet 0 02/07/20 Active tablet every 6 hours as needed 17 for Pain. 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 Re biopsy at showed left grade 2 IDC (ER92%, PR84%, HER2 0+, Ki-67 22%) with positive lymph node and mets in L3 and L4, dx 08/2016 2. Recurrent left IDC (ER100%, PR97%, HER2 2+, FISH positive) with possible bone mets, dx 02/2014 3. History of left DCIS, 2000 4. BRCA 1/2 negative HISTORY: Ms. Hope is a female who presented to [facility] on 07/11/2016 at age 61 for evaluation of metastatic left breast cancer. Ms. Hope has a history of left DCIS in 2000. She was treated with left mastectomy/SLNB. She underwent tram flap in 2000 or 2001. She underwent bilateral breast augmentation in 2007. In February 2014, patient noticed skin changes on her left breast. Patient had a left breast biopsy on 02/05/14 and pathology revealed metastatic breast carcinoma with lymphatic invasion present. A PET/CT Whole Body Scan was done on 02/15/14 and extensive bony activity accumulation was found throughout the cervical, thoracic and lumbar spine, the humeri, left scapula, sacrum, pelvic bones and femurs that suggested extensive metastatic disease. Patient completed 7 cycles of Taxotere, Cytoxan, Herceptin, and Perjeta on 06/28/14 and started Xgeva on 02/22/14. Patient was then started on Herceptin, Perjeta, Arimidex, and Xgeva that was to be continued until disease progression was tolerated. Patient had a whole body bone scan on 05/10/16 and increased activity was found in her left femur. A CT scan of the chest, abdomen and pelvis on 05/09/16 showed increasing masses in the patient's left breast. The Herceptin, Perjeta, and Arimidex regimen was discontinued and patient was started on Kadcyla and Faslodex. Xgeva was also continued to prevent bone fractures. Patient reports she then decided to see a different medical oncologist. Patient reports she was not told the results of the PET/CT scan on 02/15/14 and states she was told she was in remission. Patient saw Dr. Matthew Hendricks in June [address] Hendricks's plan is to have a surgeon perform bilateral mastectomies on the patient because the patient is having bilateral breast pain. Dr. Hendricks's plan also includes taking patient off of the Faslodex and having her receive Kadcyla alone and change her Xgeva from monthly to every 3 months. Patient's last dose of Faslodex was on 06/16/16 and her last dose of Kadcyla was on 06/20/16. Patient is scheduled to receive her next dose of Kadcyla on 07/09/16. Patient reports she noticed a left chest lesion and lump in October 2015. Patient wanted the lump "checked out" but reports a mammogram was not performed until 04/18/16. Patient reports she has a black spot on her left chest that is approximately the size of a quarter and feels very hard. Patient had constant, sharp pain daily in both breasts and both axillary areas. Patient denies right breast skin changes or nipple discharge. Patient reports she had a right breast biopsy in 1999 at [facility] in [place], [place]. Patient reports pathology was benign. PET scan in July 2016 revealed abnormal right axillary lymph nodes, left breast masses, abnormal pelvic lymph nodes, and osseous metastasis to the lumbar spine, pelvis, and proximal femur. Right axillary sono-guided biopsy 07/23/16 ([facility]) revealed benign lymph node. Ms. Hope underwent repeat left breast biopsy 08/07/16 ([facility]) showed grade 3 hormone positive, HER2 negative IDC. Biopsy of L3 and L4 revealed osseous metastasis. Ms. Hope started Palbociclib and letrozole in August 2016. Ms. Hope underwent left completion mastectomy/implant removal/advancement flap on 10/09/16. PATHOLOGY: Tumor: Tumor Site: Two tumors, at 8:00 and at 13:00 respectively Tumor Bed Identified: Yes Size/Extent of Tumor Bed: 8:00: 5.7 x 4.4 x 3.5 cm 1-3:00: 2.5 x 1.8 x 1.8 cm Size/Extent of Residual Invasive Tumor: 8:00: 5.7 x 4.4 x 3.5 cm 1-3:00: 2.5 x 1.8 x 1.8 cm Margins Free From Tumor: Yes Grade: 2 Lymph Nodes: N/A LVSI: yes BREAST IMAGING: Mammogram: -- Right diagnostic mammogram 07/19/15 ([place], [place]) revealed heterogeneously dense breast tissue. Implant was seen. A biopsy clip was present. There were no dominant masses, suspicious calcification or architectural distortion. -- Left diagnostic mammogram 04/18/16 ([place], [place]) revealed scattered fibroglandular density. There was a 1.8 cm left superolateral breast irregular mass. 3.2 cm left inferior medial irregular breast mass with second close approximating irregular mass measuring 1.2 cm. No further work up was requested since patient is on chemotherapy. Ultrasound: -- Left breast ultrasound 07/11/16 ([facility]) revealed at 8:00 approximately 10 cm from the nipple there was a heterogeneous, predominantly hypoechoic mass measuring 4.1 x 3.9 x 4.4 cm. The overlying skin was not well seen, although clinically there was invasion of the skin. Adjacent to this at 8:00, approximately 12 cm from the nipple, there was a heterogeneous, predominately hypoechoic mass measuring 2.3 x 1.4 x 2.5 cm. There was an additional, heterogeneous, predominantly isoechoic mass within the left breast at 1:30 proximal 4 cm from the nipple. This mass measured 2.6 x 1.3 x 2.7 cm. A small hypoechoic focus extended from the mass to the skin surface, and skin involvement cannot be ruled out. The axilla, and internal mammary lymph node chains were evaluated, showing no adenopathy. MRI: -- Bilateral breast MRI ([facility]) revealed no suspicious right breast findings. Within the medial aspect of the left breast, contiguous with the implant, at the 8:00 position there was an irregular 4.6 x 3.7 cm heterogeneously enhancing mass with predominantly washout kinetics. The mass demonstrates an internal area of nonenhancing T1 hyperintense signal likely reflecting necrosis and blood products. The mass was contiguous with overlying skin thickening and enhancement consistent with direct cutaneous extension. Just inferior and anteromedial to the dominant mass there was a 1.7 x 0.9 cm oval heterogeneously enhancing mass with washout kinetics. Within the subareolar region there was a 2.6 x 1.4 cm oval heterogeneously enhancing mass with washout kinetics. Lateral and inferior to this mass within the subareolar region approximately 1.5 cm below the nipple there was a 1 cm enhancing mass which was contiguous with the overlying skin without direct invasion. No additional masses or axillary adenopathy. Other: -- PET/CT 02/15/14 ([place], [place]) Impression: 1. Intense activity accumulation in the left breast anteriorly. This could relate to the primary lesion. 2. Left axillary and lower neck lymph nodes with enlargement and intense FDG accumulation suggest metastatic disease. There are also some lymph nodes in the right axilla with intense FDG accumulation. 3. Extensive bony activity accumulation throughout the cervical, thoracic and lumbar spine, the humeri, left scapula, sacrum, pelvic bones and femurs also suggests extensive metastatic disease. 4. No significant activity accumulation is seen in the lungs or the liver. 5. This would indicate stage IV breast cancer. -- Brain MRI 02/19/14 ([place]) revealed abnormal bone marrow signal consistent with a marrow recruitment or replacement process such as metastatic disease. No acute intracranial abnormality. -- CT CAP 07/12/14 ([place]) revealed CT Chest Impression: Osseous inhomogeneity with scattered irregular areas of sclerosis which may represent metastatic disease.CT Abdomen and Pelvis Impression: Osseous inhomogeneity with scattered small areas of sclerosis which may represent metastatic disease. -- CT CAP 10/26/15 ([place]) revealed a left medial left breast mass measuring 1.8 cm, previously 5 mm. Stable osseous heterogeneity with vertebral and sternal sclerosis. Degenerative changes of the partially visualized spine. Similar appearing osseous heterogeneity with similar appearing scattered vertebral and pelvic sclerosis. -- CT CAP 05/09/16 ([place]) revealed stable osseous heterogeneity with vertebral and sternal sclerotic lesions. No evidence of pulmonary metastasis. There was significant increased irregular left chest mass measuring 3.8 x 3 cm compared to 1.8 x 1.6 cm previously. There was a new central left chest mass measuring 1.8 x 2.4 cm. Degenerative changes of the partially visualized spine with caudal lumbar spine facet hypertrophy. Similar appearing osseous heterogeneity with similar appearing scattered vertebral and pelvic sclerotic lesions. -- Bone scan 05/10/16 ([place]) revealed focal activity accumulation in the proximal left femoral shaft. This may represent bony metastasis. There was some intense activity accumulation in the sternum. This was increased from previous study 9 years earlier and may represent bony metastasis. The remainder of the whole body bone scan was unremarkable. -- PET scan 07/17/16 () revealed recurrent tumor/local metastases in the left breast with metastatic disease involving the right axillary lymph node, left pelvic lymph nodes, and osseous structures of the lumbar spine, pelvis, and proximal femurs. REPRODUCTIVE HEALTH: Age at first Menarche: 14 Age at First Live : 25 Age at Menopause: 50, no HRT : 2 Para: 2 : 1 month PROCEDURE: 1. Left skin sparing mastectomy/SLNB, 2000 2. Left TRAM, 2000 or 2001 3. Bilateral breast augmentation, 2007 4. Left chest skin excision, 02/2014 5. Left completion mastectomy.implant removal/advancement flap, 10/09/16 PERTINENT PMH: HTN FAMILY HISTORY: No family history of breast or ovarian cancer PHYSICAL EXAM on PRESENTATION: Right - Exam consistent with implant. No palpable masses. Left - Exam consistent with mastectomy/flap reconstruction/implant. 5 cm mass at 9:00 with ulceration of the overlying skin. No supraclavicular or axillary adenopathy. MEDICAL ONCOLOGY: Dr. Matthew Hendricks/ Dr. Jimenez PRESENT THERAPY: Palbociclib and letrozole, started 08/2016 REFERRED BY: Dr. Matthew Hendricks Family History Medical History Relation Name Comments Diabetes Brother High Cholesterol Brother Cancer Father Diabetes Father Cancer Mother High Cholesterol Mother Hypertension Mother Hypertension Sister Thyroid Disease Sister Relation Name Status Comments Brother Alive Father Mother Alive Sister Alive Social History Tobacco Use Types Packs/Day Years Used Date Former Smoker Cigarettes Quit: 11/07/2007 Smokeless Tobacco: Never Used Alcohol Use Drinks/Week oz/Week Comments Yes 6 Cans of 3.6 beer 0 Standard drinks or equivalent Sex Assigned at Date Recorded Not on file Last Filed Vital Signs Vital Sign Reading Time Taken Blood Pressure 121/71 02/18/2017 11:17 AM CDT Pulse 70 02/18/2017 11:17 AM CDT Temperature 37.1 C (98.7 F) 02/18/2017 11:17 AM CDT Respiratory Rate 18 02/06/2017 1:05 PM CDT Oxygen Saturation 100% 02/18/2017 11:17 AM CDT Inhaled Oxygen - - Concentration Weight 65.9 kg (145 lb 3.2 oz) 02/18/2017 11:17 AM CDT Height 174.6 cm (5' 8.74") 02/18/2017 11:17 AM CDT Body Mass Index 21.6 02/18/2017 11:17 AM CDT Plan of Treatment Health Maintenance Due Date Last Done Comments HEPATITIS C SCREENING 1957 PHYSICAL (COMPREHENSIVE) 1964 EXAM PERTUSSIS VACCINE 1968 HIV SCREENING 1972 TETANUS VACCINE 1974 CERVICAL CANCER SCREENING 1987 BREAST CANCER SCREENING 1997 COLORECTAL CANCER 2007 SCREENING SHINGLES RECOMBINANT 2007 VACCINE (1 of 2) INFLUENZA VACCINE 03/03/2018 Implants Explanted Type Area Fund Manager Device Expiration Model / Identifier Date Serial / Lot Allergan Breast Implant Style 120 Right: ALLERGAN: 120 / Explanted: Qty: 1 on 10/09/2016 by Breast BREAST IMPLANT N/A / Cesar Ceballos MD [id number] Allergan Breast Implant Style 120 Left: ALLERGAN: 120 / Explanted: Qty: 1 on 10/09/2016 by Breast BREAST IMPLANT N/A / Dev Carson [id number] Results Not on filefrom Last 3 Months
--- OUTSIDE RECORDS SUMMARY | 2018-01-06 23:46 | XMS REPORT ---
Author Julio Bennett [facility] Address [address] [place], [place] [id number] Care Team Providers Care Metal Roofer Name Role Phone Julio Duenas PCP Unavailable [...] Active 12/21/2016 Metastatic breast cancer Active 02/26/2017 Vital Signs Date Time BP-Sys(mm[Hg] BP-Ariana(mm[Hg]) HR(bpm) RR(rpm) Temp WT HT HC BMI BSA BMI Percentile O2 Sat(%) 02/26/2017 9:57:00 AM 107 mmHg 66 mmHg 64 bpm 18 rpm 98 F 142 lbs 69.5 in 20.67 kg/m2 1.78 m2 12/21/2016 9:50:00 AM 132 mmHg 73 mmHg 51 bpm 20 rpm 97.8 F 148 lbs 70 in 21.2356 kg/m 1.8209 m 07/26/2015 2:45:00 PM 128 mmHg 52 mmHg 58 bpm 18 rpm 97.7 F 165 lbs 70 in 23.67 kg/m2 1.92 m2 02/05/2014 9:01:00 AM 137 mmHg 88 mmHg 64 bpm 18 rpm 97.8 F 166.312 lbs 70 in 23.8631 kg/m 1.9302 m 05/28/2013 8:47:00 AM 124 mmHg 66 mmHg 71 bpm 18 rpm 98.8 F 168 lbs 70 in 24.11 kg/m2 1.94 m2 98 % 05/21/2013 8:22:00 AM 126 mmHg 68 mmHg 71 bpm 18 rpm 97.5 F 169.375 lbs 70 in 24.3025 kg/m 1.9479 m 67 % Social History Name Description Comments [...] Breast cancer 12/21/2016 Metastatic breast cancer 02/26/2017 Left knee pain May 21 2013 8:25AM Left knee pain May 28 2013 8:49AM Recurrent breast cancer Feb 05 2014 11:40AM Left breast mass Feb 05 2014 9:47AM Routine gynecological examination Jul 26 2015 2:54PM Breast cancer Dec 21 2016 10:21AM Breast cancer Dec 21 2016 10:44AM Metastatic breast cancer Feb 26 2017 9:58AM Payers Insurance Name Company Name Plan Name Plan Number Policy Number Policy Group Number Start Date [id number] N/[facility] Self Insurance Fund *INVALID State Self Insurance [id number] [id number] [id number] N/A History of Encounters Visit Date Visit Type Provider 02/26/2017 Office visit Julio Duenas DO 12/21/2016 Procedures Julio Duenas DO 07/26/2015 Office visit Domi Shields FIRE CONTROL TECHNICIAN B 03/04/2014 Hospital Julio Duenas DO 02/05/2014 Office visit Julio Duenas DO 05/28/2013 Office visit Caro Dale FIRE CONTROL TECHNICIAN B 05/21/2013 Office visit Caro Dale FIRE CONTROL TECHNICIAN B
--- OUTSIDE RECORDS SUMMARY | 2018-01-06 23:47 | XMS REPORT ---
Author Author Lisbeth Diehl Organization [facility] Address [address] [place], [place] [id number] Care Team Providers Care Pigment Grinder Name Role Phone Lisbeth Diehl PCP Unavailable [...] unspecified female breast Apr 02 2017 11:18AM Retention of urine Apr 08 2017 12:46PM Payers Insurance Name Company Name Plan Name Plan Number Policy Number Policy Group Number Start Date BCBS [id number] N/A [facility] Self Insurance Fund *INVALID State Self Insurance [id number] N/A BCBS [id number] N/A [facility] [id number] N/A History of Encounters Visit Date Visit [...]
--- OUTSIDE RECORDS SUMMARY | 2018-01-06 23:47 | XMS REPORT ---
Author Author Domi Shields [facility] Address [address] [place], [place] [phone] Care Team Providers Care Drama Therapist Name Role Phone Domi Shields PCP Unavailable Allergies and Adverse Reactions Name Reaction Notes Bactrim DS Plan of Treatment Planned Activity Comments Planned Date Planned Time Plan/Goal CYTOPATH C/V THIN LAYER 07/26/2015 12:00 AM Medications Active Name Start Date Estimated Completion Date SIG Comments Herceptin 440 mg intravenous recon soln guanfacine oral amlodipine oral anastrozole 1 mg oral tablet take 1 tablet (1 mg) by oral route once daily Calcium 500 oral Vitamin D3 oral chemo therapy Name Start Date Expiration Date SIG Comments prednisone 20 mg oral tablet 05/21/2013 take 2 tablets by mouth daily x2 days then 1 tablet daily x4 days. Keflex 500 mg oral capsule 02/08/2014 02/15/2014 take 1 capsule (500 mg) by oral route every 12 hours for 7 days Discontinued Name Start Date Discontinued Date SIG [...] oral route every 4 hours as needed Problem List Description Status Onset Hypertension Active Recurrent breast cancer Active 02/05/2014 Left breast mass Active 02/09/2014 Vital Signs Date Time BP-Sys(mm[Hg] BP-Ariana(mm[Hg]) HR(bpm) RR(rpm) Temp WT HT HC BMI BSA BMI Percentile O2 Sat(%) 07/26/2015 2:45:00 PM 128 mmHg 52 mmHg [...] Ordered Description Order Status 07/26/2015 12:00 AM SPECIMEN HANDLING OFFICE-LAB Reviewed 05/28/2013 12:00 AM X-RAY EXAM KNEE 4 OR MORE Returned Results Summary Not available. History Of Immunizations Not available. History of Past Illness Name Date of Onset Comments Hypertension Breast Cancer metastatic triple-positive left breast cancer to bones Degenerative disc disease Lumbar spinal stenosis GERD (gastroesophageal reflux disease) Recurrent breast cancer 02/05/2014 Left breast mass 02/09/2014 Left knee pain May 21 2013 8:25AM Left knee pain May 28 2013 8:49AM Recurrent breast cancer Feb 05 2014 11:40AM Left breast mass Feb 05 2014 9:47AM Routine gynecological examination Jul 26 2015 2:54PM Payers Insurance Name Company Name Plan Name Plan Number Policy Number Policy Group Number Start Date [id number] [place] Self Insurance Fund *INVALID State Self Insurance [id number] N /A BCBS [id number] N/A [facility] [id number] N/A History of Encounters Visit Date Visit Type Provider 07/26/2015 Office visit Domi Shields APRN 03/04/2014 [facility] Julio Duenas DO 02/05/2014 Office visit Julio Duenas DO 05/28/2013 Office visit Caro Dale APRN 05/21/2013 Office visit Caro Dale APRN
--- OUTSIDE RECORDS SUMMARY | 2018-01-06 23:47 | XMS REPORT ---
Author Julio Bennett [facility] Address [address] [place], [place] [address] Care Team Providers Care Rental Car Porter Name Role Phone Julio Duenas PCP Unavailable [...] Number Policy Group Number Start Date [facility]BS [id number] N/A [facility] Self Insurance Fund *INVALID State Self Insurance [id number] N/A [id number] N/A [facility] [id number] N/A History of Encounters Visit Date Visit Type Provider 02/26/2017 Office visit Julio Duenas DO 12/21/2016 Procedures Julio Duenas DO 07/26/2015 Office visit Domi Shields NEUROSURGERY PHYSICIAN 03/04/2014 Hospital Julio Duenas DO 02/05/2014 Office visit Julio Duenas DO 05/28/2013 Office visit Caro Dale NEUROSURGERY PHYSICIAN 05/21/2013 Office visit Caro Dale NEUROSURGERY PHYSICIAN
--- OUTSIDE RECORDS SUMMARY | 2018-01-06 23:47 | XMS REPORT ---
Author Julio Bennett [facility] Address [address] [place], [place] [address] Care Team Providers Care Lining Strap Closer Name Role Phone Julio Duenas PCP Unavailable [...] 10:21AM Breast cancer Dec 21 2016 10:44AM Payers Insurance Name Company Name Plan Name Plan Number Policy Number Policy Group Number Start Date BCBS [facility] [id number] N/A [facility] Self Insurance Fund *INVALID State Self Insurance [id number] N/A [facility]BS [id number] N/A [facility] [id number] N/A History of Encounters Visit Date Visit Type Provider 12/21/2016 Procedures Julio Duenas DO 07/26/2015 Office visit Domi Shields APRN 03/04/2014 Hospital Julio Duenas DO 02/05/2014 Office visit Julio Duenas DO 05/28/2013 Office visit Caro Dale APRN 05/21/2013 Office visit Caro Dale APRN
--- OUTSIDE RECORDS SUMMARY | 2018-01-06 23:48 | XMS REPORT ---
Author Author Lisbeth Diehl Organization [facility] Address [address] [place], [place] [id number] Care Team Providers Care Business Center Attendant Name Role Phone Lisbeth Diehl PCP Unavailable [...] HC BMI BSA BMI Percentile O2 Sat(%) 05/08/2017 11:02:00 AM 118 mmHg 76 mmHg 72 bpm 18 rpm 125 lbs 69 in 18.46 kg/m2 1.66 m2 98 % 04/02/2017 11:17:00 AM 135 lbs 69.5 in 19.65 kg/m 1.7328 m 02/26/2017 9:57:00 AM 107 mmHg 66 mmHg [...] 07/26/2015 12:00 AM SPECIMEN HANDLING OFFICE-LAB Reviewed 05/08/2017 2:29 PM URINALYSIS AUTO W/O SCOPE Reviewed 05/28/2013 12:00 AM X-RAY EXAM KNEE 4 OR MORE Reviewed Results Summary Date and Description Results 05/08/2017 2:29 PM Clarity Ur HIGH COLOURED Color Ur ------- Glucose Ur-sCnc - VE Bilirub Ur Ql Strip -VE Ketones Ur Ql Strip -VE Sp Gr Ur Qn 1015 Hgb Ur Ql Strip -VE pH Ur-LsCnc 6.0 Prot Ur Ql Strip -VE Urobilinogen Ur-mCnc -VE Nitrite Ur Ql Strip -VE WBC Est Ur Ql Strip -VE History Of Immunizations Not available. History of [...] Retention of urine Apr 08 2017 12:46PM Retention of urine Improving May 08 2017 11:05AM Payers Insurance Name Company Name Plan Name Plan Number Policy Number Policy Group Number [facility] Date [id number] Self Insurance Fund *INVALID State Self Insurance [id number] N/A [id number]A [facility] [id number] N/A History of Encounters Visit Date Visit Type Provider 05/08/2017 Office visit Lisbeth Diehl MD 04/02/2017 Office visit Lisbeth Diehl MD 02/26/2017 Surgery Julio Duenas DO 02/26/2017 Office visit Julio Duenas DO 12/21/2016 Procedures Julio Duenas DO 07/26/2015 Office visit Domi Shields APRN 03/04/2014 Hospital Julio Duenas DO 02/05/2014 Office visit Julio Duenas DO 05/28/2013 Office visit Caro Dale APRN 05/21/2013 Office visit Caro Dale APRN
[2018-01-06 23:50] VITALS: BP 112/75
--- OUTSIDE RECORDS SUMMARY | 2018-01-06 23:50 | XMS REPORT | Continuity of Care Document ---
Author Author [facility] Organization [facility] Address Unknown Phone Unavailable Allergies Active Description Code Type Severity Reaction Onset Reported/Identified Relationship to Patient Clinical Status Yes BACTRIM [id number] BRANDNAME N/A N/A Yes No Known Drug Allergies [id number] Drug Allergy Unknown N/A 04/06/2008 Yes No Known Drug Allergies [id number] Drug Allergy Unknown N/A 06/27/2016 Yes mannitol [id number] Drug Allergy Unknown N/A 04/11/2017 Yes water for injection,sterile [id number] Drug Allergy Unknown N/A 2016 Yes zoledronic acid [id number] Drug Allergy Unknown N/A 04/11/2017 Medications There is no data. Problems Date Dx Coded Attending Type Code Diagnosis Diagnosed By 07/11/2016 PALMER RICE MD, Ot C50.919 MALIGNANT NEOPLASM OF UNSP SITE OF UNSPE 07/11/2016 PALMER RICE MD, Ot C79.51 SECONDARY MALIGNANT NEOPLASM OF BONE 07/11/2016 PALMER RICE MD, Ot Z17.0 ESTROGEN RECEPTOR POSITIVE STATUS [ER+] 08/02/2016 PALMER RICE MD, Ot C50.919 MALIGNANT NEOPLASM OF UNSP SITE OF UNSPE 08/02/2016 PALMER RICE MD, Ot C79.51 SECONDARY MALIGNANT NEOPLASM OF BONE 08/02/2016 PALMER RICE MD, Ot Z17.0 ESTROGEN RECEPTOR POSITIVE STATUS [ER+] 09/19/2016 PALMER RICE MD, Ot C50.312 MALIG NEOPLASM OF LOWER-INNER QUADRANT O 09/19/2016 PALMER RICE MD, Ot C79.51 SECONDARY MALIGNANT NEOPLASM OF BONE 09/19/2016 PALMER RICE MD, Ot Z17.0 ESTROGEN RECEPTOR POSITIVE STATUS [ER+] 09/19/2016 PALMER RICE MD, Ot Z51.11 ENCOUNTER FOR ANTINEOPLASTIC CHEMOTHERAP 09/20/2016 XUN MD, NEW-YAYR Ot C50.312 MALIG NEOPLASM OF LOWER-INNER QUADRANT O 09/20/2016 KRYSTAL LISA, PALMER Ot C79.51 SECONDARY MALIGNANT NEOPLASM OF BONE 09/20/2016 PLAMER RICE MD Ot Z17.0 ESTROGEN RECEPTOR POSITIVE STATUS [ER+] 09/20/2016 KRYSTAL LISA, PALMER Denney C50.312 MALIG NEOPLASM OF LOWER-INNER QUADRANT O 09/20/2016 PALMER RICE MD Ot C79.51 SECONDARY MALIGNANT NEOPLASM OF BONE 09/20/2016 PALMER RICE MD, Ot Z17.0 ESTROGEN RECEPTOR POSITIVE STATUS [ER+] 09/20/2016 PALMER RICE MD, Ot C50.312 MALIG NEOPLASM OF LOWER-INNER QUADRANT O 09/20/2016 PALMER RICE MD Ot C79.51 SECONDARY MALIGNANT NEOPLASM OF BONE 09/20/2016 PALMER RICE MD, Ot Z17.0 ESTROGEN RECEPTOR POSITIVE STATUS [ER+] 09/20/2016 PALMER RICE MD, Ot C50.312 MALIG NEOPLASM OF LOWER-INNER QUADRANT O 09/20/2016 PALMER RICE MD Ot C79.51 SECONDARY MALIGNANT NEOPLASM OF BONE 09/20/2016 PALMER RICE MD Ot Z17.0 ESTROGEN RECEPTOR POSITIVE STATUS [ER+] 09/21/2016 PALMER RICE MD, Ot C50.312 MALIG NEOPLASM OF LOWER-INNER QUADRANT O 09/21/2016 PALMER RICE MD Ot C79.51 SECONDARY MALIGNANT NEOPLASM OF BONE 09/21/2016 PALMER RICE MD Ot Z17.0 ESTROGEN RECEPTOR POSITIVE STATUS [ER+] 10/18/2016 PALMER RICE MD Ot C50.312 MALIG NEOPLASM OF LOWER-INNER QUADRANT O 10/18/2016 PALMER RICE MD Ot C79.51 SECONDARY MALIGNANT NEOPLASM OF BONE 10/18/2016 PALMER RICE MD Ot Z17.0 ESTROGEN RECEPTOR POSITIVE STATUS [ER+] 12/19/2016 PALMER RICE MD Ot C50.312 MALIG NEOPLASM OF LOWER-INNER QUADRANT O 12/19/2016 PALMER RICE MD Ot C79.51 SECONDARY MALIGNANT NEOPLASM OF BONE 12/19/2016 PALMER RICE MD Ot Z17.0 ESTROGEN RECEPTOR POSITIVE STATUS [ER+] 12/19/2016 PALMER RICE MD, Ot Z45.2 ENCOUNTER FOR ADJUSTMENT AND MANAGEMENT 12/21/2016 PALMER RICE MD, Ot C50.312 MALIG NEOPLASM OF LOWER-INNER QUADRANT O 12/21/2016 PALMER RICE MD, Ot C79.51 SECONDARY MALIGNANT NEOPLASM OF BONE 12/21/2016 PALMER RICE MD, Ot Z17.0 ESTROGEN RECEPTOR POSITIVE STATUS [ER+] 01/23/2017 PALMER RICE MD, Ot C50.312 MALIG NEOPLASM OF LOWER-INNER QUADRANT O 01/23/2017 PALMER RICE MD, Ot C79.51 SECONDARY MALIGNANT NEOPLASM OF BONE 01/23/2017 PALMER RICE MD, Ot D70.2 OTHER DRUG-INDUCED AGRANULOCYTOSIS 01/23/2017 PALMER RICE MD, Ot Z17.0 ESTROGEN RECEPTOR POSITIVE STATUS [ER+] 01/23/2017 PALMER RICE MD, Ot Z78.0 ASYMPTOMATIC MENOPAUSAL STATE 01/23/2017 PALMER RICE MD, Ot Z79.899 OTHER SENIOR CARE (CURRENT) DRUG THERAPY 02/14/2017 PALMER RICE MD, Ot C50.312 MALIG NEOPLASM OF LOWER-INNER QUADRANT O 02/14/2017 PALMER RICE MD, Ot C79.51 SECONDARY MALIGNANT NEOPLASM OF BONE 02/14/2017 PALMER RICE MD, Ot D70.2 OTHER DRUG-INDUCED AGRANULOCYTOSIS 02/14/2017 PALMER RICE MD, Ot Z17.0 ESTROGEN RECEPTOR POSITIVE STATUS [ER+] 02/14/2017 PALMER RICE MD, Ot Z78.0 ASYMPTOMATIC MENOPAUSAL STATE 02/14/2017 PALMER RICE MD, Ot Z79.899 OTHER CLUBHOUSE MANAGER (CURRENT) DRUG THERAPY 02/14/2017 PALMER RICE MD, Ot C50.312 MALIG NEOPLASM OF LOWER-INNER QUADRANT O 02/14/2017 PALMER RICE MD, Ot C79.51 SECONDARY MALIGNANT NEOPLASM OF BONE 02/14/2017 PALMER RICE MD, Ot D70.2 OTHER DRUG-INDUCED AGRANULOCYTOSIS 02/14/2017 PALMER RICE MD, Ot Z17.0 ESTROGEN RECEPTOR POSITIVE STATUS [ER+] 02/14/2017 PALMER RICE MD, Ot Z78.0 ASYMPTOMATIC MENOPAUSAL STATE 02/14/2017 PALMER RICE MD Ot Z79.899 OTHER CLUBHOUSE MANAGER (CURRENT) DRUG THERAPY 02/18/2017 PALMER RICE MD Ot C50.312 MALIG NEOPLASM OF LOWER-INNER QUADRANT O 02/18/2017 PALMER RICE MD Ot C79.51 SECONDARY MALIGNANT NEOPLASM OF BONE 02/18/2017 PALMER RICE MD Ot D70.2 OTHER DRUG-INDUCED AGRANULOCYTOSIS 02/18/2017 PALMER RICE MD Ot Z17.0 ESTROGEN RECEPTOR POSITIVE STATUS [ER+] 02/18/2017 PALMER RICE MD Ot Z78.0 ASYMPTOMATIC MENOPAUSAL STATE 02/18/2017 PALMER RICE MD Ot Z79.899 OTHER CLUBHOUSE MANAGER (CURRENT) DRUG THERAPY 02/22/2017 PALMER RICE MD, Ot C50.312 MALIG NEOPLASM OF LOWER-INNER QUADRANT O 02/22/2017 PALMER RICE MD, Ot C79.51 SECONDARY MALIGNANT NEOPLASM OF BONE 02/22/2017 PALMER RICE MD Ot D70.2 OTHER DRUG-INDUCED AGRANULOCYTOSIS 02/22/2017 PALMER RICE MD Ot Z17.0 ESTROGEN RECEPTOR POSITIVE STATUS [ER+] 02/22/2017 PALMER RICE MD Ot Z78.0 ASYMPTOMATIC MENOPAUSAL STATE 02/22/2017 PALMER RICE MD Ot Z79.899 OTHER SENIOR CARE (CURRENT) DRUG THERAPY 02/27/2017 PALMER RICE MD, Ot C50.312 MALIG NEOPLASM OF LOWER-INNER QUADRANT O 02/27/2017 PALMER RICE MD Ot C79.51 SECONDARY MALIGNANT NEOPLASM OF BONE 02/27/2017 PALMER RICE MD Ot D70.2 OTHER DRUG-INDUCED AGRANULOCYTOSIS 02/27/2017 PALMER RICE MD Ot Z17.0 ESTROGEN RECEPTOR POSITIVE STATUS [ER+] 02/27/2017 PALMER RICE MD Ot Z78.0 ASYMPTOMATIC MENOPAUSAL STATE 02/27/2017 PALMER RICE MD Ot Z79.899 OTHER CLUBHOUSE MANAGER (CURRENT) DRUG THERAPY 03/02/2017 PALMER RICE MD Ot C50.312 MALIG NEOPLASM OF LOWER-INNER QUADRANT O 03/02/2017 PALMER RICE MD Ot C79.51 SECONDARY MALIGNANT NEOPLASM OF BONE 03/02/2017 PALMER RICE MD Ot Z17.0 ESTROGEN RECEPTOR POSITIVE STATUS [ER+] 03/02/2017 PALMER RICE MD, Ot Z51.0 ENCOUNTER FOR ANTINEOPLASTIC RADIATION T 03/02/2017 PALMER RICE MD Ot Z51.11 ENCOUNTER FOR ANTINEOPLASTIC CHEMOTHERAP 03/02/2017 PALMER RICE MD Ot Z78.0 ASYMPTOMATIC MENOPAUSAL STATE 03/02/2017 PALMER RICE MD, Ot Z79.899 OTHER CLUBHOUSE MANAGER (CURRENT) DRUG THERAPY 03/07/2017 PALMER RICE MD, Ot C50.312 MALIG NEOPLASM OF LOWER-INNER QUADRANT O 03/07/2017 PALMER RICE MD, Ot C79.51 SECONDARY MALIGNANT NEOPLASM OF BONE 03/07/2017 PALMER RICE MD, Ot Z17.0 ESTROGEN RECEPTOR POSITIVE STATUS [ER+] 03/07/2017 PALMER RICE MD, Ot Z51.0 ENCOUNTER FOR ANTINEOPLASTIC RADIATION T 03/07/2017 PALMER RICE MD, Ot Z51.11 ENCOUNTER FOR ANTINEOPLASTIC CHEMOTHERAP 03/07/2017 PALMER IRCE MD, Ot Z78.0 ASYMPTOMATIC MENOPAUSAL STATE 03/07/2017 PALMER RICE MD, Ot Z79.899 OTHER CLUBHOUSE MANAGER (CURRENT) DRUG THERAPY 03/08/2017 PALMER RICE MD, Ot C50.312 MALIG NEOPLASM OF LOWER-INNER QUADRANT O 03/08/2017 PALMER RICE MD, Ot C79.51 SECONDARY MALIGNANT NEOPLASM OF BONE 03/08/2017 PALMER RICE MD, Ot Z17.0 ESTROGEN RECEPTOR POSITIVE STATUS [ER+] 03/08/2017 PALMER RICE MD, Ot Z51.0 ENCOUNTER FOR ANTINEOPLASTIC RADIATION T 03/08/2017 PALMER RICE MD Ot Z51.11 ENCOUNTER FOR ANTINEOPLASTIC CHEMOTHERAP 03/08/2017 PALMER RICE MD Ot Z78.0 ASYMPTOMATIC MENOPAUSAL STATE 03/08/2017 PALMER RICE MD Ot Z79.899 OTHER CLUBHOUSE MANAGER (CURRENT) DRUG THERAPY 03/12/2017 PALMER RICE MD, Ot C50.312 MALIG NEOPLASM OF LOWER-INNER QUADRANT O 03/12/2017 PALMER RICE MD, Ot C79.51 SECONDARY MALIGNANT NEOPLASM OF BONE 03/12/2017 PALMER RICE MD Ot Z17.0 ESTROGEN RECEPTOR POSITIVE STATUS [ER+] 03/12/2017 PALMER RICE MD Ot Z51.0 ENCOUNTER FOR ANTINEOPLASTIC RADIATION T 03/12/2017 PALMER RICE MD Ot Z51.11 ENCOUNTER FOR ANTINEOPLASTIC CHEMOTHERAP 03/12/2017 PALMER RICE MD Ot Z78.0 ASYMPTOMATIC MENOPAUSAL STATE 03/12/2017 PALMER RICE MD Ot Z79.899 OTHER SENIOR CARE (CURRENT) DRUG THERAPY 03/12/2017 PALMER RICE MD Ot C50.312 MALIG NEOPLASM OF LOWER-INNER QUADRANT O 03/12/2017 PALMER RICE MD, Ot C79.51 SECONDARY MALIGNANT NEOPLASM OF BONE 03/12/2017 PALMER RICE MD, Ot Z17.0 ESTROGEN RECEPTOR POSITIVE STATUS [ER+] 03/12/2017 PALMER RICE MD, Ot Z51.0 ENCOUNTER FOR ANTINEOPLASTIC RADIATION T 03/12/2017 PALMER RICE MD Ot Z51.11 ENCOUNTER FOR ANTINEOPLASTIC CHEMOTHERAP 03/12/2017 PALMER RICE MD Ot Z78.0 ASYMPTOMATIC MENOPAUSAL STATE 03/12/2017 PALMER RICE MD Ot Z79.899 OTHER CLUBHOUSE MANAGER (CURRENT) DRUG THERAPY 03/13/2017 PALMER RICE MD, Ot C50.312 MALIG NEOPLASM OF LOWER-INNER QUADRANT O 03/13/2017 PALMER RICE MD Ot C79.51 SECONDARY MALIGNANT NEOPLASM OF BONE 03/13/2017 PALMER RICE MD, Ot Z17.0 ESTROGEN RECEPTOR POSITIVE STATUS [ER+] 03/13/2017 PALMER RICE MD Ot Z51.0 ENCOUNTER FOR ANTINEOPLASTIC RADIATION T 03/13/2017 PALMER RICE MD Ot Z51.11 ENCOUNTER FOR ANTINEOPLASTIC CHEMOTHERAP 03/13/2017 PALMER RICE MD Ot Z78.0 ASYMPTOMATIC MENOPAUSAL STATE 03/13/2017 PALMER RICE MD Ot Z79.899 OTHER CLUBHOUSE MANAGER (CURRENT) DRUG THERAPY 03/18/2017 PALMER RICE MD Ot C50.312 MALIG NEOPLASM OF LOWER-INNER QUADRANT O 03/18/2017 PALMER RICE MD Ot C79.51 SECONDARY MALIGNANT NEOPLASM OF BONE 03/18/2017 PALMER RICE MD, Ot Z17.0 ESTROGEN RECEPTOR POSITIVE STATUS [ER+] 03/18/2017 PALMER RICE MD, Ot Z51.0 ENCOUNTER FOR ANTINEOPLASTIC RADIATION T 03/18/2017 PALMER RICE MD, Ot Z51.11 ENCOUNTER FOR ANTINEOPLASTIC CHEMOTHERAP 03/18/2017 PALMER RICE MD, Ot Z78.0 ASYMPTOMATIC MENOPAUSAL STATE 03/18/2017 PALMER RICE MD, Ot Z79.899 OTHER SENIOR CARE (CURRENT) DRUG THERAPY 03/18/2017 THIERNO LEVINE MD T Ot R30.0 DYSURIA 03/18/2017 THIERNO LEVINE MD T Ot R33.9 RETENTION OF URINE, UNSPECIFIED 03/20/2017 PALMER RICE MD, Ot C50.312 MALIG NEOPLASM OF LOWER-INNER QUADRANT O 03/20/2017 PALMER RICE MD, Ot C79.51 SECONDARY MALIGNANT NEOPLASM OF BONE 03/20/2017 PALMER RICE MD, Ot Z17.0 ESTROGEN RECEPTOR POSITIVE STATUS [ER+] 03/20/2017 PALMER RICE MD, Ot Z51.0 ENCOUNTER FOR ANTINEOPLASTIC RADIATION T 03/20/2017 PALMER RICE MD, Ot Z51.11 ENCOUNTER FOR ANTINEOPLASTIC CHEMOTHERAP 03/20/2017 PALMER RICE MD, Ot Z78.0 ASYMPTOMATIC MENOPAUSAL STATE 03/20/2017 PALMER RICE MD, Ot Z79.899 OTHER CLUBHOUSE MANAGER (CURRENT) DRUG THERAPY 03/29/2017 HUNTER BRAND MD, Ot A04.72 ENTEROCOLITIS D/T CLOSTRIDIUM DIFFICILE, 03/29/2017 HUNTER BRAND MD, Ot B96.20 UNSP ESCHERICHIA COLI THE CAUSE OF DI 03/29/2017 HUNTER BRAND MD, Ot C78.7 SECONDARY MALIG NEOPLASM OF LIVER AND IN 03/29/2017 HUNTER BRAND MD, Ot C79.51 SECONDARY MALIGNANT NEOPLASM OF BONE 03/29/2017 HUNTER BRAND MD, Ot D53.9 NUTRITIONAL ANEMIA, UNSPECIFIED 03/29/2017 HUNTER BRAND MD Ot E86.0 DEHYDRATION 03/29/2017 HUNTER BRAND MD, Ot I10 ESSENTIAL (PRIMARY) HYPERTENSION 03/29/2017 HUNTER BRAND MD, Ot K52.0 GASTROENTERITIS AND COLITIS DUE TO RADIA 03/29/2017 HUNTER BRAND MD, Ot N13.9 OBSTRUCTIVE AND REFLUX UROPATHY, UNSPECI 03/29/2017 HUNTER BRAND MD, Ot N39.0 URINARY TRACT INFECTION, SITE NOT SPECIF 03/29/2017 HUNTER BRAND MD, Ot R33.9 RETENTION OF URINE, UNSPECIFIED 03/29/2017 HUNTER BRAND MD, Ot Z85.3 PERSONAL HISTORY OF MALIGNANT NEOPLASM O 03/29/2017 HUNTER BRAND MD, Ot Z90.12 ACQUIRED ABSENCE OF LEFT BREAST AND NIPP 04/11/2017 PALMER RICE MD, Ot C50.312 MALIG NEOPLASM OF LOWER-INNER QUADRANT O 04/11/2017 PALMER RICE MD, Ot C79.51 SECONDARY MALIGNANT NEOPLASM OF BONE 04/11/2017 PALMER RICE MD, Ot Z17.0 ESTROGEN RECEPTOR POSITIVE STATUS [ER+] 04/11/2017 PALMER RICE MD, Ot Z51.0 ENCOUNTER FOR ANTINEOPLASTIC RADIATION T 04/11/2017 PALMER RICE MD Ot Z51.11 ENCOUNTER FOR ANTINEOPLASTIC CHEMOTHERAP 04/11/2017 PALMER RICE MD, Ot Z78.0 ASYMPTOMATIC MENOPAUSAL STATE 04/11/2017 PALMER RICE MD, Ot Z79.899 OTHER CLUBHOUSE MANAGER (CURRENT) DRUG THERAPY 04/11/2017 PALMER RICE MD, Ot C50.312 MALIG NEOPLASM OF LOWER-INNER QUADRANT O 04/11/2017 PALMER RICE MD, Ot C79.51 SECONDARY MALIGNANT NEOPLASM OF BONE 04/11/2017 PALMER RICE MD, Ot Z17.0 ESTROGEN RECEPTOR POSITIVE STATUS [ER+] 04/11/2017 PALMER RICE MD, Ot Z51.0 ENCOUNTER FOR ANTINEOPLASTIC RADIATION T 04/11/2017 PALMER RICE MD, Ot Z51.11 ENCOUNTER FOR ANTINEOPLASTIC CHEMOTHERAP 04/11/2017 PALMER RICE MD, Ot Z78.0 ASYMPTOMATIC MENOPAUSAL STATE 04/11/2017 PALMER RICE MD, Ot Z79.899 OTHER SENIOR CARE (CURRENT) DRUG THERAPY 04/11/2017 MARIA C RIOJAS APRN Ot C50.912 MALIGNANT NEOPLASM OF UNSPECIFIED SITE O 04/11/2017 MARIA C RIOJAS APRN Ot C79.31 SECONDARY MALIGNANT NEOPLASM OF BRAIN 04/11/2017 MARIA C RIOJAS APRN Ot K21.9 GASTRO-ESOPHAGEAL REFLUX DISEASE WITHOUT 04/11/2017 MARIA C RIOJAS APRN Ot N39.0 URINARY TRACT INFECTION, SITE NOT SPECIF 04/11/2017 MARIA C RIOJAS APRN Ot R19.7 DIARRHEA, UNSPECIFIED 04/11/2017 MARIA C RIOJAS APRN Ot Z87.891 PERSONAL HISTORY OF NICOTINE DEPENDENCE 04/11/2017 MARIA C RIOJAS APRN Ot Z90.49 ACQUIRED ABSENCE OF OTHER SPECIFIED PART 04/11/2017 PALMER RICE MD Ot C50.312 MALIG NEOPLASM OF LOWER-INNER QUADRANT O 04/11/2017 PALMER RICE MD, Ot C79.51 SECONDARY MALIGNANT NEOPLASM OF BONE 04/11/2017 PALMER RICE MD, Ot Z17.0 ESTROGEN RECEPTOR POSITIVE STATUS [ER+] 04/11/2017 PALMER RICE MD, Ot Z51.0 ENCOUNTER FOR ANTINEOPLASTIC RADIATION T 04/11/2017 PALMER RICE MD, Ot Z51.11 ENCOUNTER FOR ANTINEOPLASTIC CHEMOTHERAP 04/11/2017 PALMER RICE MD Ot Z78.0 ASYMPTOMATIC MENOPAUSAL STATE 04/11/2017 PALMER RICE MD, Ot Z79.899 OTHER CLUBHOUSE MANAGER (CURRENT) DRUG THERAPY 04/16/2017 MARIA C RIOJAS APRN Ot C50.919 MALIGNANT NEOPLASM OF UNSP SITE OF UNSPE 04/16/2017 MARIA C RIOJAS APRN Ot C79.31 SECONDARY MALIGNANT NEOPLASM OF BRAIN 04/16/2017 MARIA C RIOJAS APRN Ot K21.9 GASTRO-ESOPHAGEAL REFLUX DISEASE WITHOUT 04/16/2017 MARIA C RIOJAS APRN Ot N39.0 URINARY TRACT INFECTION, SITE NOT SPECIF 04/16/2017 MARIA C RIOJAS APRN Ot R19.7 DIARRHEA, UNSPECIFIED 04/16/2017 MARIA C RIOJAS APRN Ot Z87.891 PERSONAL HISTORY OF NICOTINE DEPENDENCE 04/16/2017 MARIA C RIOJAS APRN Ot Z90.49 ACQUIRED ABSENCE OF OTHER SPECIFIED PART 04/18/2017 GABBIE BERGERON MD Ot A04.71 ENTEROCOLITIS DUE TO CLOSTRIDIUM DIFFICI 04/18/2017 RUBIO MD, GABBIE M Ot C50.312 MALIG NEOPLASM OF LOWER-INNER QUADRANT O 04/18/2017 GABBIE BERGERON MD, Ot C79.31 SECONDARY MALIGNANT NEOPLASM OF BRAIN 04/18/2017 GABBIE BERGERON MD, Ot D61.810 ANTINEOPLASTIC CHEMOTHERAPY INDUCED PANC 04/18/2017 GABBIE BERGERON MD, Ot D70.1 AGRANULOCYTOSIS SECONDARY TO CANCER CHEM 04/18/2017 GABBIE BERGERON MD, Ot E87.6 HYPOKALEMIA 04/18/2017 GABBIE BERGERON MD, Ot I10 ESSENTIAL (PRIMARY) HYPERTENSION 04/18/2017 GABBIE BERGERON MD, Ot K21.9 GASTRO-ESOPHAGEAL REFLUX DISEASE WITHOUT 04/18/2017 GABBIE BERGERON MD, Ot R73.9 HYPERGLYCEMIA, UNSPECIFIED 04/18/2017 GABBIE BERGERON MD, Ot Z87.891 PERSONAL HISTORY OF NICOTINE DEPENDENCE 04/18/2017 GABBIE BERGERON MD, Ot Z92.21 PERSONAL HISTORY OF ANTINEOPLASTIC CHEMO 04/18/2017 GABBIE BERGERON MD, Ot Z92.3 PERSONAL HISTORY OF IRRADIATION 05/06/2017 PALMER RICE MD, Ot C50.312 MALIG NEOPLASM OF LOWER-INNER QUADRANT O 05/06/2017 PALMER RICE MD, Ot C79.51 SECONDARY MALIGNANT NEOPLASM OF BONE 05/06/2017 PALMER RICE MD, Ot Z17.0 ESTROGEN RECEPTOR POSITIVE STATUS [ER+] 05/06/2017 PALMER RICE MD, Ot Z51.0 ENCOUNTER FOR ANTINEOPLASTIC RADIATION T 05/06/2017 PALMER RICE MD, Ot Z51.11 ENCOUNTER FOR ANTINEOPLASTIC CHEMOTHERAP 05/06/2017 PALMER RICE MD, Ot Z78.0 ASYMPTOMATIC MENOPAUSAL STATE 05/06/2017 PALMER RICE MD, Ot Z79.899 OTHER CLUBHOUSE MANAGER (CURRENT) DRUG THERAPY 05/08/2017 PALMER RICE MD, Ot C50.312 MALIG NEOPLASM OF LOWER-INNER QUADRANT O 05/08/2017 PALMER RICE MD, Ot C79.51 SECONDARY MALIGNANT NEOPLASM OF BONE 05/08/2017 PALMER RICE MD, Ot K76.89 OTHER SPECIFIED DISEASES OF LIVER 06/03/2017 PALMER RICE MD, Ot C50.312 MALIG NEOPLASM OF LOWER-INNER QUADRANT O 06/03/2017 PALMER RICE MD Ot C79.51 SECONDARY MALIGNANT NEOPLASM OF BONE 06/03/2017 PALMER RICE MD Ot Z17.0 ESTROGEN RECEPTOR POSITIVE STATUS [ER+] 06/03/2017 PALMER RICE MD Ot Z51.0 ENCOUNTER FOR ANTINEOPLASTIC RADIATION T 06/03/2017 PALMER RICE MD Ot Z51.11 ENCOUNTER FOR ANTINEOPLASTIC CHEMOTHERAP 06/03/2017 PALMER RICE MD Ot Z78.0 ASYMPTOMATIC MENOPAUSAL STATE 06/03/2017 PALMER RICE MD Ot Z79.899 OTHER SENIOR CARE (CURRENT) DRUG THERAPY 06/20/2017 PALMER RICE MD, Ot C50.312 MALIG NEOPLASM OF LOWER-INNER QUADRANT O 06/20/2017 PALMER RICE MD, Ot C79.51 SECONDARY MALIGNANT NEOPLASM OF BONE 06/20/2017 PALMER RICE MD, Ot Z17.0 ESTROGEN RECEPTOR POSITIVE STATUS [ER+] 06/20/2017 PALMER RICE MD, Ot Z51.0 ENCOUNTER FOR ANTINEOPLASTIC RADIATION T 06/20/2017 PALMER RICE MD Ot Z51.11 ENCOUNTER FOR ANTINEOPLASTIC CHEMOTHERAP 06/20/2017 PALMER RICE MD Ot Z78.0 ASYMPTOMATIC MENOPAUSAL STATE 06/20/2017 PALMER RICE MD, Ot Z79.899 OTHER SENIOR CARE (CURRENT) DRUG THERAPY 07/10/2017 PALMER RICE MD Ot C50.312 MALIG NEOPLASM OF LOWER-INNER QUADRANT O 07/10/2017 PALMER RICE MD Ot C79.51 SECONDARY MALIGNANT NEOPLASM OF BONE 07/10/2017 PALMER RICE MD Ot Z17.0 ESTROGEN RECEPTOR POSITIVE STATUS [ER+] 07/10/2017 PALMER RICE MD Ot Z51.0 ENCOUNTER FOR ANTINEOPLASTIC RADIATION T 07/10/2017 PALMER RICE MD Ot Z51.11 ENCOUNTER FOR ANTINEOPLASTIC CHEMOTHERAP 07/10/2017 PALMER RICE MD Ot Z78.0 ASYMPTOMATIC MENOPAUSAL STATE 07/10/2017 PALMER RICE MD Ot Z79.899 OTHER SENIOR CARE (CURRENT) DRUG THERAPY 07/12/2017 PALMER RICE MD, Ot C50.312 MALIG NEOPLASM OF LOWER-INNER QUADRANT O 07/12/2017 PALMER RICE MD Ot C79.51 SECONDARY MALIGNANT NEOPLASM OF BONE 07/12/2017 PALMER RICE MD, Ot Z17.0 ESTROGEN RECEPTOR POSITIVE STATUS [ER+] 07/12/2017 PALMER RICE MD, Ot Z51.11 ENCOUNTER FOR ANTINEOPLASTIC CHEMOTHERAP 07/12/2017 PALMER RICE MD, Ot Z78.0 ASYMPTOMATIC MENOPAUSAL STATE 07/12/2017 PALMER RICE MD, Ot Z79.899 OTHER SENIOR CARE (CURRENT) DRUG THERAPY 07/24/2017 PALMER RICE MD, Ot C50.312 MALIG NEOPLASM OF LOWER-INNER QUADRANT O 07/24/2017 PALMER RICE MD, Ot C79.51 SECONDARY MALIGNANT NEOPLASM OF BONE 07/24/2017 PALMER RICE MD, Ot Z17.0 ESTROGEN RECEPTOR POSITIVE STATUS [ER+] 07/24/2017 PALMER RICE MD, Ot Z51.11 ENCOUNTER FOR ANTINEOPLASTIC CHEMOTHERAP 07/24/2017 PALMER RICE MD, Ot Z78.0 ASYMPTOMATIC MENOPAUSAL STATE 07/24/2017 PALMER RICE MD, Ot Z79.899 OTHER SENIOR CARE (CURRENT) DRUG THERAPY 08/01/2017 PALMER RICE MD Ot C50.312 MALIG NEOPLASM OF LOWER-INNER QUADRANT O 08/01/2017 PALMER RICE MD, Ot C79.51 SECONDARY MALIGNANT NEOPLASM OF BONE 08/01/2017 PALMER RICE MD, Ot Z17.0 ESTROGEN RECEPTOR POSITIVE STATUS [ER+] 08/01/2017 PALMER RICE MD, Ot Z51.11 ENCOUNTER FOR ANTINEOPLASTIC CHEMOTHERAP 08/01/2017 PALMER RICE MD, Ot Z78.0 ASYMPTOMATIC MENOPAUSAL STATE 08/01/2017 PALMER RICE MD, Ot Z79.899 OTHER SENIOR CARE (CURRENT) DRUG THERAPY 08/16/2017 PALMER RICE MD, Ot C50.312 MALIG NEOPLASM OF LOWER-INNER QUADRANT O 08/16/2017 PALMER RICE MD, Ot C79.51 SECONDARY MALIGNANT NEOPLASM OF BONE 08/16/2017 PALMER RICE MD Ot J91.8 PLEURAL EFFUSION IN OTHER CONDITIONS CLA 08/16/2017 PALMER RICE MD, Ot K76.9 LIVER DISEASE, UNSPECIFIED 08/16/2017 PALMER RICE MD Ot Z78.0 ASYMPTOMATIC MENOPAUSAL STATE 08/28/2017 PALMER RICE MD Ot C50.312 MALIG NEOPLASM OF LOWER-INNER QUADRANT O 08/28/2017 PALMER RICE MD Ot C79.51 SECONDARY MALIGNANT NEOPLASM OF BONE 08/28/2017 PALMER RICE MD Ot J91.8 PLEURAL EFFUSION IN OTHER CONDITIONS CLA 08/28/2017 PALMER RICE MD Ot K76.9 LIVER DISEASE, UNSPECIFIED 08/28/2017 PALMER RICE MD Ot Z78.0 ASYMPTOMATIC MENOPAUSAL STATE 09/18/2017 PALMER RICE MD, Ot C50.312 MALIG NEOPLASM OF LOWER-INNER QUADRANT O 09/18/2017 PALMER RICE MD, Ot C79.51 SECONDARY MALIGNANT NEOPLASM OF BONE 09/18/2017 PALMER RICE MD, Ot Z17.0 ESTROGEN RECEPTOR POSITIVE STATUS [ER+] 09/18/2017 PALMER RICE MD, Ot Z51.11 ENCOUNTER FOR ANTINEOPLASTIC CHEMOTHERAP 09/18/2017 PALMER RICE MD Ot Z78.0 ASYMPTOMATIC MENOPAUSAL STATE 09/18/2017 PALMER RICE MD Ot Z79.899 OTHER SENIOR CARE (CURRENT) DRUG THERAPY 09/19/2017 PALMER RICE MD, Ot C50.312 MALIG NEOPLASM OF LOWER-INNER QUADRANT O 09/19/2017 PALMER RICE MD Ot C79.51 SECONDARY MALIGNANT NEOPLASM OF BONE 09/19/2017 PALMER RICE MD, Ot Z17.0 ESTROGEN RECEPTOR POSITIVE STATUS [ER+] 09/19/2017 PALMER RICE MD Ot Z51.11 ENCOUNTER FOR ANTINEOPLASTIC CHEMOTHERAP 09/19/2017 PALMER RICE MD Ot Z78.0 ASYMPTOMATIC MENOPAUSAL STATE 09/19/2017 PALMER RICE MD Ot Z79.899 OTHER SENIOR CARE (CURRENT) DRUG THERAPY 11/13/2017 PALMER RICE MD, Ot C50.312 MALIG NEOPLASM OF LOWER-INNER QUADRANT O 11/13/2017 PALMER RICE MD Ot C79.51 SECONDARY MALIGNANT NEOPLASM OF BONE 11/13/2017 PALMER RICE MD, Ot Z17.0 ESTROGEN RECEPTOR POSITIVE STATUS [ER+] 11/13/2017 PALMER RICE MD, Ot Z51.11 ENCOUNTER FOR ANTINEOPLASTIC CHEMOTHERAP 11/13/2017 PALMER RICE MD, Ot Z78.0 ASYMPTOMATIC MENOPAUSAL STATE 11/13/2017 PALMER RICE MD, Ot Z79.899 OTHER [employer]GER (CURRENT) DRUG THERAPY 11/20/2017 PALMER RICE MD, Ot C50.312 MALIG NEOPLASM OF LOWER-INNER QUADRANT O 11/20/2017 PALMER RICE MD, Ot C78.7 SECONDARY MALIG NEOPLASM OF LIVER AND IN 11/20/2017 PALMER RICE MD, Ot C79.51 SECONDARY MALIGNANT NEOPLASM OF BONE 11/20/2017 PALMER RICE MD, Ot J90 PLEURAL EFFUSION, NOT ELSEWHERE CLASSIFI 11/20/2017 PALMER RICE MD, Ot R59.0 LOCALIZED ENLARGED LYMPH NODES 11/20/2017 PALMER RICE MD Ot R91.8 OTHER NONSPECIFIC ABNORMAL FINDING OF [place] 11/27/2017 PALMER RICE MD, Ot C50.312 MALIG NEOPLASM OF LOWER-INNER QUADRANT O 11/27/2017 PALMER RICE MD, Ot C79.51 SECONDARY MALIGNANT NEOPLASM OF BONE 11/27/2017 PALMER RICE MD, Ot Z17.0 ESTROGEN RECEPTOR POSITIVE STATUS [ER+] 11/27/2017 APLMER RICE MD, Ot Z78.0 ASYMPTOMATIC MENOPAUSAL STATE 11/27/2017 PALMER RICE MD, Ot Z79.899 OTHER SENIOR CARE (CURRENT) DRUG THERAPY 12/03/2017 PALMER RICE MD, Ot C50.312 MALIG NEOPLASM OF LOWER-INNER QUADRANT O 12/03/2017 PALMER RICE MD, Ot C78.7 SECONDARY MALIG NEOPLASM OF LIVER AND IN 12/03/2017 PALMER RICE MD, Ot C79.51 SECONDARY MALIGNANT NEOPLASM OF BONE 12/03/2017 PALMER RICE MD Ot J90 PLEURAL EFFUSION, NOT ELSEWHERE CLASSIFI 12/03/2017 PALMER RICE MD, Ot R59.0 LOCALIZED ENLARGED LYMPH NODES 12/03/2017 PALMER RICE MD Ot R91.8 OTHER NONSPECIFIC ABNORMAL FINDING OF [place] Procedures There is no data. Results Test Result Range Complete urinalysis with reflex to culture - 03/18/17 13:00 Urine color determination OTHER NRG Urine clarity determination CLEAR NRG Urine pH measurement by test strip 7 5-9 Specific gravity of urine by test strip 1.010 1.016- 1.022 Urine protein assay by test strip, semi-quantitative NEGATIVE NEGATIVE Urine glucose detection by automated test strip NEGATIVE NEGATIVE Erythrocytes detection in urine sediment by light microscopy NEGATIVE NEGATIVE Urine ketones detection by automated test strip NEGATIVE NEGATIVE Urine nitrite detection by test strip POSITIVE NEGATIVE Urine total bilirubin detection by test strip 3+ NEGATIVE Urine urobilinogen measurement by automated test strip (mass/volume) 8 mg/dL NORMAL Urine leukocyte esterase detection by dipstick 1+ NEGATIVE Automated urine sediment erythrocyte count by microscopy (number/high power field) RARE NRG Automated urine sediment leukocyte count by microscopy (number/high power field ) NONE NRG Bacteria detection in urine sediment by light microscopy NEGATIVE NRG Crystals detection in urine sediment by light microscopy NONE NRG Casts detection in urine sediment by light microscopy NONE NRG Mucus detection in urine sediment by light microscopy NEGATIVE NRG Complete urinalysis with reflex to culture YES NRG Bacterial urine culture - 03/18/17 13:00 Bacterial urine culture NG NRG Complete blood count (CBC) with automated white blood cell (WBC) differential - 03/25/17 17:30 Blood leukocytes automated count (number/volume) 4.0 10*3/uL 4.3-11.0 Blood erythrocytes automated count (number/volume) 3.45 10*6/uL 4.35-5.85 Venous blood hemoglobin measurement (mass/volume) 12.0 g/dL 11.5-16.0 Blood hematocrit (volume fraction) 36 % 35-52 Automated erythrocyte mean corpuscular volume 104 [foz_us] 80-99 Automated erythrocyte mean corpuscular hemoglobin (mass per erythrocyte) 35 pg 25-34 Automated erythrocyte mean corpuscular hemoglobin concentration measurement ( mass/volume) 34 g/dL 32-36 Automated erythrocyte distribution width ratio 12.9 % 10.0-14.5 Automated blood platelet count (count/volume) 164 10*3/uL 130-400 Automated blood platelet mean volume measurement 9.1 [foz_us] 7.4-10.4 Automated blood neutrophils/100 leukocytes 81 % 42-75 Automated blood lymphocytes/100 leukocytes 4 % 12-44 Blood monocytes/100 leukocytes 10 % 0-12 Automated blood eosinophils/100 leukocytes 5 % 0-10 Automated blood basophils/100 leukocytes 1 % 0-10 Blood neutrophils automated count (number/volume) 3.2 10*3 1.8-7.8 Blood lymphocytes automated count (number/volume) 0.2 10*3 1.0-4.0 Blood monocytes automated count (number/volume) 0.4 10*3 0.0-1.0 Automated eosinophil count 0.2 10*3/uL 0.0-0.3 Automated blood basophil count (count/volume) 0.0 10*3/uL 0.0-0.1 PT panel in platelet poor plasma by coagulation assay - 03/25/17 17:30 Prothrombin time (PT) in platelet poor plasma by coagulation assay 13.4 s 12.2-14.7 INR in platelet poor plasma or blood by coagulation assay 1.0 0.8-1.4 Activated partial thromboplastin time (aPTT) in platelet poor plasma bycoagulation assay - 03/25/17 17:30 Activated partial thromboplastin time (aPTT) in platelet poor plasma bycoagulation assay 28 s 24-35 Blood lactic acid measurement (moles/volume) - 03/25/17 17:30 Blood lactic acid measurement (moles/volume) 0.81 mmol/L 0.50-2.00 Comprehensive metabolic panel - 03/25/17 17:30 Serum or plasma sodium measurement (moles/volume) 133 mmol/L 135-145 Serum or plasma potassium measurement (moles/volume) 4.4 mmol/L 3.6-5.0 Serum or plasma chloride measurement (moles/volume) 103 mmol/L 98-107 Carbon dioxide 25 mmol/L 21-32 Serum or plasma anion gap determination (moles/volume) 5 mmol/L 5-14 Serum or plasma urea nitrogen measurement (mass/volume) 11 mg/dL 7-18 Serum or plasma creatinine measurement (mass/volume) 0.67 mg/dL 0.60-1.30 Serum or plasma urea nitrogen/creatinine mass ratio 16 NRG Serum or plasma creatinine measurement with calculation of estimated glomerular filtration rate > NRG Serum or plasma glucose measurement (mass/volume) 120 mg/dL 70-105 Serum or plasma calcium measurement (mass/volume) 7.9 mg/dL 8.5-10.1 Serum or plasma total bilirubin measurement (mass/volume) 0.8 mg/dL 0.1-1.0 Serum or plasma alkaline phosphatase measurement (enzymatic activity/volume) 46 U/L 40-136 Serum or plasma aspartate aminotransferase measurement (enzymatic activity/ volume) 16 U/L 5-34 Serum or plasma alanine aminotransferase measurement (enzymatic activity/volume ) 11 U/L 0-55 Serum or plasma protein measurement (mass/volume) 6.5 g/dL 6.4-8.2 Serum or plasma albumin measurement (mass/volume) 3.1 g/dL 3.2-4.5 Blood manual differential performed detection - 03/25/17 17:30 Blood monocytes/100 leukocytes 2 % NRG Manual blood segmented neutrophils/100 leukocytes 77 % NRG Blood band neutrophils/100 leukocytes 13 % NRG Manual blood lymphocytes/100 leukocytes 2 % NRG Manual eosinophils/100 leukocytes in nose 5 % NRG Manual blood basophils/100 leukocytes 1 % NRG Blood erythrocyte morphology finding identification NORMAL NRG Bacterial blood culture - 03/25/17 17:30 Bacterial blood culture NG NRG Bacterial blood culture - 03/25/17 18:15 Bacterial blood culture NG NRG Complete urinalysis with reflex to culture - 03/25/17 18:32 Urine color determination CARO NRG Urine clarity determination VERY CLOUDY NRG Urine pH measurement by test strip 6 5-9 Specific gravity of urine by test strip 1.020 1.016- 1.022 Urine protein assay by test strip, semi-quantitative 3+ NEGATIVE Urine glucose detection by automated test strip NEGATIVE NEGATIVE Erythrocytes detection in urine sediment by light microscopy 5+ NEGATIVE Urine ketones detection by automated test strip 3+ NEGATIVE Urine nitrite detection by test strip POSITIVE NEGATIVE Urine total bilirubin detection by test strip 2+ NEGATIVE Urine urobilinogen measurement by automated test strip (mass/volume) 4 mg/dL NORMAL Urine leukocyte esterase detection by dipstick 3+ NEGATIVE Automated urine sediment erythrocyte count by microscopy (number/high power field) [HPF] NRG Automated urine sediment leukocyte count by microscopy (number/high power field ) [HPF] NRG Bacteria detection in urine sediment by light microscopy MODERATE NRG Crystals detection in urine sediment by light microscopy NONE NRG Casts detection in urine sediment by light microscopy NONE NRG Mucus detection in urine sediment by light microscopy NEGATIVE NRG Complete urinalysis with reflex to culture YES NRG Bacterial urine culture - 03/25/17 18:32 Bacterial urine culture [id number] NRG COLONY COUNT >100,000/ML NRG FTX;REPORTABLE SENSITIVITY REPORTED 03/26 16:00 NRG FREE TEXT ENTRY 3 MIXED GRAM POSITIVE TIFFANIE [facility] Bacterial susceptibility panel - 03/25/17 18:32 Gentamicin susceptibility test by minimum inhibitory concentration < = NRG Trimethoprim/sulfamethoxazole susceptibility test by minimum inhibitoryconcentration <= NRG Ampicillin susceptibility test by minimum inhibitory concentration < = NRG Tobramycin susceptibility test by minimum inhibitory concentration < = NRG Cefazolin susceptibility test by minimum inhibitory concentration < = NRG Ceftriaxone susceptibility test by minimum inhibitory concentration <= NRG Ampicillin/sulbactam susceptibility test by minimum inhibitory concentration <= NRG Piperacillin/tazobactam susceptibility test by minimum inhibitory concentration <= NRG Ciprofloxacin susceptibility test by minimum inhibitory concentration <= NRG Meropenem susceptibility test by minimum inhibitory concentration < = NRG Nitrofurantoin susceptibility test by minimum inhibitory concentration <= NRG Aztreonam susceptibility test by minimum inhibitory concentration < = NRG Extended spectrum beta lactamase (ESBL) producing bacteria susceptibility test by minimum inhibitory concentration - [facility] Influenza virus A and B antigen detection - 03/25/17 19:50 FLU RESULT NEGATIVE FOR INFLUENZA A AND B ANTIGENS BY IA [facility] Comprehensive metabolic panel - 03/26/17 05:55 Serum or plasma sodium measurement (moles/volume) 135 mmol/L 135-145 Serum or plasma potassium measurement (moles/volume) 3.8 mmol/L 3.6-5.0 Serum or plasma chloride measurement (moles/volume) 109 mmol/L 98-107 Carbon dioxide 19 mmol/L 21-32 Serum or plasma anion gap determination (moles/volume) 7 mmol/L 5-14 Serum or plasma urea nitrogen measurement (mass/volume) 7 mg/dL 7-18 Serum or plasma creatinine measurement (mass/volume) 0.55 mg/dL 0.60-1.30 Serum or plasma urea nitrogen/creatinine mass ratio 13 NRG Serum or plasma creatinine measurement with calculation of estimated glomerular filtration rate > NRG Serum or plasma glucose measurement (mass/volume) 84 mg/dL 70-105 Serum or plasma calcium measurement (mass/volume) 6.6 mg/dL 8.5-10.1 Serum or plasma total bilirubin measurement (mass/volume) 0.6 mg/dL 0.1-1.0 Serum or plasma alkaline phosphatase measurement (enzymatic activity/volume) 35 U/L 40-136 Serum or plasma aspartate aminotransferase measurement (enzymatic activity/ volume) 10 U/L 5-34 Serum or plasma alanine aminotransferase measurement (enzymatic activity/volume ) 9 U/L 0-55 Serum or plasma protein measurement (mass/volume) 4.8 g/dL 6.4-8.2 Serum or plasma albumin measurement (mass/volume) 2.4 g/dL 3.2-4.5 Complete blood count (CBC) with automated white blood cell (WBC) differential - 03/26/17 05:55 Blood leukocytes automated count (number/volume) 3.2 10*3/uL 4.3-11.0 Blood erythrocytes automated count (number/volume) 2.55 10*6/uL 4.35-5.85 Venous blood hemoglobin measurement (mass/volume) 8.6 g/dL 11.5-16.0 Blood hematocrit (volume fraction) 27 % 35-52 Automated erythrocyte mean corpuscular volume 105 [foz_us] 80-99 Automated erythrocyte mean corpuscular hemoglobin (mass per erythrocyte) 34 pg 25-34 Automated erythrocyte mean corpuscular hemoglobin concentration measurement ( mass/volume) 32 g/dL 32-36 Automated erythrocyte distribution width ratio 12.8 % 10.0-14.5 Automated blood platelet count (count/volume) 132 10*3/uL 130-400 Automated blood platelet mean volume measurement 9.1 [foz_us] 7.4-10.4 Automated blood neutrophils/100 leukocytes 79 % 42-75 Automated blood lymphocytes/100 leukocytes 3 % 12-44 Blood monocytes/100 leukocytes 14 % 0-12 Automated blood eosinophils/100 leukocytes 4 % 0-10 Automated blood basophils/100 leukocytes 0 % 0-10 Blood neutrophils automated count (number/volume) 2.5 10*3 1.8-7.8 Blood lymphocytes automated count (number/volume) 0.1 10*3 1.0-4.0 Blood monocytes automated count (number/volume) 0.4 10*3 0.0-1.0 Automated eosinophil count 0.1 10*3/uL 0.0-0.3 Automated blood basophil count (count/volume) 0.0 10*3/uL 0.0-0.1 C DIFFICILE AG + TOXIN A/B. - 03/26/17 21:35 FREE TEXT ENTRY 2 POSITIVE FOR GDH ANTIGEN NRG FREE TEXT ENTRY 3 NEGATIVE FOR TOXINS A AND B NRG RESULTS INDETERMINANT; MOLECULAR TEST TO FOLLOW NRG Clostridium difficile detection - 03/26/17 21:35 Complete blood count (CBC) with automated white blood cell (WBC) differential - 03/27/17 06:00 Blood leukocytes automated count (number/volume) 4.0 10*3/uL 4.3-11.0 Blood erythrocytes automated count (number/volume) 2.63 10*6/uL 4.35-5.85 Venous blood hemoglobin measurement (mass/volume) 9.2 g/dL 11.5-16.0 Blood hematocrit (volume fraction) 27 % 35-52 Automated erythrocyte mean corpuscular volume 103 [foz_us] 80-99 Automated erythrocyte mean corpuscular hemoglobin (mass per erythrocyte) 35 pg 25-34 Automated erythrocyte mean corpuscular hemoglobin concentration measurement ( mass/volume) 34 g/dL 32-36 Automated erythrocyte distribution width ratio 12.7 % 10.0-14.5 Automated blood platelet count (count/volume) 149 10*3/uL 130-400 Automated blood platelet mean volume measurement 8.7 [foz_us] 7.4-10.4 Automated blood neutrophils/100 leukocytes 89 % 42-75 Automated blood lymphocytes/100 leukocytes 3 % 12-44 Blood monocytes/100 leukocytes 8 % 0-12 Automated blood eosinophils/100 leukocytes 0 % 0-10 Automated blood basophils/100 leukocytes 0 % 0-10 Blood neutrophils automated count (number/volume) 3.6 10*3 1.8-7.8 Blood lymphocytes automated count (number/volume) 0.1 10*3 1.0-4.0 Blood monocytes automated count (number/volume) 0.3 10*3 0.0-1.0 Automated eosinophil count 0.0 10*3/uL 0.0-0.3 Automated blood basophil count (count/volume) 0.0 10*3/uL 0.0-0.1 Whole blood basic metabolic panel - 03/27/17 06:00 Serum or plasma sodium measurement (moles/volume) 136 mmol/L 135-145 Serum or plasma potassium measurement (moles/volume) 4.0 mmol/L 3.6-5.0 Serum or plasma chloride measurement (moles/volume) 110 mmol/L 98-107 Carbon dioxide 20 mmol/L 21-32 Serum or plasma anion gap determination (moles/volume) 6 mmol/L 5-14 Serum or plasma urea nitrogen measurement (mass/volume) 7 mg/dL 7-18 Serum or plasma creatinine measurement (mass/volume) 0.55 mg/dL 0.60-1.30 Serum or plasma urea nitrogen/creatinine mass ratio 13 NRG Serum or plasma creatinine measurement with calculation of estimated glomerular filtration rate > NRG Serum or plasma glucose measurement (mass/volume) 121 mg/dL 70-105 Serum or plasma calcium measurement (mass/volume) 6.9 mg/dL 8.5-10.1 Stool occult blood screen - 03/27/17 13:10 Stool gastrointestinal hemoglobin detection POSITIVE NEGATIVE Complete blood count (CBC) with automated white blood cell (WBC) differential - 04/11/17 15:05 Blood leukocytes automated count (number/volume) 6.3 10*3/uL 4.3-11.0 Blood erythrocytes automated count (number/volume) 2.87 10*6/uL 4.35-5.85 Venous blood hemoglobin measurement (mass/volume) 9.9 g/dL 11.5-16.0 Blood hematocrit (volume fraction) 30 % 35-52 Automated erythrocyte mean corpuscular volume 106 [foz_us] 80-99 Automated erythrocyte mean corpuscular hemoglobin (mass per erythrocyte) 35 pg 25-34 Automated erythrocyte mean corpuscular hemoglobin concentration measurement ( mass/volume) 33 g/dL 32-36 Automated erythrocyte distribution width ratio 14.8 % 10.0-14.5 Automated blood platelet count (count/volume) 220 10*3/uL 130-400 Automated blood platelet mean volume measurement 8.8 [foz_us] 7.4-10.4 Automated blood neutrophils/100 leukocytes 88 % 42-75 Automated blood lymphocytes/100 leukocytes 4 % 12-44 Blood monocytes/100 leukocytes 6 % 0-12 Automated blood eosinophils/100 leukocytes 2 % 0-10 Automated blood basophils/100 leukocytes 0 % 0-10 Blood neutrophils automated count (number/volume) 5.6 10*3 1.8-7.8 Blood lymphocytes automated count (number/volume) 0.3 10*3 1.0-4.0 Blood monocytes automated count (number/volume) 0.4 10*3 0.0-1.0 Automated eosinophil count 0.1 10*3/uL 0.0-0.3 Automated blood basophil count (count/volume) 0.0 10*3/uL 0.0-0.1 Blood manual differential performed detection - 04/11/17 15:05 Blood monocytes/100 leukocytes 11 % NRG Manual blood segmented neutrophils/100 leukocytes 72 % NRG Blood band neutrophils/100 leukocytes 13 % NRG Manual blood lymphocytes/100 leukocytes 2 % NRG Manual eosinophils/100 leukocytes in nose 2 % NRG Blood anisocytosis detection by light microscopy SLIGHT NRG Blood macrocytes detection by light microscopy SLIGHT NRG Blood poikilocytosis detection by light microscopy SLIGHT NRG Comprehensive metabolic panel - 04/11/17 15:05 Serum or plasma sodium measurement (moles/volume) 134 mmol/L 135-145 Serum or plasma potassium measurement (moles/volume) 3.8 mmol/L 3.6-5.0 Serum or plasma chloride measurement (moles/volume) 104 mmol/L 98-107 Carbon dioxide 22 mmol/L 21-32 Serum or plasma anion gap determination (moles/volume) 8 mmol/L 5-14 Serum or plasma urea nitrogen measurement (mass/volume) 8 mg/dL 7-18 Serum or plasma creatinine measurement (mass/volume) 0.68 mg/dL 0.60-1.30 Serum or plasma urea nitrogen/creatinine mass ratio 12 NRG Serum or plasma creatinine measurement with calculation of estimated glomerular filtration rate > NRG Serum or plasma glucose measurement (mass/volume) 85 mg/dL 70-105 Serum or plasma calcium measurement (mass/volume) 8.6 mg/dL 8.5-10.1 Serum or plasma total bilirubin measurement (mass/volume) 0.6 mg/dL 0.1-1.0 Serum or plasma alkaline phosphatase measurement (enzymatic activity/volume) 46 U/L 40-136 Serum or plasma aspartate aminotransferase measurement (enzymatic activity/ volume) 16 U/L 5-34 Serum or plasma alanine aminotransferase measurement (enzymatic activity/volume ) 12 U/L 0-55 Serum or plasma protein measurement (mass/volume) 6.6 g/dL 6.4-8.2 Serum or plasma albumin measurement (mass/volume) 3.0 g/dL 3.2-4.5 Bacterial blood culture - 04/11/17 15:05 Bacterial blood culture NG NR C DIFFICILE AG + TOXIN A/B. - 04/11/17 15:15 CALL POSITIVES (F1 HELP) CALLED TO [facility] IN ER 04/11/17 16:30 BY Dereck SAMANO NRG SPECIAL CONTACT SPECIAL CONTACT PRECAUTIONS NEEDED NRG RESULTS POSITIVE FOR ANTIGEN AND TOXIN A/B NRG Stool bacteria identification by culture - 04/11/17 15:15 Blood lactic acid measurement (moles/volume) - 04/11/17 15:23 Blood lactic acid measurement (moles/volume) 1.32 mmol/L 0.50-2.00 Bacterial blood culture - 04/11/17 15:23 Bacterial blood culture NG NRG Complete urinalysis with reflex to culture - 04/11/17 15:28 Urine color determination YELLOW NRG Urine clarity determination CLEAR NRG Urine pH measurement by test strip 5 5-9 Specific gravity of urine by test strip 1.015 1.016- 1.022 Urine protein assay by test strip, semi-quantitative NEGATIVE NEGATIVE Urine glucose detection by automated test strip NEGATIVE NEGATIVE Erythrocytes detection in urine sediment by light microscopy NEGATIVE NEGATIVE Urine ketones detection by automated test strip NEGATIVE NEGATIVE Urine nitrite detection by test strip POSITIVE NEGATIVE Urine total bilirubin detection by test strip NEGATIVE NEGATIVE Urine urobilinogen measurement by automated test strip (mass/volume) NORMAL NORMAL Urine leukocyte esterase detection by dipstick NEGATIVE NEGATIVE Automated urine sediment erythrocyte count by microscopy (number/high power field) NONE NRG Automated urine sediment leukocyte count by microscopy (number/high power field ) [HPF] NRG Bacteria detection in urine sediment by light microscopy LARGE NRG Crystals detection in urine sediment by light microscopy NONE NRG Casts detection in urine sediment by light microscopy NONE NRG Mucus detection in urine sediment by light microscopy LARGE NRG Complete urinalysis with reflex to culture YES NRG Bacterial urine culture - 04/11/17 15:28 Bacterial urine culture [id number] NRG COLONY COUNT >100,000/ML NRG FTX;REPORTABLE SENSITIVITY REPORTED AT 1610, 04-12-17 NR Bacterial susceptibility panel - 04/11/17 15:28 Gentamicin susceptibility test by minimum inhibitory concentration < = NRG Trimethoprim/sulfamethoxazole susceptibility test by minimum inhibitoryconcentration S NRG Ampicillin susceptibility test by minimum inhibitory concentration 4 NRG Tobramycin susceptibility test by minimum inhibitory concentration < = NRG Cefazolin susceptibility test by minimum inhibitory concentration < = NRG Ceftriaxone susceptibility test by minimum inhibitory concentration <= NRG Ampicillin/sulbactam susceptibility test by minimum inhibitory concentration <= NRG Piperacillin/tazobactam susceptibility test by minimum inhibitory concentration <= NRG Ciprofloxacin susceptibility test by minimum inhibitory concentration <= NRG Meropenem susceptibility test by minimum inhibitory concentration < = NRG Nitrofurantoin susceptibility test by minimum inhibitory concentration <= NRG Aztreonam susceptibility test by minimum inhibitory concentration < = NRG Extended spectrum beta lactamase (ESBL) producing bacteria susceptibility test by minimum inhibitory concentration - NRG Complete blood count (CBC) with automated white blood cell (WBC) differential - 04/14/17 07:27 Blood leukocytes automated count (number/volume) 3.8 10*3/uL 4.3-11.0 Blood erythrocytes automated count (number/volume) 2.59 10*6/uL 4.35-5.85 Venous blood hemoglobin measurement (mass/volume) 8.7 g/dL 11.5-16.0 Blood hematocrit (volume fraction) 28 % 35-52 Automated erythrocyte mean corpuscular volume 107 [foz_us] 80-99 Automated erythrocyte mean corpuscular hemoglobin (mass per erythrocyte) 34 pg 25-34 Automated erythrocyte mean corpuscular hemoglobin concentration measurement ( mass/volume) 32 g/dL 32-36 Automated erythrocyte distribution width ratio 14.8 % 10.0-14.5 Automated blood platelet count (count/volume) 196 10*3/uL 130-400 Automated blood platelet mean volume measurement 8.6 [foz_us] 7.4-10.4 Automated blood neutrophils/100 leukocytes 71 % 42-75 Automated blood lymphocytes/100 leukocytes 8 % 12-44 Blood monocytes/100 leukocytes 18 % 0-12 Automated blood eosinophils/100 leukocytes 2 % 0-10 Automated blood basophils/100 leukocytes 0 % 0-10 Blood neutrophils automated count (number/volume) 2.7 10*3 1.8-7.8 Blood lymphocytes automated count (number/volume) 0.3 10*3 1.0-4.0 Blood monocytes automated count (number/volume) 0.7 10*3 0.0-1.0 Automated eosinophil count 0.1 10*3/uL 0.0-0.3 Automated blood basophil count (count/volume) 0.0 10*3/uL 0.0-0.1 Comprehensive metabolic panel - 04/14/17 07:27 Serum or plasma sodium measurement (moles/volume) 134 mmol/L 135-145 Serum or plasma potassium measurement (moles/volume) 3.5 mmol/L 3.6-5.0 Serum or plasma chloride measurement (moles/volume) 102 mmol/L 98-107 Carbon dioxide 18 mmol/L 21-32 Serum or plasma anion gap determination (moles/volume) 14 mmol/L 5-14 Serum or plasma urea nitrogen measurement (mass/volume) 6 mg/dL 7-18 Serum or plasma creatinine measurement (mass/volume) 0.64 mg/dL 0.60-1.30 Serum or plasma urea nitrogen/creatinine mass ratio 9 NRG Serum or plasma creatinine measurement with calculation of estimated glomerular filtration rate > NRG Serum or plasma glucose measurement (mass/volume) 54 mg/dL 70-105 Serum or plasma calcium measurement (mass/volume) 7.8 mg/dL 8.5-10.1 Serum or plasma total bilirubin measurement (mass/volume) 0.3 mg/dL 0.1-1.0 Serum or plasma alkaline phosphatase measurement (enzymatic activity/volume) 50 U/L 40-136 Serum or plasma aspartate aminotransferase measurement (enzymatic activity/ volume) 17 U/L 5-34 Serum or plasma alanine aminotransferase measurement (enzymatic activity/volume ) 10 U/L 0-55 Serum or plasma protein measurement (mass/volume) 6.1 g/dL 6.4-8.2 Serum or plasma albumin measurement (mass/volume) 2.6 g/dL 3.2-4.5 Complete urinalysis with reflex to culture - 04/14/17 08:35 Urine color determination YELLOW NRG Urine clarity determination CLEAR NRG Urine pH measurement by test strip 6 5-9 Specific gravity of urine by test strip 1.020 1.016- 1.022 Urine protein assay by test strip, semi-quantitative 1+ NEGATIVE Urine glucose detection by automated test strip NEGATIVE NEGATIVE Erythrocytes detection in urine sediment by light microscopy NEGATIVE NEGATIVE Urine ketones detection by automated test strip 4+ NEGATIVE Urine nitrite detection by test strip NEGATIVE NEGATIVE Urine total bilirubin detection by test strip NEGATIVE NEGATIVE Urine urobilinogen measurement by automated test strip (mass/volume) NORMAL NORMAL Urine leukocyte esterase detection by dipstick 1+ NEGATIVE Automated urine sediment erythrocyte count by microscopy (number/high power field) NONE NRG Automated urine sediment leukocyte count by microscopy (number/high power field ) RARE NRG Bacteria detection in urine sediment by light microscopy NEGATIVE NRG Squamous epithelial cells detection in urine sediment by light microscopy RARE NRG Crystals detection in urine sediment by light microscopy NONE NRG Casts detection in urine sediment by light microscopy NONE NRG Mucus detection in urine sediment by light microscopy NEGATIVE NRG Complete urinalysis with reflex to culture NO NRG Capillary blood glucose measurement by glucometer (mass/volume) - 04/14/17 09: 21 Capillary blood glucose measurement by glucometer (mass/volume) 96 mg/dL 70-110 Complete blood count (CBC) with automated white blood cell (WBC) differential - 04/15/17 06:35 Blood leukocytes automated count (number/volume) 2.4 10*3/uL 4.3-11.0 Blood erythrocytes automated count (number/volume) 2.30 10*6/uL 4.35-5.85 Venous blood hemoglobin measurement (mass/volume) 7.7 g/dL 11.5-16.0 Blood hematocrit (volume fraction) 25 % 35-52 Automated erythrocyte mean corpuscular volume 107 [foz_us] 80-99 Automated erythrocyte mean corpuscular hemoglobin (mass per erythrocyte) 34 pg 25-34 Automated erythrocyte mean corpuscular hemoglobin concentration measurement ( mass/volume) 31 g/dL 32-36 Automated erythrocyte distribution width ratio 14.9 % 10.0-14.5 Automated blood platelet count (count/volume) 173 10*3/uL 130-400 Automated blood platelet mean volume measurement 8.4 [foz_us] 7.4-10.4 Automated blood neutrophils/100 leukocytes 66 % 42-75 Automated blood lymphocytes/100 leukocytes 9 % 12-44 Blood monocytes/100 leukocytes 19 % 0-12 Automated blood eosinophils/100 leukocytes 5 % 0-10 Automated blood basophils/100 leukocytes 1 % 0-10 Blood neutrophils automated count (number/volume) 1.6 10*3 1.8-7.8 Blood lymphocytes automated count (number/volume) 0.2 10*3 1.0-4.0 Blood monocytes automated count (number/volume) 0.5 10*3 0.0-1.0 Automated eosinophil count 0.1 10*3/uL 0.0-0.3 Automated blood basophil count (count/volume) 0.0 10*3/uL 0.0-0.1 Whole blood basic metabolic panel - 04/15/17 06:35 Serum or plasma sodium measurement (moles/volume) 137 mmol/L 135-145 Serum or plasma potassium measurement (moles/volume) 3.2 mmol/L 3.6-5.0 Serum or plasma chloride measurement (moles/volume) 111 mmol/L 98-107 Carbon dioxide 22 mmol/L 21-32 Serum or plasma anion gap determination (moles/volume) 4 mmol/L 5-14 Serum or plasma urea nitrogen measurement (mass/volume) 2 mg/dL 7-18 Serum or plasma creatinine measurement (mass/volume) 0.57 mg/dL 0.60-1.30 Serum or plasma urea nitrogen/creatinine mass ratio 4 NRG Serum or plasma creatinine measurement with calculation of estimated glomerular filtration rate > NRG Serum or plasma glucose measurement (mass/volume) 153 mg/dL 70-105 Serum or plasma calcium measurement (mass/volume) 7.0 mg/dL 8.5-10.1 Magnesium - 04/15/17 06:35 Magnesium 1.6 mg/dL 1.8-2.4 RED CELLS LEUKO REDUCED AS1 - 04/17/17 13:00 RED CELLS LEUKO REDUCED AS1 TRANSFUSED 04/17/17 1431 NRG Blood type T Indirect antibody screen panel - 04/17/17 13:00 ABO+Rh group ON NRG Transfusion band number [id number] NRG Blood group antibody screen NEGATIVE NRG Complete blood count (CBC) with automated white blood cell (WBC) differential - 04/18/17 05:55 Blood leukocytes automated count (number/volume) 4.0 10*3/uL 4.3-11.0 Blood erythrocytes automated count (number/volume) 2.99 10*6/uL 4.35-5.85 Venous blood hemoglobin measurement (mass/volume) 9.9 g/dL 11.5-16.0 Blood hematocrit (volume fraction) 31 % 35-52 Automated erythrocyte mean corpuscular volume 102 [foz_us] 80-99 Automated erythrocyte mean corpuscular hemoglobin (mass per erythrocyte) 33 pg 25-34 Automated erythrocyte mean corpuscular hemoglobin concentration measurement ( mass/volume) 33 g/dL 32-36 Automated erythrocyte distribution width ratio 16.4 % 10.0-14.5 Automated blood platelet count (count/volume) 236 10*3/uL 130-400 Automated blood platelet mean volume measurement 9.0 [foz_us] 7.4-10.4 Automated blood neutrophils/100 leukocytes 66 % 42-75 Automated blood lymphocytes/100 leukocytes 13 % 12-44 Blood monocytes/100 leukocytes 17 % 0-12 Automated blood eosinophils/100 leukocytes 4 % 0-10 Automated blood basophils/100 leukocytes 0 % 0-10 Blood neutrophils automated count (number/volume) 2.6 10*3 1.8-7.8 Blood lymphocytes automated count (number/volume) 0.5 10*3 1.0-4.0 Blood monocytes automated count (number/volume) 0.7 10*3 0.0-1.0 Automated eosinophil count 0.2 10*3/uL 0.0-0.3 Automated blood basophil count (count/volume) 0.0 10*3/uL 0.0-0.1 Comprehensive metabolic panel - 04/18/17 05:55 Serum or plasma sodium measurement (moles/volume) 141 mmol/L 135-145 Serum or plasma potassium measurement (moles/volume) 3.2 mmol/L 3.6-5.0 Serum or plasma chloride measurement (moles/volume) 109 mmol/L 98-107 Carbon dioxide 23 mmol/L 21-32 Serum or plasma anion gap determination (moles/volume) 9 mmol/L 5-14 Serum or plasma urea nitrogen measurement (mass/volume) < mg/dL 7-18 Serum or plasma creatinine measurement (mass/volume) 0.52 mg/dL 0.60-1.30 Serum or plasma urea nitrogen/creatinine mass ratio 4 NRG Serum or plasma creatinine measurement with calculation of estimated glomerular filtration rate > NRG Serum or plasma glucose measurement (mass/volume) 86 mg/dL 70-105 Serum or plasma calcium measurement (mass/volume) 8.1 mg/dL 8.5-10.1 Serum or plasma total bilirubin measurement (mass/volume) 0.4 mg/dL 0.1-1.0 Serum or plasma alkaline phosphatase measurement (enzymatic activity/volume) 49 U/L 40-136 Serum or plasma aspartate aminotransferase measurement (enzymatic activity/ volume) 19 U/L 5-34 Serum or plasma alanine aminotransferase measurement (enzymatic activity/volume ) 13 U/L 0-55 Serum or plasma protein measurement (mass/volume) 6.3 g/dL 6.4-8.2 Serum or plasma albumin measurement (mass/volume) 2.6 g/dL 3.2-4.5 Complete blood count (CBC) with automated white blood cell (WBC) differential - 05/30/17 14:45 Blood leukocytes automated count (number/volume) 2.7 10*3/uL 4.3-11.0 Blood erythrocytes automated count (number/volume) 3.12 10*6/uL 4.35-5.85 Venous blood hemoglobin measurement (mass/volume) 10.5 g/dL 11.5-16.0 Blood hematocrit (volume fraction) 32 % 35-52 Automated erythrocyte mean corpuscular volume 102 [foz_us] 80-99 Automated erythrocyte mean corpuscular hemoglobin (mass per erythrocyte) 34 pg 25-34 Automated erythrocyte mean corpuscular hemoglobin concentration measurement ( mass/volume) 33 g/dL 32-36 Automated erythrocyte distribution width ratio 14.2 % 10.0-14.5 Automated blood platelet count (count/volume) 153 10*3/uL 130-400 Automated blood platelet mean volume measurement 8.6 [foz_us] 7.4-10.4 Automated blood neutrophils/100 leukocytes 71 % 42-75 Automated blood lymphocytes/100 leukocytes 14 % 12-44 Blood monocytes/100 leukocytes 12 % 0-12 Automated blood eosinophils/100 leukocytes 3 % 0-10 Automated blood basophils/100 leukocytes 0 % 0-10 Blood neutrophils automated count (number/volume) 1.9 10*3 1.8-7.8 Blood lymphocytes automated count (number/volume) 0.4 10*3 1.0-4.0 Blood monocytes automated count (number/volume) 0.3 10*3 0.0-1.0 Automated eosinophil count 0.1 10*3/uL 0.0-0.3 Automated blood basophil count (count/volume) 0.0 10*3/uL 0.0-0.1 Comprehensive metabolic panel - 05/30/17 14:45 Serum or plasma sodium measurement (moles/volume) 141 mmol/L 135-145 Serum or plasma potassium measurement (moles/volume) 4.0 mmol/L 3.6-5.0 Serum or plasma chloride measurement (moles/volume) 108 mmol/L 98-107 Carbon dioxide 26 mmol/L 21-32 Serum or plasma anion gap determination (moles/volume) 7 mmol/L 5-14 Serum or plasma urea nitrogen measurement (mass/volume) 9 mg/dL 7-18 Serum or plasma creatinine measurement (mass/volume) 0.65 mg/dL 0.60-1.30 Serum or plasma urea nitrogen/creatinine mass ratio 14 NRG Serum or plasma creatinine measurement with calculation of estimated glomerular filtration rate > NRG Serum or plasma glucose measurement (mass/volume) 98 mg/dL 70-105 Serum or plasma calcium measurement (mass/volume) 8.8 mg/dL 8.5-10.1 Serum or plasma total bilirubin measurement (mass/volume) 0.4 mg/dL 0.1-1.0 Serum or plasma alkaline phosphatase measurement (enzymatic activity/volume) 43 U/L 40-136 Serum or plasma aspartate aminotransferase measurement (enzymatic activity/ volume) 24 U/L 5-34 Serum or plasma alanine aminotransferase measurement (enzymatic activity/volume ) 19 U/L 0-55 Serum or plasma protein measurement (mass/volume) 7.2 g/dL 6.4-8.2 Serum or plasma albumin measurement (mass/volume) 3.6 g/dL 3.2-4.5 Cancer antigen 27-29 measurement - 05/30/17 14:45 Cancer antigen 27-29 measurement 19.6 u[iU]/mL 0.0-38.0 Complete blood count (CBC) with automated white blood cell (WBC) differential - 07/18/17 14:25 Blood leukocytes automated count (number/volume) 2.5 10*3/uL 4.3-11.0 Blood erythrocytes automated count (number/volume) 2.98 10*6/uL 4.35-5.85 Venous blood hemoglobin measurement (mass/volume) 10.1 g/dL 11.5-16.0 Blood hematocrit (volume fraction) 30 % 35-52 Automated erythrocyte mean corpuscular volume 101 [foz_us] 80-99 Automated erythrocyte mean corpuscular hemoglobin (mass per erythrocyte) 34 pg 25-34 Automated erythrocyte mean corpuscular hemoglobin concentration measurement ( mass/volume) 34 g/dL 32-36 Automated erythrocyte distribution width ratio 14.4 % 10.0-14.5 Automated blood platelet count (count/volume) 146 10*3/uL 130-400 Automated blood platelet mean volume measurement 8.3 [foz_us] 7.4-10.4 Automated blood neutrophils/100 leukocytes 69 % 42-75 Automated blood lymphocytes/100 leukocytes 15 % 12-44 Blood monocytes/100 leukocytes 14 % 0-12 Automated blood eosinophils/100 leukocytes 1 % 0-10 Automated blood basophils/100 leukocytes 1 % 0-10 Blood neutrophils automated count (number/volume) 1.7 10*3 1.8-7.8 Blood lymphocytes automated count (number/volume) 0.4 10*3 1.0-4.0 Blood monocytes automated count (number/volume) 0.4 10*3 0.0-1.0 Automated eosinophil count 0.0 10*3/uL 0.0-0.3 Automated blood basophil count (count/volume) 0.0 10*3/uL 0.0-0.1 Whole blood basic metabolic panel - 07/18/17 14:25 Serum or plasma sodium measurement (moles/volume) 140 mmol/L 135-145 Serum or plasma potassium measurement (moles/volume) 4.1 mmol/L 3.6-5.0 Serum or plasma chloride measurement (moles/volume) 107 mmol/L 98-107 Carbon dioxide 25 mmol/L 21-32 Serum or plasma anion gap determination (moles/volume) 8 mmol/L 5-14 Serum or plasma urea nitrogen measurement (mass/volume) 13 mg/dL 7-18 Serum or plasma creatinine measurement (mass/volume) 0.72 mg/dL 0.60-1.30 Serum or plasma urea nitrogen/creatinine mass ratio 18 NRG Serum or plasma creatinine measurement with calculation of estimated glomerular filtration rate > NRG Serum or plasma glucose measurement (mass/volume) 98 mg/dL 70-105 Serum or plasma calcium measurement (mass/volume) 8.6 mg/dL 8.5-10.1 Encounters ACCT No. Visit Date/Time Discharge Status Pt. Type Provider Facility Loc./Unit Complaint [id number] 05/09/2017 12:17:40 05/09/2017 23:59:59 CLS Outpatient Shanita, V S [id number] 04/02/2017 12:04:50 04/02/2017 23:59:59 CLS Outpatient Shanita, V S [id number] 02/27/2017 14:31:21 02/27/2017 23:59:59 CLS Outpatient Julio Duenas [id number] 02/26/2017 10:37:25 02/26/2017 23:59:59 CLS Outpatient Julio Duenas [id number] 12/21/2016 09:30:58 12/21/2016 23:59:59 CLS Outpatient Julio Duenas [id number] 07/26/2015 15:33:46 07/26/2015 23:59:59 CLS Outpatient Domi Shields [id number] 03/10/2014 09:53:01 03/10/2014 23:59:59 CLS Outpatient Julio Duenas [id number] 02/05/2014 09:43:42 02/05/2014 23:59:59 CLS Outpatient Julio Duenas [id number] 05/28/2013 09:43:10 05/28/2013 23:59:59 CLS Outpatient Caro Dale [id number] 12/25/2017 09:43:29 Document Registration [id number] 09/16/2017 11:29:27 Document Registration [id number] 04/08/2017 09:48:02 Document Registration [id number] 02/25/2017 08:55:40 Document Registration [id number] 02/06/2017 14:33:39 Document Registration [id number] 12/03/2017 09:15:00 12/03/2017 23:59:59 CLS Outpatient PALMER RICE MD [facility] ONC [id number] 11/19/2017 07:52:00 11/19/2017 23:59:59 CLS Outpatient PALMER RICE MD [facility] RAD BREAST CANCER [id number] 09/16/2017 09:29:00 09/18/2017 00:01:00 DIS Outpatient PALMER RICE MD [facility] ONC [id number] 08/15/2017 11:14:00 08/15/2017 23:59:59 CLS Outpatient PALMER RICE MD [facility] RAD C79.51 BONE METASTASIS [id number] 05/30/2017 14:15:00 06/03/2017 00:01:00 DIS Outpatient PALMER RICE MD [facility] ONC [id number] 04/29/2017 09:33:00 04/29/2017 23:59:59 CLS Outpatient PALMER RICE MD [facility] RAD C50.312,C79.51 [id number] 04/14/2017 09:56:00 04/18/2017 12:45:00 DIS Inpatient GABBIE BERGERON MD [facility] 4TH C DIFF, DIARRHEA [id number] 04/11/2017 14:16:00 04/11/2017 17:34:00 DIS Emergency MARIA C RIOJAS APRN [facility] ER FEVER DIARRHEA [id number] 03/25/2017 19:46:00 03/29/2017 11:45:00 DIS Inpatient HUNTER BRAND MD [facility] 4TH HYPOVOLEMIA,UTI, METASTATIC CANCER [id number] 03/18/2017 11:50:00 03/18/2017 15:30:00 DIS Emergency ABNER LISA, THIERNO Sheth [facility] ER CAN'T PEE [id number] 02/27/2017 09:24:00 03/02/2017 00:01:00 DIS Outpatient PALMER RICE MD [facility] ONC [id number] 01/17/2017 10:35:00 02/14/2017 11:15:00 DIS Outpatient PALMER RICE MD [facility] PAR [id number] 12/13/2016 08:45:00 12/19/2016 00:01:00 DIS Outpatient PALMER RICE MD [facility] PAR [id number] 09/06/2016 09:33:00 09/19/2016 00:01:00 DIS Outpatient PALMER RICE MD [facility] PAR [id number] 08/10/2013 07:05:00 08/10/2013 23:59:59 CLS Outpatient [id number] 06/28/2016 14:41:00 06/28/2016 23:59:59 CLS Outpatient PALMER RICE MD [facility] PAR
[2018-01-07 00:45] VITALS: BP 123/74
[2018-01-07] MEDS ORDERED: RT-ALBUTEROL/IPRATROPIUM 3 ML (DUONEB) VIAL INH PRN (01:45)
[2018-01-07 04:32] VITALS: BP 109/55
[2018-01-07] MEDS: morphine INJ 4 MG/ML 1 ML (VIAL/SYRINGE) IV PRN ×2 (05:14→21:08)
[2018-01-07] MEDS: CATHETER FLUSH 10 ML SYR IV SCH ×3 (05:20→19:24)
[2018-01-07 05:34] LABS: BASOPHILS % (AUTO) 0 % (0-10); EOSINOPHILS # (AUTO) 0.1 10^3/uL (0.0-0.3); EOSINOPHILS % (AUTO) 2 % (0-10); HEMATOCRIT 32 % (35-52); HEMOGLOBIN 10.5 G/DL (11.5-16.0); LYMPHOCYTES # (AUTO) 0.5 X 10^3 (1.0-4.0); LYMPHOCYTES % (AUTO) 12 % (12-44); MEAN CORPUSCULAR HEMOGLOBIN 32 PG (25-34); MEAN CORPUSCULAR HGB CONC 33 G/DL (32-36); MEAN CORPUSCULAR VOLUME 97 FL (80-99); MEAN PLATELET VOLUME 8.9 FL (7.4-10.4); MONOCYTES # (AUTO) 0.7 X 10^3 (0.0-1.0); MONOCYTES % (AUTO) 17 % (0-12); NEUTROPHILS # (AUTO) 2.9 X 10^3 (1.8-7.8); NEUTROPHILS % (AUTO) 70 % (42-75); PLATELET COUNT 196 10^3/uL (130-400); RED BLOOD COUNT 3.31 10^6/uL (4.35-5.85); WHITE BLOOD COUNT 4.1 10^3/uL (4.3-11.0)
[2018-01-07 06:49] LABS: ALANINE AMINOTRANSFERASE 51 U/L (0-55); ALBUMIN 2.9 GM/DL (3.2-4.5); ALKALINE PHOSPHATASE 160 U/L (40-136); BILIRUBIN,TOTAL 0.9 MG/DL (0.1-1.0); BUN/CREATININE RATIO 20; CALCIUM 8.6 MG/DL (8.5-10.1); CARBON DIOXIDE 24 MMOL/L (21-32); CHLORIDE 106 MMOL/L (98-107); CREATININE SERUM 0.82 MG/DL (0.60-1.30); GFR ESTIMATED > 60; GLUCOSE 83 MG/DL (70-105); POTASSIUM 3.7 MMOL/L (3.6-5.0); SODIUM 137 MMOL/L (135-145); TOTAL PROTEIN 7.3 GM/DL (6.4-8.2)
[2018-01-07 08:00] VITALS: BP 104/57
[2018-01-07] MEDS: RT-ALBUTEROL/IPRATROPIUM 3 ML (DUONEB) VIAL INH SCH ×4 (08:04→19:15)
[2018-01-07] MEDS ORDERED: POLY17PO6 PO (10:27)
[2018-01-07] MEDS ORDERED: LIDO15SO2 PO (10:27)
[2018-01-07] MEDS ORDERED: CAPE500T14 PO (10:27)
[2018-01-07] MEDS ORDERED: OXYC-471 PO (10:27)
[2018-01-07] MEDS ORDERED: DRON2.5C10 PO (10:27)
[2018-01-07] MEDS ORDERED: LD5O35 TOP (10:27)
[2018-01-07] MEDS ORDERED: ACID1TAB5 PO (10:27)
[2018-01-07] MEDS ORDERED: PROC10TA10 PO (10:32)
[2018-01-07] MEDS ORDERED: PYRI100T2 PO (10:38)
--- NOTE | 2018-01-07 10:53 | History & Physical-Hospitalist ---
History of Present Illness HPI/Chief Complaint Pt is a 62yoCF with a PMH of metastatic breast cancer who presented to the ER due to fever. She states roughly one week again she developed shortness of breath and then three days ago developed fever. She attempted to wait it out but her fever continued to rise and was up to 101.6 yesterday evening prior to arrival. She denies any sputum but does have a cough. She denies any diarrhea but has a history of c diff. She is currently on oral chemotherapy at this time by her oncologist at the [facility] in [place]. She started treatment there in the last month as she wanted to explore more options for treatment. Source: patient Date Seen 01/07/18 Time Seen by Provider: 10:59 Attending Physician Jeffrey Soler MD PCP Dank Haskins DO Referring Physician Date of Admission Jan 06, 2018 at 11:10 pm Home Medications & Allergies Home Medications Reviewed patient Home Medication Reconciliation performed by pharmacy medication reconciliations geothermal field technician and/or nursing. Patients Allergies have been reviewed. Allergies Allergies Coded Allergies mannitol (Unverified Adverse Reaction, Unknown, 04/11/17) water for injection,sterile (Unverified Adverse Reaction, Unknown, 04/11/17) zoledronic acid (Unverified Adverse Reaction, Unknown, 04/11/17) Past Qkigfbf-Omrtby-Ukxgur Hx Past Med/Social Hx: Reviewed Nursing Past Med/Soc Hx Patient Social History Marrital Status: Alcohol Use: Denies Use Number of Drinks Today: AA Alcohol Beverage of Choice: Beer Recreational Drug Use: No Smoking Status: Former Smoker Former Smoker, Quit: Jun 03, 2007 Type Used: Cigarettes Physical Abuse Screen: No Sexual Abuse: No Recent Foreign Travel: No Contact w/other who traveled: No Recent Hopitalizations: No Recent Infectious Disease Expo: No Immunizations Up To Date Tetanus Booster (TDap): Unknown Pediatric: No Seasonal Allergies Seasonal Allergies: No Past Medical History Surgeries: Abdominal, Appendectomy, Breast, Orthopedic Neurological: Brain Tumor Reproductive: No Sexually Transmitted Disease: No Gastrointestinal: Gastroesophageal Reflux Cancer: Breast (metastatic) Did You Recieve Any Treatments: Yes What Type of Treatment Did You: Chemotherapy, Surgical Intervention History of Blood Disorders: No Adverse Reaction to Blood Barakat: No Family History Patient reports no known family medical history. No Pertinent Family Hx Review of Systems Constitutional: No chills; fever EENTM: No blurred vision, No double vision, No nose congestion, No throat pain Respiratory: cough; No dyspnea on exertion, No phlegm; short of breath Cardiovascular: No chest pain, No edema, No palpitations Gastrointestinal: No abdominal pain, No constipation, No diarrhea, No nausea, No vomiting Genitourinary: No dysuria, No frequency Musculoskeletal: No joint pain, No muscle pain Skin: No lesions, No rash Psychiatric/Neurological: Denies Headache, Denies Numbness, Denies Tingling Physical Exam Physical Exam Vital Signs Vital Signs - First Documented 01/06/18 01/06/18 01/07/18 20:28 23:36 00:45 Temp 98.8 Pulse 84 Resp 14 B/P (MAP) 123/74 (90) Pulse Ox 96 O2 Delivery Room Air FiO2 21 Capillary Refill : Less Than 3 Seconds Height, Weight, BMI Height: 5'9.00" Weight: 132lbs. 8.0oz. [id number]; 19.6 BMI Method:Stated General Appearance: No Apparent Distress, WD/WN HEENT: PERRL/EOMI, Moist Mucous Membranes Neck: Non Tender, Supple Respiratory: No Respiratory Distress, Decreased Breath Sounds Cardiovascular: Regular Rate, Rhythm, No Murmur Gastrointestinal: Normal Bowel Sounds, Non Tender, Soft Extremity: Normal Capillary Refill, No Calf Tenderness Neurologic/Psychiatric: Alert, Oriented x3, Normal Mood/Affect Skin: Normal Color, Warm/Dry Results Results/Procedures Labs Laboratory Tests 01/06/18 21:39 01/07/18 05:20 Patient resulted labs reviewed. Imaging: Reviewed Imaging Report Assessment/Plan Admission Diagnosis Fever Admission Status: Inpatient Order (span 2 midnights) Reason for Inpatient Admission: immunsuppressed on chemo with fever and leukopenia- will need more than two midnight stabilize for discharge Diagnosis/Problems Diagnosis/Problems (1) FEVER ON CHEMO Status: Acute Assessment & Plan: WBC dropped today Will continue Zosyn Cultures pending (2) Pleural effusion Assessment & Plan: Will do 1x dose of lasix Stop IVF on room air currently (3) Metastatic breast cancer Status: Chronic Assessment & Plan: follows with [facility] Currently on oral chemo Oncology consulted, appreciate recs (4) Prophylactic measure Assessment & Plan: Lovenox Saline Lock Reg Diet Clinical Quality Measures DVT/VTE Risk/Contraindication: Risk Factor Score Per Nursin RFS Level Per Nursing on Admit: 2=Moderate GABBIE BERGERON MD Jan 07, 2018 10:53 am
[2018-01-07] MEDS ORDERED: FUROSEMIDE 40 MG/4 ML INJ (LASIX) IVP NR (11:05)
[2018-01-07] MEDS: PIPERACILLIN SODIUM/TAZOBACTAM 4.5 GM in D5W 100 ML IVPB 100 ML IV SCH ×2 (11:19→19:24)
[2018-01-07 12:00] VITALS: BP_SYST 108; BP_SYST 194; BP_DIAS 52; BP_DIAS 77
[2018-01-07] MEDS: ENOXAPARIN 40 MG/0.4 ML (LOVENOX) SYR SC SCH (13:01)
[2018-01-07 16:00] VITALS: BP 96/50
[2018-01-07] MEDS: LACTOBACILLUS Acidoph/Bulgar (LACTINEX/FLORANEX) TAB PO SCH (16:13)
--- NOTE | 2018-01-07 22:55 | CONSULTATION REPORT ---
DATE OF SERVICE: 01/07/2018 REFERRING PHYSICIAN: Dr. Gisela Leal. The patient is admitted to room 415. IMPRESSION: 1. A 62-year-old female admitted with febrile illness. 2. History of metastatic breast cancer, been currently on chemotherapy with oral Xeloda. 3. Metastatic breast cancer and on multiple chemotherapies in the past. RECOMMENDATIONS: 1. Continue broad spectrum antibiotic as you are doing and await culture results. 2. Hold oral chemotherapy because of possible infection. 3. Adjust antibiotics if any cultures turn positive based on the sensitivity. 4. We will follow the patient with you. BRIEF HISTORY OF PRESENT ILLNESS: The patient is a 62-year-old female with a history of metastatic breast cancer. She has been on multiple chemotherapies in the past and recently started following at the [facility] in [place]. She was started on chemotherapy with oral Xeloda at 500 mg b.i.d. continuously and has completed two weeks of treatment. The patient mentions that she started having shaking chills at home, following which her temperature elizabeth to 101.6 degrees Fahrenheit. As she was feeling weak and shaky, she decided to come to the emergency room for evaluation and was admitted. Oncology consultation was obtained for concurrent care. She complained of slight increase in cough and shortness of breath since the past few weeks. She denied any urinary symptoms. No sore throat or sinus drainage. No diarrhea, constipation, hematochezia or melena. Her skin nodules have increased in size likely and some of them are draining. PAST MEDICAL HISTORY: Significant for left breast cancer diagnosed in 2000, status post modified radical mastectomy, sentinel lymph node biopsy as well as TRAM flap reconstruction in [place]. She did not receive any adjuvant chemotherapy. Diagnosed with metastatic disease in the left chest wall and bone in 2013. Initially, she was treated with TCHP regimen x7 cycles and was on maintenance Herceptin plus Perjeta plus Arimidex for a year. She developed recurrence in the left chest wall and reconstructed breast tissue. She underwent a left mastectomy along with the flap at [facility] and was on treatment with Ibrance plus letrozole. She developed progressive disease within a few months as well as liver metastasis. She underwent palliative radiation therapy to the bone to the lower spine, pelvis because of painful lesion along with weekly chemotherapy with Taxotere with benefit. Following this, she was treated with Verzenio along with Faslodex for some time, but this caused neutropenia. At this point, the patient decided to seek another opinion at [facility] in [place] and was started on oral Xeloda 2 weeks ago. She is scheduled to return for a visit at the end of January in [place]. Other significant past history includes gastroesophageal reflux disease. Other surgeries include appendectomy, left mastectomy with TRAM flap reconstruction, abdominal wall hernia requiring surgical correction with mesh placement, knee surgery, carpal tunnel release and resection of chest wall recurrence with removal of the TRAM flap. SOCIAL HISTORY: The patient is and lives near [place], [place]. She is unable to because of her treatments and its complications. She has a previous history of tobacco use, but quit in 2007. Uses alcohol socially. No history of recreational drug use. FAMILY HISTORY: Unremarkable with no significant malignancy. PHYSICAL EXAMINATION: GENERAL: Today showed an elderly female, thin appearing, awake and oriented, in no acute distress. VITAL SIGNS: Temperature was 98.2, pulse rate 71, respirations 18, blood pressure 108/52 with 95% saturation on room air. T-max earlier this morning was 100.1 degrees Fahrenheit. HEENT: Normocephalic, extraocular muscles intact, conjunctivae pink, oral mucosa moist. NECK: Supple, with no JVD. No cervical, supraclavicular or axillary lymphadenopathy palpable. Examination of the chest showed left mastectomy. There is a skin nodule overlying the sternum measuring 1.5 cm in diameter. Right breast with indurated lesion that is covered with a Band-Aid with some drainage. LUNGS: Slightly diminished breath sounds bilaterally without wheezes or rales. HEART: Regular in rate and rhythm without murmurs or gallops. ABDOMEN: Soft, nontender with no hepatosplenomegaly or other masses palpable. EXTREMITIES: Showed no edema. NEUROLOGIC: Showed no focal motor deficits. LABORATORY DATA: CBC done today showed total white count of 4.1, hemoglobin 10.5, platelet count 196,000 with neutrophil count 2.9 and lymphocyte count 0.5. Chemistry panel today showed normal electrolytes. BUN was 16 and creatinine 0.82 with GFR more than 60 mL per minute. Liver function studies showed AST at 145, alkaline phosphatase at 160 and albumin below normal at 2.9. Last CA 15-3 level was elevated at 85.4 from 11/19/2017. Chest x-ray done last night at the emergency room showed a new small left pleural effusion and trace right pleural effusion. Thank you for allowing me to participate in this patient's care. I will follow the patient with you and make appropriate recommendations. Job ID: [id number] DocumentID: [id number] Dictated Date: 01/07/2018 16:27:28 Computational Linguist Date: 01/07/2018 22:54:29 Dictated By: VIMAL TALBERT MD MTDD
[2018-01-08 00:06] VITALS: BP 118/63
[2018-01-08] MEDS: PIPERACILLIN SODIUM/TAZOBACTAM 4.5 GM in D5W 100 ML IVPB 100 ML IV SCH ×3 (02:34→18:19)
[2018-01-08 04:01] VITALS: BP 100/52
[2018-01-08] MEDS: LACTOBACILLUS Acidoph/Bulgar (LACTINEX/FLORANEX) TAB PO SCH ×3 (05:41→18:18)
[2018-01-08] MEDS: CATHETER FLUSH 10 ML SYR IV SCH ×3 (05:41→22:30)
[2018-01-08] MEDS: RT-ALBUTEROL/IPRATROPIUM 3 ML (DUONEB) VIAL INH SCH ×4 (07:18→19:31)
[2018-01-08 08:00] VITALS: BP 91/50
[2018-01-08] MEDS: morphine INJ 4 MG/ML 1 ML (VIAL/SYRINGE) IV PRN (08:53)
[2018-01-08 09:16] LABS: BASOPHILS % (AUTO) 0 % (0-10); EOSINOPHILS # (AUTO) 0.1 10^3/uL (0.0-0.3); EOSINOPHILS % (AUTO) 2 % (0-10); HEMATOCRIT 32 % (35-52); HEMOGLOBIN 10.5 G/DL (11.5-16.0); LYMPHOCYTES # (AUTO) 0.3 X 10^3 (1.0-4.0); LYMPHOCYTES % (AUTO) 8 % (12-44); MEAN CORPUSCULAR HEMOGLOBIN 32 PG (25-34); MEAN CORPUSCULAR HGB CONC 33 G/DL (32-36); MEAN CORPUSCULAR VOLUME 98 FL (80-99); MEAN PLATELET VOLUME 8.9 FL (7.4-10.4); MONOCYTES # (AUTO) 0.6 X 10^3 (0.0-1.0); MONOCYTES % (AUTO) 17 % (0-12); NEUTROPHILS # (AUTO) 2.4 X 10^3 (1.8-7.8); NEUTROPHILS % (AUTO) 74 % (42-75); PLATELET COUNT 179 10^3/uL (130-400); RED BLOOD COUNT 3.24 10^6/uL (4.35-5.85); RED CELL DISTRIBUTION WIDTH 17.1 % (10.0-14.5); WHITE BLOOD COUNT 3.3 10^3/uL (4.3-11.0)
[2018-01-08 09:46] LABS: BUN/CREATININE RATIO 15; CALCIUM 8.7 MG/DL (8.5-10.1); CARBON DIOXIDE 23 MMOL/L (21-32); CHLORIDE 102 MMOL/L (98-107); CREATININE SERUM 0.85 MG/DL (0.60-1.30); GFR ESTIMATED > 60; GLUCOSE 82 MG/DL (70-105); POTASSIUM 3.3 MMOL/L (3.6-5.0); SODIUM 135 MMOL/L (135-145)
[2018-01-08] MEDS ORDERED: KCL 10 MEQ TAB (MICRO K) PO NR (10:00)
--- NOTE | 2018-01-08 10:01 | Progress Note-Hospitalist ---
Subjective HPI/CC On Admission Date Seen by Provider: Jan 08, 2018 Time Seen by Provider: 09:56 Pt is a 62yoCF with a PMH of metastatic breast cancer who presented to the ER due to fever. She states roughly one week again she developed shortness of breath and then three days ago developed fever. She attempted to wait it out but her fever continued to rise and was up to 101.6 yesterday evening prior to arrival. She denies any sputum but does have a cough. She denies any diarrhea but has a history of c diff. She is currently on oral chemotherapy at this time by her oncologist at the [facility] in [place]. She started treatment there in the last month as she wanted to explore more options for treatment. Subjective/Events-last exam Pt complains of rib pain overnight. No other complaints. Focused Exam Lactate Level 01/06/18 21:39: Lactic Acid Level 1.36 Objective Exam Vital Signs Vital Signs Date Time Temp Pulse Resp B/P (MAP) Pulse Ox O2 Delivery O2 Flow Rate FiO2 01/08/18 08:00 98.2 90 22 91/50 (64) 97 Room Air 01/07/18 00:45 21 Capillary Refill : Less Than 3 Seconds General Appearance: No Apparent Distress, WD/WN Respiratory: Lungs Clear Cardiovascular: Regular Rate, Rhythm, No Murmur Gastrointestinal: Normal Bowel Sounds, Soft Neurologic/Psychiatric: Alert, Oriented x3, Normal Mood/Affect Results/Procedures Lab Laboratory Tests 01/08/18 08:50 Patient resulted labs reviewed. Imaging: Reviewed Imaging Report Assessment/Plan Assessment and Plan Assess & Plan/Chief Complaint fever on chemotherapy Diagnosis/Problems Diagnosis/Problems (1) FEVER ON CHEMO Status: Acute Assessment & Plan: WBC dropped slightly again today Will continue Zosyn today continue on probiotic with history of c diff afebrile over 24 hours Cultures pending (2) Pleural effusion Assessment & Plan: s/p Lasix on RA (3) Metastatic breast cancer Status: Chronic Assessment & Plan: follows with [facility] Currently on oral chemo Oncology consulted, appreciate recs (4) Prophylactic measure Assessment & Plan: Lovenox Saline Lock Reg Diet Clinical Quality Measures DVT/VTE Risk/Contraindication: Risk Factor Score Per Nursin RFS Level Per Nursing on Admit: 2=Moderate GABBIE BERGERON MD Jan 08, 2018 10:01 am
[2018-01-08] MEDS: ENOXAPARIN 40 MG/0.4 ML (LOVENOX) SYR SC SCH (10:38)
[2018-01-08 12:00] VITALS: BP 104/51
[2018-01-08 16:00] VITALS: BP 105/51
[2018-01-09] VITALS: BP 96/50
[2018-01-09] MEDS: PIPERACILLIN SODIUM/TAZOBACTAM 4.5 GM in D5W 100 ML IVPB 100 ML IV SCH ×2 (02:59→11:33)
[2018-01-09] MEDS: LACTOBACILLUS Acidoph/Bulgar (LACTINEX/FLORANEX) TAB PO SCH ×2 (06:16→11:40)
[2018-01-09] MEDS: CATHETER FLUSH 10 ML SYR IV SCH (06:16)
[2018-01-09] MEDS: RT-ALBUTEROL/IPRATROPIUM 3 ML (DUONEB) VIAL INH SCH ×2 (07:32→10:59)
[2018-01-09 08:00] VITALS: BP 104/56
[2018-01-09] MEDS ORDERED: Oxycodone Hcl PO (11:02)
[2018-01-09] MEDS ORDERED: AMOX-358 PO (11:02)
--- NOTE | 2018-01-09 11:06 | Discharge Inst-Simple/Standard ---
Discharge Inst-Standard Discharge Medications New, Converted or Re-Newed RX: Transmitted to Pharmacy Patient Instructions/Follow Up Plan of Care/Instructions/FU: Please continue to take your medications as written and please follow up with your oncologist in [place]. Activity as Tolerated: Yes Discharge Diet: No Restrictions Return to The Hospital For: Fever, SOB, cough, confusion if you feel you are getting worse. GABBIE BERGERON MD Jan 09, 2018 11:06
--- NOTE | 2018-01-09 11:27 | Discharge Summary-Hospitalist ---
Diagnosis/Chief Complaint Date of Admission Jan 06, 2018 at 11:10 pm Date of Discharge Discharge Date: Jan 09, 2018 Admission Diagnosis Fever Discharge Diagnosis (1) FEVER ON CHEMO Status: Acute Assessment & Plan: Afebrile x48 hours Continue on antibiotics at home Sent home with augmentin (2) Pleural effusion Assessment & Plan: s/p Lasix on RA (3) Metastatic breast cancer Status: Chronic Assessment & Plan: follows with [facility] Currently on oral chemo Oncology consulted, appreciate recs (4) Prophylactic measure Assessment & Plan: Lovenox Saline Lock Reg Diet Discharge Summary Procedures/Consulations Dr Goode- [place]/Onc Discharge Physical Exam Allergies: Coded Allergies: mannitol (Unverified Adverse Reaction, Unknown, 04/11/17) water for injection,sterile (Unverified Adverse Reaction, Unknown, 04/11/17 ) zoledronic acid (Unverified Adverse Reaction, Unknown, 04/11/17) Vitals & I&Os Vital Signs Date Time Temp Pulse Resp B/P (MAP) Pulse Ox O2 Delivery O2 Flow Rate FiO2 01/09/18 12:30 81 18 104/56 97 Room Air 01/09/18 08:00 98.0 01/07/18 00:45 21 General Appearance: Alert, Oriented X3 Respiratory: Clear to Auscultation Cardiovascular: Regular Rate Hospital Course Pt was admitted to the hospital due to fever while on chemotherapy. She was not neutropenic but blood and wound cultures were obtained. Blood cultures had no growth and wound culture grew staph aureus and coag negative staph. She responded well to Zosyn and was improved upon discharged. She was found to have a pleural effusion which was treated with Lasix. She was discharged in stable condition to follow up with her PCP in [place] and complete a course of Augmentin. Given recent history of c. diff she was advised to stya on probiotics and call her PCP if any diarrhea started. Labs (last 24 hrs) Microbiology 01/06/18 Blood Culture - Final, Complete No growth 01/06/18 Gram Stain - Final, Complete 01/06/18 Wound Culture - Final, Complete Methicillin-S Staph aureus Staph, Coag Neg ([employer]OCKSTITCH) See Report Sent To [facility] Patient resulted labs reviewed. Imaging: Reviewed Imaging Report Discussion & Recommendations Discharge Planning: >30 minutes discharge planning Discharge Home Medications: Active Scripts Active Augmentin 875-125 Tablet (Amoxicillin/Potassium Clav) 1 Each Tablet 1 Each PO BID [Oxycodone Hcl] 5 MG Tab 5 Mg PO Q4H PRN Reported Vitamin B-6 (Pyridoxine HCl) 100 Mg Tablet 100 Mg PO DAILY Prochlorperazine Maleate 10 Mg Tablet 1 Tab PO Q4H PRN Miralax (Polyethylene Glycol 3350) 17 Gm Powd.pack 17 Gm PO DAILY PRN Lactinex Chewable Tablet (L. Acidophilus/Bulgaricus) 1 Each Tab.chew 1 Tab.chew PO HS Lidocaine (Lidocaine HCl) 35 Gm Oint TOP BID PRN Lidocaine HCl Viscous (Lidocaine HCl) 15 Ml Solution PO UD PRN Dronabinol 2.5 Mg Capsule 2.5 Mg PO HS Capecitabine 500 Mg Tablet 500 Mg PO BID Ondansetron HCl 8 Mg Tablet 8 Mg PO Q8H PRN Instructions to patient/family Please see electronic discharge instructions given to patient. Clinical Quality Measures DVT/VTE Risk/Contraindication: Risk Factor Score Per Nursin RFS Level Per Nursing on Admit: 2=Moderate GABBIE BERGERON MD Jan 09, 2018 11:27
[2018-01-09] MEDS ORDERED: AUGMENTIN 875 MG TAB (AMOXICILLIN/CLAVULANATE) PO NR (11:30)
[2018-01-09] MEDS: ENOXAPARIN 40 MG/0.4 ML (LOVENOX) SYR SC SCH (11:40)
[2018-01-09 12:30] VITALS: BP 104/56
--- NOTE | 2018-01-10 13:32 | Physician Query Clarification ---
PQ-Further Specificity Admission/Discharge Admission Date: Jan 06, 2018 at 23:10 Discharge Date: Jan 09, 2018 at 12:30 The medical record reflects the following clinical scenario: History/Risk Factor: Fever Patient on chemotherapy-immunosuppressed. Clinical Findings:WBC 5.4 then dropping to 4.1 and 3.3. H&P says, "immunosuppressed on chemo with fever and leukopenia" Discharge summary draft says," patient was not neutropenic. Treatment: IV antibiotics. Question: Can you further specify diagnosis/condition per the clinical indicators above? Please document below. 1. Fever and leukocytosis due to chemotherapy. 2. Fever due to chemotherapy. 3. Other, with explanation of the clinical findings. 4. Clinically undetermined, no explanation for the clinical findings. PHYSICIAN RESPONSE Can you specify per above: 2 In responding to this query, please exercise your independent professional judgment. The purpose of this communication is to more accurately reflect the complexity of your patients condition. The fact that a question is asked does not imply that any particular answer is desired or expected. Thank you for your timely response to this clarification. Requestors name: Geovanna Alvarenga [facility] Phone # ext [phone] or [phone] THIS PHYSICIAN QUERY FORM IS A PERMANENT PART OF THE MEDICAL RECORD GEOVANNA ALVARENGA Jan 10, 2018 13:32 GABBIE BERGERON MD Jan 10, 2018 18:41
--- NOTE | 2018-01-10 13:38 | Physician Query Clarification ---
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 Clinical Findings: Wound culture positive for Staph aureus and coag neg staph. Treatment: IV Zosyn. Question: What condition best reflects the above clinical scenario? Please document below. 1. Cellulitis of chest wall (breast) with neoplasm chest wall. 2. Other-Please specify infection and clarify for coding _. 3. Other, with explanation of the clinical findings. 4. Clinically undetermined, no explanation for the clinical findings. PHYSICIAN RESPONSE What condition reflects above: 1 In responding to this query, please exercise your independent professional judgment. The purpose of this communication is to more accurately reflect the complexity of your patients condition. The fact that a question is asked does not imply that any particular answer is desired or expected. Thank you for your timely response to this clarification. Requestors name: Geovanna Alvarenga [facility] Phone # ext [phone] or [phone] THIS PHYSICIAN QUERY FORM IS A PERMANENT PART OF THE MEDICAL RECORD GEOVANNA ALVARENGA Jan 10, 2018 13:38 GABBIE BERGERON MD Jan 10, 2018 18:45
== END 2018-01-09 12:30 | disposition home or self-care (01) | DRG 864 ==
LOC: EDUNIT# 20:17 → ER 20:18 → 4TH 23:10
PROVIDERS: ADMIT Internal Medicine; ATTEND Internal Medicine
DX: R50.2 Drug induced fever (principal); T45.1X5A Adverse effect of antineoplastic and immunosuppressive drugs, initial encounter; L03.313 Cellulitis of chest wall; J90 Pleural effusion, not elsewhere classified; C79.89 Secondary malignant neoplasm of other specified sites; C79.51 Secondary malignant neoplasm of bone; C78.7 Secondary malignant neoplasm of liver and intrahepatic bile duct; K21.9 Gastro-esophageal reflux disease without esophagitis; A49.01 Methicillin susceptible Staphylococcus aureus infection, unspecified site; Z85.3 Personal history of malignant neoplasm of breast; Z87.891 Personal history of nicotine dependence; Z86.19 Personal history of other infectious and parasitic diseases; Z90.12 Acquired absence of left breast and nipple; Z79.01 Long term (current) use of anticoagulants; Z79.899 Other long term (current) drug therapy
CPT/HCPCS: 36415; 71046; 80048; 80053; 81000; 83605; 83735; 85025; 87040; 87070; 87077; 87186; 87205; 93041; 94640; 94664; 94760; 96365

== ENCOUNTER 2018-01-14 14:17 | Inpatient (IN) | payer BC ==
[~2018-01-14] VITALS: Ht 175.3 cm; Wt 59.9 kg
[~2018-01-14 14:17] MED LIST changes: -AMLO10TA2 PO; +AMLO10TA6 PO; +AMOX-358 PO; +CAPE500T14 PO; +DRON2.5C10 PO; +LD5O35 TOP; +LIDO15SO2 PO; +OXYC-471 PO; +Oxycodone Hcl PO; +POLY17PO6 PO; +PROC10TA10 PO; +PYRI100T2 PO
[2018-01-14 14:30] VITALS: BP 117/61
--- OUTSIDE RECORDS SUMMARY | 2018-01-14 15:11 | XMS REPORT | Clinical Summary ---
Author Author [facility] Address Unknown Phone Unavailable Care Team Providers Care Light Cleaner Name Role Phone Dank Haskins PCP Source Comments Some departments are not documenting in the electronic medical record. If you do not see the information that you expected, contact Release of Information in the Health Information Management department at [phone] for further assistance in locating additional records.[facility] Allergies Active Allergy Reactions Severity Noted Date [...] a right breast biopsy in 1999 at [facility] in [place], [place]. Patient reports pathology was benign. PET [...] IMAGING: Mammogram: -- Right diagnostic mammogram 07/19/15 ([place], [place]) revealed heterogeneously dense breast tissue. Implant was seen. A biopsy clip was present. There were no dominant masses, suspicious calcification or architectural distortion. -- Left diagnostic mammogram 04/18/16 ([place], [place]) revealed scattered fibroglandular density. There was [...] or axillary adenopathy. Other: -- PET/CT 02/15/14 ([place], [place]) Impression: 1. Intense activity accumulation in [...] INFLUENZA VACCINE 03/03/2018 Implants Explanted Type Area Tool Designer Device Expiration Model / Identifier Date Serial / Lot Allergan Breast Implant Style 120 Right: ALLERGAN: 120 / Explanted: Qty: 1 on 10/09/2016 by Breast BREAST IMPLANT N/A / Cesar Ceballos MD [id number] Allergan Breast Implant Style 120 Left: ALLERGAN: 120 / Explanted: Qty: 1 on 10/09/2016 by Breast BREAST IMPLANT N/A / Dev Carson DO [id number] Results Not on filefrom Last 3 Months
[2018-01-14] MEDS ORDERED: VANCOMYCIN INJECTION 1,000 MG in NS (IVPB) 250 ML IV SCH (15:15)
[2018-01-14] MEDS ORDERED: SENNA W/DOCUSATE (SENOKOT S) TABLET PO PRN (15:15)
[2018-01-14] MEDS ORDERED: ALPRAZolam 0.25 MG (XANAX) TAB PO PRN (15:15)
[2018-01-14] MEDS ORDERED: MILK OF MAGNESIA 400 MG/5 ML 30 ML UDC PO PRN (15:15)
[2018-01-14] MEDS ORDERED: diphenhydrAMINE 25 MG TAB (BENADRYL) PO PRN (15:15)
--- OUTSIDE RECORDS SUMMARY | 2018-01-14 15:15 | XMS REPORT | Continuity of Care Document ---
Author Author [facility] Organization [facility] Address Unknown Phone Unavailable Allergies Active Description Code Type Severity Reaction Onset Reported/Identified Relationship to Patient Clinical Status Yes BACTRIM [id number] BRANDNAME N/A N/A Yes No Known Drug Allergies [id number] Drug Allergy Unknown N/A 04/06/2008 Yes No Known Drug Allergies [id number] Drug Allergy Unknown N/A 06/27/2016 Yes mannitol [id number] Drug Allergy Unknown N/A 04/11/2017 Yes water for injection,sterile [id number] Drug Allergy Unknown N/A 2016 Yes zoledronic acid [id number] Drug Allergy Unknown N/A 04/11/2017 Medications There [...] ENCOUNTER FOR ANTINEOPLASTIC CHEMOTHERAP 09/20/2016 XUN MD, NEW-YARY Ot C50.312 MALIG NEOPLASM OF LOWER-INNER QUADRANT [...] 01/23/2017 PALMER RICE MD, Ot Z79.899 OTHER HALF-WAY (CURRENT) DRUG THERAPY 02/14/2017 PALMER RICE MD, Ot C50.312 MALIG NEOPLASM OF LOWER-INNER QUADRANT O 02/14/2017 PALMER RICE MD, Ot C79.51 SECONDARY MALIGNANT NEOPLASM OF BONE 02/14/2017 PALMER RICE MD, Ot D70.2 OTHER DRUG-INDUCED AGRANULOCYTOSIS 02/14/2017 PALMER RICE MD, Ot Z17.0 ESTROGEN RECEPTOR POSITIVE STATUS [ER+] 02/14/2017 PALMER RICE MD, Ot Z78.0 ASYMPTOMATIC MENOPAUSAL STATE 02/14/2017 PALMER RICE MD, Ot Z79.899 OTHER SLEEVE MACHINE TENDER (CURRENT) DRUG THERAPY 02/14/2017 PALMER RICE MD, Ot C50.312 MALIG NEOPLASM OF LOWER-INNER QUADRANT O 02/14/2017 PALMER RICE MD, Ot C79.51 SECONDARY MALIGNANT NEOPLASM OF BONE 02/14/2017 PALMER RICE MD, Ot D70.2 OTHER DRUG-INDUCED AGRANULOCYTOSIS 02/14/2017 PALMER RICE MD, Ot Z17.0 ESTROGEN RECEPTOR POSITIVE STATUS [ER+] 02/14/2017 PALMER RICE MD, Ot Z78.0 ASYMPTOMATIC MENOPAUSAL STATE 02/14/2017 PALMER RICE MD Ot Z79.899 OTHER SLEEVE MACHINE TENDER (CURRENT) DRUG THERAPY 02/18/2017 PALMER RICE MD Ot C50.312 MALIG NEOPLASM OF LOWER-INNER QUADRANT O 02/18/2017 PLAMER RICE MD Ot C79.51 SECONDARY MALIGNANT NEOPLASM OF BONE 02/18/2017 PALMER RICE MD Ot D70.2 OTHER DRUG-INDUCED AGRANULOCYTOSIS 02/18/2017 PALMER RICE MD Ot Z17.0 ESTROGEN RECEPTOR POSITIVE STATUS [ER+] 02/18/2017 PALMER RICE MD Ot Z78.0 ASYMPTOMATIC MENOPAUSAL STATE 02/18/2017 PALMER RICE MD Ot Z79.899 OTHER SLEEVE MACHINE TENDER (CURRENT) DRUG THERAPY 02/22/2017 PALMER RICE MD, Ot C50.312 MALIG NEOPLASM OF LOWER-INNER QUADRANT O 02/22/2017 PALMER RICE MD, Ot C79.51 SECONDARY MALIGNANT NEOPLASM OF BONE 02/22/2017 PALMER RICE MD Ot D70.2 OTHER DRUG-INDUCED AGRANULOCYTOSIS 02/22/2017 PALMER RICE MD Ot Z17.0 ESTROGEN RECEPTOR POSITIVE STATUS [ER+] 02/22/2017 PALMER RICE MD Ot Z78.0 ASYMPTOMATIC MENOPAUSAL STATE 02/22/2017 PALMER RICE MD Ot Z79.899 OTHER HALF-WAY (CURRENT) DRUG THERAPY 02/27/2017 PALMER RICE MD, Ot C50.312 MALIG NEOPLASM OF LOWER-INNER QUADRANT O 02/27/2017 PALMER RICE MD Ot C79.51 SECONDARY MALIGNANT NEOPLASM OF BONE 02/27/2017 PALMER RICE MD Ot D70.2 OTHER DRUG-INDUCED AGRANULOCYTOSIS 02/27/2017 PALMER RICE MD Ot Z17.0 ESTROGEN RECEPTOR POSITIVE STATUS [ER+] 02/27/2017 PALMER RICE MD Ot Z78.0 ASYMPTOMATIC MENOPAUSAL STATE 02/27/2017 PALMER RICE MD Ot Z79.899 OTHER SLEEVE MACHINE TENDER (CURRENT) DRUG THERAPY 03/02/2017 PALMER RICE MD [...] 03/02/2017 PALMER RICE MD, Ot Z79.899 OTHER SLEEVE MACHINE TENDER (CURRENT) DRUG THERAPY 03/07/2017 PALMER RICE MD, Ot C50.312 MALIG NEOPLASM OF LOWER-INNER QUADRANT O 03/07/2017 PALMER RICE MD, Ot C79.51 SECONDARY MALIGNANT NEOPLASM OF BONE 03/07/2017 PALMER RICE MD, Ot Z17.0 ESTROGEN RECEPTOR POSITIVE STATUS [ER+] 03/07/2017 PALMER RICE MD, Ot Z51.0 ENCOUNTER FOR ANTINEOPLASTIC RADIATION T 03/07/2017 PALMER RICE MD, Ot Z51.11 ENCOUNTER FOR ANTINEOPLASTIC CHEMOTHERAP 03/07/2017 PALMER RICE MD, Ot Z78.0 ASYMPTOMATIC MENOPAUSAL STATE 03/07/2017 PALMER RICE MD, Ot Z79.899 OTHER SLEEVE MACHINE TENDER (CURRENT) DRUG THERAPY 03/08/2017 PALMER RICE MD, [...] 03/08/2017 PALMER RICE MD Ot Z79.899 OTHER SLEEVE MACHINE TENDER (CURRENT) DRUG THERAPY 03/12/2017 PALMER RICE MD, Ot C50.312 MALIG NEOPLASM OF LOWER-INNER QUADRANT O 03/12/2017 PALMER RICE MD, Ot C79.51 SECONDARY MALIGNANT NEOPLASM OF BONE 03/12/2017 PALMER RICE MD Ot Z17.0 ESTROGEN RECEPTOR POSITIVE STATUS [ER+] 03/12/2017 PALMER RICE MD Ot Z51.0 ENCOUNTER FOR ANTINEOPLASTIC RADIATION T 03/12/2017 PALEMR RICE MD Ot Z51.11 ENCOUNTER FOR ANTINEOPLASTIC CHEMOTHERAP 03/12/2017 PALMER RICE MD Ot Z78.0 ASYMPTOMATIC MENOPAUSAL STATE 03/12/2017 PALMER RICE MD Ot Z79.899 OTHER HALF-WAY (CURRENT) DRUG THERAPY 03/12/2017 PALMER RICE MD [...] 03/12/2017 PALMER RICE MD Ot Z79.899 OTHER SLEEVE MACHINE TENDER (CURRENT) DRUG THERAPY 03/13/2017 PALMER RICE MD, [...] 03/13/2017 PALMER RICE MD Ot Z79.899 OTHER SLEEVE MACHINE TENDER (CURRENT) DRUG THERAPY 03/18/2017 PALMER RICE MD [...] 03/18/2017 PALMER RICE MD, Ot Z79.899 OTHER HALF-WAY (CURRENT) DRUG THERAPY 03/18/2017 THIERNO LEVINE MD [...] 03/20/2017 PALMER RICE MD, Ot Z79.899 OTHER SLEEVE MACHINE TENDER (CURRENT) DRUG THERAPY 03/29/2017 HUNTER BRAND MD, [...] 04/11/2017 PALMER RICE MD, Ot Z79.899 OTHER SLEEVE MACHINE TENDER (CURRENT) DRUG THERAPY 04/11/2017 PALMER RICE MD, [...] 04/11/2017 PALMER RICE MD, Ot Z79.899 OTHER HALF-WAY (CURRENT) DRUG THERAPY 04/11/2017 MARIA C RIOJAS [...] 04/11/2017 PALMER RICE MD, Ot Z79.899 OTHER SLEEVE MACHINE TENDER (CURRENT) DRUG THERAPY 04/16/2017 MARIA C RIOJAS [...] 05/06/2017 PALMER RICE MD, Ot Z79.899 OTHER SLEEVE MACHINE TENDER (CURRENT) DRUG THERAPY 05/08/2017 APLMER RICE MD, Ot C50.312 MALIG NEOPLASM OF [...] 06/03/2017 PALMER RICE MD Ot Z79.899 OTHER HALF-WAY (CURRENT) DRUG THERAPY 06/20/2017 PALMER RICE MD, [...] 06/20/2017 PALMER RICE MD, Ot Z79.899 OTHER HALF-WAY (CURRENT) DRUG THERAPY 07/10/2017 PALMER RICE MD [...] 07/10/2017 PALMER RICE MD Ot Z79.899 OTHER HALF-WAY (CURRENT) DRUG THERAPY 07/12/2017 PALMER RICE MD, Ot C50.312 MALIG NEOPLASM OF LOWER-INNER QUADRANT O 07/12/2017 PALMER RICE MD Ot C79.51 SECONDARY MALIGNANT NEOPLASM OF BONE 07/12/2017 PALMER RICE MD, Ot Z17.0 ESTROGEN RECEPTOR POSITIVE STATUS [ER+] 07/12/2017 PALMER RICE MD, Ot Z51.11 ENCOUNTER FOR ANTINEOPLASTIC CHEMOTHERAP 07/12/2017 PALMER RICE MD, Ot Z78.0 ASYMPTOMATIC MENOPAUSAL STATE 07/12/2017 PALMER RICE MD, Ot Z79.899 OTHER HALF-WAY (CURRENT) DRUG THERAPY 07/24/2017 PALMER RICE MD, Ot C50.312 MALIG NEOPLASM OF LOWER-INNER QUADRANT O 07/24/2017 PALMER RICE MD, Ot C79.51 SECONDARY MALIGNANT NEOPLASM OF BONE 07/24/2017 PALMER RICE MD, Ot Z17.0 ESTROGEN RECEPTOR POSITIVE STATUS [ER+] 07/24/2017 PALMER RICE MD, Ot Z51.11 ENCOUNTER FOR ANTINEOPLASTIC CHEMOTHERAP 07/24/2017 PALMER RICE MD, Ot Z78.0 ASYMPTOMATIC MENOPAUSAL STATE 07/24/2017 PALMER RICE MD, Ot Z79.899 OTHER HALF-WAY (CURRENT) DRUG THERAPY 08/01/2017 PALMER RICE MD Ot C50.312 MALIG NEOPLASM OF LOWER-INNER QUADRANT O 08/01/2017 PALMER RICE MD, Ot C79.51 SECONDARY MALIGNANT NEOPLASM OF BONE 08/01/2017 PALMER RICE MD, Ot Z17.0 ESTROGEN RECEPTOR POSITIVE STATUS [ER+] 08/01/2017 PALMER RICE MD, Ot Z51.11 ENCOUNTER FOR ANTINEOPLASTIC CHEMOTHERAP 08/01/2017 PALMER RICE MD, Ot Z78.0 ASYMPTOMATIC MENOPAUSAL STATE 08/01/2017 PALMER RICE MD, Ot Z79.899 OTHER HALF-WAY (CURRENT) DRUG THERAPY 08/16/2017 PALMER RICE MD, [...] 09/18/2017 PALMER RICE MD Ot Z79.899 OTHER HALF-WAY (CURRENT) DRUG THERAPY 09/19/2017 PALMER RICE MD, Ot C50.312 MALIG NEOPLASM OF LOWER-INNER QUADRANT O 09/19/2017 PALMER RICE MD Ot C79.51 SECONDARY MALIGNANT NEOPLASM OF BONE 09/19/2017 PALMER RICE MD, Ot Z17.0 ESTROGEN RECEPTOR POSITIVE STATUS [ER+] 09/19/2017 PALMER RICE MD Ot Z51.11 ENCOUNTER FOR ANTINEOPLASTIC CHEMOTHERAP 09/19/2017 PALMER RICE MD Ot Z78.0 ASYMPTOMATIC MENOPAUSAL STATE 09/19/2017 PALMER RICE MD Ot Z79.899 OTHER HALF-WAY (CURRENT) DRUG THERAPY 11/13/2017 PALMER RICE MD, Ot C50.312 MALIG NEOPLASM OF LOWER-INNER QUADRANT O 11/13/2017 PALMER RICE MD Ot C79.51 SECONDARY MALIGNANT NEOPLASM OF BONE 11/13/2017 PALMER RICE MD, Ot Z17.0 ESTROGEN RECEPTOR POSITIVE STATUS [ER+] 11/13/2017 PALMER RICE MD, Ot Z51.11 ENCOUNTER FOR ANTINEOPLASTIC CHEMOTHERAP 11/13/2017 PALMER RICE MD, Ot Z78.0 ASYMPTOMATIC MENOPAUSAL STATE 11/13/2017 PALMER RICE MD, Ot Z79.899 OTHER SLEEVE MACHINE TENDER (CURRENT) DRUG THERAPY 11/20/2017 PALMER RICE MD, Ot C50.312 MALIG NEOPLASM OF LOWER-INNER QUADRANT O 11/20/2017 PALMER RICE MD, Ot C78.7 SECONDARY MALIG NEOPLASM OF LIVER AND IN 11/20/2017 PALMER RICE MD, Ot C79.51 SECONDARY MALIGNANT NEOPLASM OF BONE 11/20/2017 PALMER RICE MD Ot J90 PLEURAL EFFUSION, NOT ELSEWHERE CLASSIFI 11/20/2017 PALMER RICE MD, Ot R59.0 LOCALIZED ENLARGED LYMPH NODES 11/20/2017 PALMER RICE MD Ot R91.8 OTHER NONSPECIFIC ABNORMAL FINDING OF [place] 11/27/2017 PALMER RICE MD, Ot C50.312 MALIG NEOPLASM OF LOWER-INNER QUADRANT O 11/27/2017 PALMER RICE MD, Ot C79.51 SECONDARY MALIGNANT NEOPLASM OF BONE 11/27/2017 PALMER RICE MD Ot Z17.0 ESTROGEN RECEPTOR POSITIVE STATUS [ER+] 11/27/2017 PALMER RICE MD, Ot Z78.0 ASYMPTOMATIC MENOPAUSAL STATE 11/27/2017 PALMER RICE MD, Ot Z79.899 OTHER HALF-WAY (CURRENT) DRUG THERAPY 12/03/2017 PALMER RICE MD, Ot C50.312 MALIG NEOPLASM OF LOWER-INNER QUADRANT O 12/03/2017 PALMER RICE MD, Ot C78.7 SECONDARY MALIG NEOPLASM OF LIVER AND IN 12/03/2017 PALMER RICE MD, Ot C79.51 SECONDARY MALIGNANT NEOPLASM OF BONE 12/03/2017 PALMER RICE MD Ot J90 PLEURAL EFFUSION, NOT ELSEWHERE CLASSIFI 12/03/2017 PALMER RICE MD Ot R59.0 LOCALIZED ENLARGED LYMPH NODES 12/03/2017 PALMER RICE MD Ot R91.8 OTHER NONSPECIFIC ABNORMAL FINDING OF [place] 12/26/2017 S [id number] Malignant neoplasm of lower-inner quadrant of left female breast 12/26/2017 S C7951 Secondary malignant neoplasm of bone 12/26/2017 P I890 Lymphedema, not elsewhere classified Procedures There is no data. Results Test [...] culture - 03/25/17 18:32 Bacterial urine culture [id number] NRG COLONY COUNT >100,000/ML NR FTX;REPORTABLE SENSITIVITY REPORTED 03/26 16:00 NR FREE TEXT ENTRY 3 MIXED GRAM POSITIVE TIFFANIE [facility] Bacterial susceptibility panel - [...] susceptibility test by minimum inhibitory concentration - [facility] Influenza virus A and B antigen detection - 03/25/17 19:50 FLU RESULT NEGATIVE FOR INFLUENZA A AND B ANTIGENS BY IA [facility] Comprehensive metabolic panel - [...] NRG RESULTS INDETERMINANT; MOLECULAR TEST TO FOLLOW NR Clostridium difficile detection - 03/26/17 21:35 Complete [...] - 04/11/17 15:05 Bacterial blood culture NG NRG C DIFFICILE AG + TOXIN A/B. - [...] culture - 04/11/17 15:28 Bacterial urine culture [id number] NRG COLONY COUNT >100,000/ML NRG FTX;REPORTABLE SENSITIVITY REPORTED AT 1610, 04-12-17 NRG Bacterial susceptibility panel - 04/11/17 15:28 Gentamicin [...] CELLS LEUKO REDUCED AS1 TRANSFUSED 04/17/17 1431 [facility] Blood type T Indirect antibody screen panel - 04/17/17 13:00 ABO+Rh group ON NRG Transfusion band number [id number] [facility] Blood group antibody screen NEGATIVE [facility] Complete blood count (CBC) with automated white [...] plasma calcium measurement (mass/volume) 8.6 mg/dL 8.5-10.1 Complete urinalysis with reflex to culture - 01/06/18 21:29 Urine color determination YELLOW NRG Urine clarity [...] urine sediment by light microscopy NONE NRG Squamous epithelial cells detection in urine sediment by light microscopy 0-2 NRG Crystals detection in urine sediment by light microscopy NONE NRG Casts detection in urine sediment by light microscopy NONE NRG Mucus detection in urine sediment by light microscopy NEGATIVE NRG Complete urinalysis with reflex to culture NO NRG Complete blood count (CBC) with automated white blood cell (WBC) differential - 01/06/18 21:39 Blood leukocytes automated count (number/volume) 5.4 10*3/uL 4.3-11.0 Blood erythrocytes automated count (number/volume) 3.57 10*6/uL 4.35-5.85 Venous blood hemoglobin measurement (mass/volume) 11.3 g/dL 11.5-16.0 Blood hematocrit (volume fraction) 35 % 35-52 Automated erythrocyte mean corpuscular volume 97 [foz_us] 80-99 Automated erythrocyte mean corpuscular hemoglobin (mass per erythrocyte) 32 pg 25-34 Automated erythrocyte mean corpuscular hemoglobin concentration measurement ( mass/volume) 33 g/dL 32-36 Automated erythrocyte distribution width ratio 17.0 % 10.0-14.5 Automated blood platelet count (count/volume) 219 10*3/uL 130-400 Automated blood platelet mean volume measurement 9.1 [foz_us] 7.4-10.4 Automated blood neutrophils/100 leukocytes 73 % 42-75 Automated blood lymphocytes/100 leukocytes 9 % 12-44 Blood monocytes/100 leukocytes 16 % 0-12 Automated blood eosinophils/100 leukocytes 2 % 0-10 Automated blood basophils/100 leukocytes 1 % 0-10 Blood neutrophils automated count (number/volume) 3.9 10*3 1.8-7.8 Blood lymphocytes automated count (number/volume) 0.5 10*3 1.0-4.0 Blood monocytes automated count (number/volume) 0.9 10*3 0.0-1.0 Automated eosinophil count 0.1 10*3/uL 0.0-0.3 Automated blood basophil count (count/volume) 0.0 10*3/uL 0.0-0.1 Blood lactic acid measurement (moles/volume) - 01/06/18 21:39 Blood lactic acid measurement (moles/volume) 1.36 mmol/L 0.50-2.00 Comprehensive metabolic panel - 01/06/18 21:39 Serum or plasma sodium measurement (moles/volume) 133 mmol/L 135-145 Serum or plasma potassium measurement (moles/volume) 4.3 mmol/L 3.6-5.0 Serum or plasma chloride measurement (moles/volume) 103 mmol/L 98-107 Carbon dioxide 22 mmol/L 21-32 Serum or plasma anion gap determination (moles/volume) 8 mmol/L 5-14 Serum or plasma urea nitrogen measurement (mass/volume) 18 mg/dL 7-18 Serum or plasma creatinine measurement (mass/volume) 0.75 mg/dL 0.60-1.30 Serum or plasma urea nitrogen/creatinine mass ratio 24 NRG Serum or plasma creatinine measurement with calculation of estimated glomerular filtration rate > NRG Serum or plasma glucose measurement (mass/volume) 71 mg/dL 70-105 Serum or plasma calcium measurement (mass/volume) 9.0 mg/dL 8.5-10.1 Serum or plasma total bilirubin measurement (mass/volume) 0.9 mg/dL 0.1-1.0 Serum or plasma alkaline phosphatase measurement (enzymatic activity/volume) 182 U/L 40-136 Serum or plasma aspartate aminotransferase measurement (enzymatic activity/ volume) 164 U/L 5-34 Serum or plasma alanine aminotransferase measurement (enzymatic activity/volume ) 59 U/L 0-55 Serum or plasma protein measurement (mass/volume) 8.2 g/dL 6.4-8.2 Serum or plasma albumin measurement (mass/volume) 3.2 g/dL 3.2-4.5 Magnesium - 01/06/18 21:39 Magnesium 1.7 mg/dL 1.8-2.4 Bacterial blood culture - 01/06/18 21:39 Bacterial blood culture NG NRG Bacterial blood culture - 01/06/18 22:08 Bacterial blood culture NG NRG Gram stain microscopy - 01/06/18 22:54 Gram stain microscopy Few Gram positive bacilli NRG Bacteria identification in wound by culture - 01/06/18 22:54 Bacteria identification in wound by culture [facility] NR FREE TEXT EXTERNAL FEW NRG QUANTITY OF GROWTH . NR FREE TEXT ENTRY 2 [facility] Sensitivity Panel - 01/06/18 22:54 Oxacillin susceptibility test by minimum inhibitory concentration S NRG Clindamycin susceptibility test by minimum inhibitory concentration <= NRG Erythromycin susceptibility test by minimum inhibitory concentration <= NRG Trimethoprim/sulfamethoxazole susceptibility test by minimum inhibitoryconcentration S NRG Vancomycin susceptibility test by minimum inhibitory concentration 1 NRG Levofloxacin susceptibility test by minimum inhibitory concentration <= NRG Rifampin susceptibility test by minimum inhibitory concentration <= NRG Cefazolin susceptibility test by minimum inhibitory concentration < = NRG Linezolid susceptibility test by minimum inhibitory concentration 2 NRG Penicillin G susceptibility test by minimum inhibitory concentration > NRG Minocycline susc LIZZY <= NRG Complete blood count (CBC) with automated white blood cell (WBC) differential - 01/07/18 05:20 Blood leukocytes automated count (number/volume) 4.1 10*3/uL 4.3-11.0 Blood erythrocytes automated count (number/volume) 3.31 10*6/uL 4.35-5.85 Venous blood hemoglobin measurement (mass/volume) 10.5 g/dL 11.5-16.0 Blood hematocrit (volume fraction) 32 % 35-52 Automated erythrocyte mean corpuscular volume 97 [foz_us] 80-99 Automated erythrocyte mean corpuscular hemoglobin (mass per erythrocyte) 32 pg 25-34 Automated erythrocyte mean corpuscular hemoglobin concentration measurement ( mass/volume) 33 g/dL 32-36 Automated erythrocyte distribution width ratio 17.0 % 10.0-14.5 Automated blood platelet count (count/volume) 196 10*3/uL 130-400 Automated blood platelet mean volume measurement 8.9 [foz_us] 7.4-10.4 Automated blood neutrophils/100 leukocytes 70 % 42-75 Automated blood lymphocytes/100 leukocytes 12 % 12-44 Blood monocytes/100 leukocytes 17 % 0-12 Automated blood eosinophils/100 leukocytes 2 % 0-10 Automated blood basophils/100 leukocytes 0 % 0-10 Blood neutrophils automated count (number/volume) 2.9 10*3 1.8-7.8 Blood lymphocytes automated count (number/volume) 0.5 10*3 1.0-4.0 Blood monocytes automated count (number/volume) 0.7 10*3 0.0-1.0 Automated eosinophil count 0.1 10*3/uL 0.0-0.3 Automated blood basophil count (count/volume) 0.0 10*3/uL 0.0-0.1 Comprehensive metabolic panel - 01/07/18 05:20 Serum or plasma sodium measurement (moles/volume) 137 mmol/L 135-145 Serum or plasma potassium measurement (moles/volume) 3.7 mmol/L 3.6-5.0 Serum or plasma chloride measurement (moles/volume) 106 mmol/L 98-107 Carbon dioxide 24 mmol/L 21-32 Serum or plasma anion gap determination (moles/volume) 7 mmol/L 5-14 Serum or plasma urea nitrogen measurement (mass/volume) 16 mg/dL 7-18 Serum or plasma creatinine measurement (mass/volume) 0.82 mg/dL 0.60-1.30 Serum or plasma urea nitrogen/creatinine mass ratio 20 NRG Serum or plasma creatinine measurement with calculation of estimated glomerular filtration rate > NRG Serum or plasma glucose measurement (mass/volume) 83 mg/dL 70-105 Serum or plasma calcium measurement (mass/volume) 8.6 mg/dL 8.5-10.1 Serum or plasma total bilirubin measurement (mass/volume) 0.9 mg/dL 0.1-1.0 Serum or plasma alkaline phosphatase measurement (enzymatic activity/volume) 160 U/L 40-136 Serum or plasma aspartate aminotransferase measurement (enzymatic activity/ volume) 145 U/L 5-34 Serum or plasma alanine aminotransferase measurement (enzymatic activity/volume ) 51 U/L 0-55 Serum or plasma protein measurement (mass/volume) 7.3 g/dL 6.4-8.2 Serum or plasma albumin measurement (mass/volume) 2.9 g/dL 3.2-4.5 Complete blood count (CBC) with automated white blood cell (WBC) differential - 01/08/18 08:50 Blood leukocytes automated count (number/volume) 3.3 10*3/uL 4.3-11.0 Blood erythrocytes automated count (number/volume) 3.24 10*6/uL 4.35-5.85 Venous blood hemoglobin measurement (mass/volume) 10.5 g/dL 11.5-16.0 Blood hematocrit (volume fraction) 32 % 35-52 Automated erythrocyte mean corpuscular volume 98 [foz_us] 80-99 Automated erythrocyte mean corpuscular hemoglobin (mass per erythrocyte) 32 pg 25-34 Automated erythrocyte mean corpuscular hemoglobin concentration measurement ( mass/volume) 33 g/dL 32-36 Automated erythrocyte distribution width ratio 17.1 % 10.0-14.5 Automated blood platelet count (count/volume) 179 10*3/uL 130-400 Automated blood platelet mean volume measurement 8.9 [foz_us] 7.4-10.4 Automated blood neutrophils/100 leukocytes 74 % 42-75 Automated blood lymphocytes/100 leukocytes 8 % 12-44 Blood monocytes/100 leukocytes 17 % 0-12 Automated blood eosinophils/100 leukocytes 2 % 0-10 Automated blood basophils/100 leukocytes 0 % 0-10 Blood neutrophils automated count (number/volume) 2.4 10*3 1.8-7.8 Blood lymphocytes automated count (number/volume) 0.3 10*3 1.0-4.0 Blood monocytes automated count (number/volume) 0.6 10*3 0.0-1.0 Automated eosinophil count 0.1 10*3/uL 0.0-0.3 Automated blood basophil count (count/volume) 0.0 10*3/uL 0.0-0.1 Whole blood basic metabolic panel - 01/08/18 08:50 Serum or plasma sodium measurement (moles/volume) 135 mmol/L 135-145 Serum or plasma potassium measurement (moles/volume) 3.3 mmol/L 3.6-5.0 Serum or plasma chloride measurement (moles/volume) 102 mmol/L 98-107 Carbon dioxide 23 mmol/L 21-32 Serum or plasma anion gap determination (moles/volume) 10 mmol/L 5-14 Serum or plasma urea nitrogen measurement (mass/volume) 13 mg/dL 7-18 Serum or plasma creatinine measurement (mass/volume) 0.85 mg/dL 0.60-1.30 Serum or plasma urea nitrogen/creatinine mass ratio 15 NRG Serum or plasma creatinine measurement with calculation of estimated glomerular filtration rate > NRG Serum or plasma glucose measurement (mass/volume) 82 mg/dL 70-105 Serum or plasma calcium measurement (mass/volume) 8.7 mg/dL 8.5-10.1 Encounters ACCT No. Visit Date/Time Discharge Status Pt. Type Provider Facility Loc./Unit Complaint [id number] 05/09/2017 12:17:40 05/09/2017 23:59:59 CLS Outpatient Lisbeth Diehl [id number] 04/02/2017 12:04:50 04/02/2017 23:59:59 CLS Outpatient Lisbeth Diehl [id number] 02/27/2017 14:31:21 02/27/2017 23:59:59 CLS Outpatient Julio Duenas [id number] 02/26/2017 10:37:25 02/26/2017 23:59:59 CLS Outpatient Julio Duenas [id number] 12/21/2016 09:30:58 12/21/2016 23:59:59 CLS Outpatient Julio Duenas [id number] 07/26/2015 15:33:46 07/26/2015 23:59:59 CLS Outpatient Domi Shields [id number] 03/10/2014 09:53:01 03/10/2014 23:59:59 CLS Outpatient Julio Duenas [id number] 02/05/2014 09:43:42 02/05/2014 23:59:59 CLS Outpatient Julio Duenas [id number] 05/28/2013 09:43:10 05/28/2013 23:59:59 CLS Outpatient Caro Dale [id number] 12/25/2017 09:43:29 Document Registration [id number] 09/16/2017 11:29:27 Document Registration [id number] 04/08/2017 09:48:02 Document Registration [id number] 02/25/2017 08:55:40 Document Registration [id number] 02/06/2017 14:33:39 Document Registration [id number] 12/03/2017 09:15:00 12/03/2017 23:59:59 CLS Outpatient PALMER RICE MD [facility] ONC [id number] 11/19/2017 07:52:00 11/19/2017 23:59:59 CLS Outpatient PALMER RICE MD [facility] RAD BREAST CANCER [id number] 09/16/2017 09:29:00 09/18/2017 00:01:00 DIS Outpatient PALMER RICE MD [facility] ONC [id number] 08/15/2017 11:14:00 08/15/2017 23:59:59 CLS Outpatient PALMER RICE MD [facility] RAD C79.51 BONE METASTASIS [id number] 05/30/2017 14:15:00 06/03/2017 00:01:00 DIS Outpatient PALMER RICE MD [facility] ONC [id number] 04/29/2017 09:33:00 04/29/2017 23:59:59 CLS Outpatient PALMER RICE MD [facility] RAD C50.312,C79.51 [id number] 04/14/2017 09:56:00 04/18/2017 12:45:00 DIS Inpatient RUBIO LISA, GABBIE Umaña [facility] 4TH C DIFF, DIARRHEA [id number] 04/11/2017 14:16:00 04/11/2017 17:34:00 DIS Emergency MARIA C RIOJAS APRN [facility] ER FEVER DIARRHEA [id number] 03/25/2017 19:46:00 03/29/2017 11:45:00 DIS Inpatient SUNDAY LISA, HUNTER Cespedes [facility] 4TH HYPOVOLEMIA,UTI, METASTATIC CANCER [id number] 03/18/2017 11:50:00 03/18/2017 15:30:00 DIS Emergency ABNER LISA, THIERNO Sheth [facility] ER CAN'T PEE [id number] 02/27/2017 09:24:00 03/02/2017 00:01:00 DIS Outpatient PALMER RICE MD [facility] ONC [id number] 01/17/2017 10:35:00 02/14/2017 11:15:00 DIS Outpatient PALMER RICE MD [facility] PAR [id number] 12/13/2016 08:45:00 12/19/2016 00:01:00 DIS Outpatient PALMER RICE MD [facility] PAR [id number] 09/06/2016 09:33:00 09/19/2016 00:01:00 DIS Outpatient PALMER RICE MD [facility] PAR [id number] 08/10/2013 07:05:00 08/10/2013 23:59:59 CLS Outpatient [id number] 01/08/2018 10:11:00 Document Registration [id number] 06/28/2016 14:41:00 06/28/2016 23:59:59 CLS Outpatient KRYSTAL LISA, PALMER [facility] PAR
--- NOTE | 2018-01-14 15:35 | Oncology History & Physical ---
Visit Information Visit Information Date of Admission Jan 14, 2018 at 14:30 Attending Physician Matthew Rice MD Admitting Physician Cas Rice Chief Complaint fever, wound drainage, breast cancer Interval History Ms. Hope is a 62 year old white female known to me for her stage IV breast cancer, s/p multiple lines of chemotherapy and radiation therapy. She called cancer center today and complaining of fever, pain all overall and wound drainage from the right breast lesion. She is also not able to eat or drink much for the last few days. She was treated at [facility] in [place] with Xeloda 500mg bid and stopped last week while she was having wound infection required hospitalization and IV antibiotics. She rated her pain 7-8/10 now and she has been taking Oxycodone 5mg q 2-4 hrs since yesterday. I consulted the patient on: 01/14/18 15:28 Time Seen by Provider: 14:30 Constitutional: chills, fever, malaise, weakness Respiratory: cough, dyspnea on exertion Cardiovascular: palpitations Gastrointestinal: constipation Genitourinary: hesitancy Musculoskeletal: muscle pain, muscle stiffness Health Status Allergies Coded Allergies: mannitol (Unverified Adverse Reaction, Unknown, 04/11/17) water for injection,sterile (Unverified Adverse Reaction, Unknown, 04/11/17 ) zoledronic acid (Unverified Adverse Reaction, Unknown, 04/11/17) Home Medications Amoxicillin/Potassium Clav (Augmentin 875-125 Tablet) 1 Each Tablet, 1 EACH PO BID, #10 Prescribed by: GABBIE BERGERON on 01/09/18 1102 Capecitabine (Capecitabine) 500 Mg Tablet, 500 MG PO BID, (Reported) Dronabinol (Dronabinol) 2.5 Mg Capsule, 2.5 MG PO HS, (Reported) L. Acidophilus/Bulgaricus (Lactinex Chewable Tablet) 1 Each Tab.chew, 1 TAB.CHEW PO HS, (Reported) Lidocaine HCl (Lidocaine HCl Viscous) 15 Ml Solution, PO UD PRN for MOUTH SORES, (Reported) Lidocaine HCl (Lidocaine) 35 Gm Oint, TOP BID PRN for PAIN, (Reported) Ondansetron HCl (Ondansetron HCl) 8 Mg Tablet, 8 MG PO Q8H PRN for NAUSEA/ VOMITING-1ST LINE, (Reported) Polyethylene Glycol 3350 (Miralax) 17 Gm Powd.pack, 17 GM PO DAILY PRN for CONSTIPATION-2ND LINE, (Reported) Prochlorperazine Maleate (Prochlorperazine Maleate) 10 Mg Tablet, 1 TAB PO Q4H PRN for NAUSEA/VOMITING-4TH LINE, (Reported) Pyridoxine HCl (Vitamin B-6) 100 Mg Tablet, 100 MG PO DAILY, (Reported) [Oxycodone Hcl] 5 MG TAB, 5 MG PO Q4H PRN for PAIN-SEVERE, #30 Prescribed by: GABBIE BERGERON on 01/09/18 1102 [id number] Hx Patient Social History Type Used: Cigarettes Recent Hopitalizations: No Immunizations Up To Date Tetanus Booster (TDap): Unknown Family Medical History Significant Family History: No Pertinent Family Hx Family History: Patient reports no known family medical history. Physical Exam Vital Signs Capillary Refill : Height, Weight, BMI Height: 5'9.00" Weight: 134lbs. 7.0oz. 60.620009hh; 19.6 BMI Method:Stated General Appearance: Anxious, Chronically ill, Thin HEENT: PERRL/EOMI Neck: Non Tender, Supple Respiratory: Lungs Clear, No Accessory Muscle Use, No Respiratory Distress Cardiovascular: Regular Rate, Rhythm, No Edema, Tachycardia Gastrointestinal: Non Tender, Soft Extremity: Other (left lower ext chronic lymphoedema from previous radiation) Neurologic/Psychiatric: Alert, Oriented x3 Impression & Plan Impression & Plan IMP: 1. Fever, 2. Wound infection/cellulitis of the right chest from breast cancer. 3. Dehydration 4. Stage IV breast cancer with extensive bone and liver and lung mets, s/p multiple lines of the chemotherapy and radiation 5. h/o recent wound infection of Stagh A 6. Pain control 7. h/o C.Diff colitis in the past 8. SOB on exertion, cough but not able to bring up sputum. Plan: 1. IV Vancomycin 2 IVF 3. Blood and urine culture 4. Start long acting pain meds OxyContin and short acting Oxycodone breakthrough 5. Respiratory consult for NEB treatment and O2. 6. Anticipate 2-3 days of hospital stay. Diagnosis Admission Status: Inpatient Order (span 2 midnights) Reason for Inpatient Admission: IV antibiotics and pain control MATTHEW RICE MD Jan 14, 2018 15:35
[2018-01-14] MEDS ORDERED: OXYC-529 PO (15:40)
[2018-01-14] MEDS ORDERED: VANCOMYCIN 1250 MG/NS 250 ML IVPB IV NR ×2 (16:00)
[2018-01-14] MEDS: NS IV 1000 ML 1,000 ML IV SCH (16:01)
[2018-01-14] MEDS ORDERED: RT-ALBUTEROL/IPRATROPIUM 3 ML (DUONEB) VIAL INH PRN (16:30)
[2018-01-14] MEDS: RT-ALBUTEROL/IPRATROPIUM 3 ML (DUONEB) VIAL INH SCH (19:18)
[2018-01-14 19:20] VITALS: BP 126/54
[2018-01-14] MEDS: oxyCODONE ER 15 MG (oxyCONTIN CR) TAB PO SCH (20:01)
[2018-01-14] MEDS: ONDANSETRON 4 MG/2 ML (SDV) Z0FRAN IV PRN (22:18)
[2018-01-14] MEDS: ACETAMINOPHEN 325 MG TABLET PO PRN (22:19)
[2018-01-15 00:13] VITALS: BP 116/60
[2018-01-15] MEDS: NS IV 1000 ML 1,000 ML IV SCH ×3 (01:54→23:32)
[2018-01-15] MEDS: VANCOMYCIN 1 GM/NS 250 ML IVPB IV SCH ×4 (05:25→16:38)
[2018-01-15] MEDS: IBUPROFEN TABLET 200 MG TAB PO PRN (05:33)
[2018-01-15] MEDS: ACETAMINOPHEN 325 MG TABLET PO PRN (06:31)
[2018-01-15 07:53] LABS: BILIRUBIN,URINE NEGATIVE (NEGATIVE); CLARITY,URINE CLEAR; COLOR,URINE YELLOW; GLUCOSE, URINE (UA) NEGATIVE (NEGATIVE); KETONES,URINE NEGATIVE (NEGATIVE); LEUKOCYTE ESTERASE ,URINE NEGATIVE (NEGATIVE); NITRITE,URINE NEGATIVE (NEGATIVE); PH,URINE 5 (5-9); PROTEIN,URINE NEGATIVE (NEGATIVE); UROBILINOGEN,URINE NORMAL (NORMAL)
[2018-01-15 08:08] LABS: BACTERIA,URINE NEGATIVE /HPF; HYALINE CASTS, URINE RARE /LPF; SQUAMOUS EPITHELIAL CELL,UR RARE /HPF; WBC,URINE RARE /HPF
[2018-01-15] MEDS: oxyCODONE ER 15 MG (oxyCONTIN CR) TAB PO SCH ×2 (08:48→21:23)
[2018-01-15 09:00] VITALS: BP 107/56
[2018-01-15] MEDS: RT-ALBUTEROL/IPRATROPIUM 3 ML (DUONEB) VIAL INH SCH ×3 (09:03→20:22)
--- NOTE | 2018-01-15 13:11 | Physician Progress Note ---
Progress Note Assessment/Plan Time Seen by Provider: 11:30 Events since last exam Pt had fever spike 103 last night. However, she is feeling better this morning. Pain is under better control since Oxycontin Assessment/Plan IMP: 1. Fever, blood culture negative so far. UA unremarkable. 2. Wound infection/cellulitis of the right chest from breast cancer. 3. Dehydration 4. Stage IV breast cancer with extensive bone and liver and lung mets, s/p multiple lines of the chemotherapy and radiation 5. h/o recent wound infection of Stagh A 6. Pain control 7. h/o C.Diff colitis in the past 8. SOB on exertion, cough but not able to bring up sputum. Plan: 1. IV Vancomycin. If still spike fever, then another IV antibiotics, cefepime or clindamycin. NO levaquine due to liver mets and elevated LFTs. 2 IVF 3. Probiotics to prevent C. Diff 4. Continue long acting pain meds OxyContin and short acting Oxycodone breakthrough 5. Respiratory consult for NEB treatment and O2. 6. Anticipate 2-3 days of hospital stay. Vitals Last set of Vitals Signs Vital Signs Date Time Temp Pulse Resp B/P (MAP) Pulse Ox O2 Delivery O2 Flow Rate FiO2 01/15/18 09:00 100.6 78 18 107/56 (73) 94 Nasal Cannula 2.00 I&O I&O Intake and Output 01/15/18 00:00 Intake Total 562.5 ml Balance 562.5 ml Intake Oral 300 ml IV Total 262.5 ml # Voids 1 # Emeses 1 Daily Weight Change No Clinical Quality Measures DVT/VTE Risk/Contraindication: Risk Factor Score Per Nursin RFS Level Per Nursing on Admit: 4+=Very High PALMER RICE MD Jan 15, 2018 1:11 pm
[2018-01-15] MEDS: LACTOBACILLUS Acidoph/Bulgar (LACTINEX/FLORANEX) TAB PO SCH (16:38)
[2018-01-15] MEDS: ONDANSETRON 4 MG/2 ML (SDV) Z0FRAN IV PRN (18:21)
[2018-01-15 20:00] VITALS: BP 114/62
[2018-01-16] MEDS ORDERED: TROUGH ORDER-PHARMACY XX NR (04:00)
[2018-01-16 04:28] LABS: BUN/CREATININE RATIO 16; CALCIUM 7.7 MG/DL (8.5-10.1); CARBON DIOXIDE 20 MMOL/L (21-32); CHLORIDE 106 MMOL/L (98-107); CREATININE SERUM 0.63 MG/DL (0.60-1.30); GFR ESTIMATED > 60; POTASSIUM 4.3 MMOL/L (3.6-5.0); SODIUM 134 MMOL/L (135-145)
[2018-01-16 04:31] LABS: GLUCOSE 59 MG/DL (70-105)
[2018-01-16 04:38] LABS: VANCOMYCIN,TROUGH 13.3 UG/ML (10.0-20.0)
[2018-01-16] MEDS: ACETAMINOPHEN 325 MG TABLET PO PRN (04:45)
[2018-01-16] MEDS: VANCOMYCIN 1 GM/NS 250 ML IVPB IV SCH ×4 (05:23→17:02)
[2018-01-16] MEDS: LACTOBACILLUS Acidoph/Bulgar (LACTINEX/FLORANEX) TAB PO SCH ×3 (05:24→16:11)
[2018-01-16] MEDS: RT-ALBUTEROL/IPRATROPIUM 3 ML (DUONEB) VIAL INH SCH ×2 (06:42→19:26)
[2018-01-16] MEDS: NS IV 1000 ML 1,000 ML IV SCH ×2 (08:12→09:14)
[2018-01-16 09:00] VITALS: BP 94/63
[2018-01-16] MEDS: oxyCODONE ER 15 MG (oxyCONTIN CR) TAB PO SCH ×2 (09:11→20:47)
[2018-01-16] MEDS: ONDANSETRON 4 MG/2 ML (SDV) Z0FRAN IV PRN (09:14)
[2018-01-16] MEDS ORDERED: CEFEPIME INJECTION 1,000 MG in NS (IVPB) 50 ML IV SCH (10:00)
--- NOTE | 2018-01-16 11:52 | Physician Progress Note ---
Progress Note Assessment/Plan Date Seen by Provider: Jan 16, 2018 Time Seen by Provider: 11:30 Events since last exam spike fever 101 last night dry cough and vomited once last night IV Cefepime was added this morning. Pt is feeling better now Right chest lesions slightly better Assessment/Plan IMP: 1. Fever, blood culture negative so far. UA unremarkable. 2. Wound infection/cellulitis of the right chest from breast cancer. 3. Dehydration 4. Stage IV breast cancer with extensive bone and liver and lung mets, s/p multiple lines of the chemotherapy and radiation 5. h/o recent wound infection of Stagh A 6. Pain control 7. h/o C.Diff colitis in the past 8. SOB on exertion, cough but not able to bring up sputum. Plan: 1. IV Vancomycin, add IV antibiotics cefepime today. NO levaquine due to liver mets and elevated LFTs. 2 IVF change to D5 with 10meq KCL 3. Probiotics to prevent C. Diff 4. Continue long acting pain meds OxyContin and short acting Oxycodone breakthrough 5. Respiratory consult for NEB treatment and O2. 6. Anticipate discharge home tomorrow if no more fever 7. Protonix . Vitals Last set of Vitals Signs Vital Signs Date Time Temp Pulse Resp B/P (MAP) Pulse Ox O2 Delivery O2 Flow Rate FiO2 01/16/18 09:00 97.7 75 20 94/63 (73) 95 Nasal Cannula 2.00 I&O I&O Intake and Output 01/16/18 00:00 Intake Total 4090 ml Output Total 1150 ml Balance 2940 ml Intake Oral 1840 ml IV Total 2250 ml Output Urine Total 900 ml Emesis 250 ml # Voids 1 Labs Laboratory Tests 01/16/18 04:00: Sodium Level 134L, Potassium Level 4.3, Chloride Level 106, Carbon Dioxide Level 20L, Anion Gap 8, Blood Urea Nitrogen 10, Creatinine 0.63, Estimat Glomerular Filtration Rate > 60, BUN/Creatinine Ratio 16, Glucose Level 59*L, Calcium Level 7.7L, Vancomycin Level Trough 13.3 Microbiology 01/14/18 Blood Culture - Preliminary, Resulted No growth Clinical Quality Measures DVT/VTE Risk/Contraindication: Risk Factor Score Per Nursin RFS Level Per Nursing on Admit: 4+=Very High PALMER RICE MD Jan 16, 2018 11:52
[2018-01-16] MEDS: PANTOPRAZOLE 40 MG (PROTONIX) TAB PO SCH (12:39)
[2018-01-16] MEDS: D5 1/2 NS W/KCL 10 MEQ/L 1,000 ML IV SCH ×2 (12:39→23:57)
[2018-01-16] MEDS: IBUPROFEN TABLET 200 MG TAB PO PRN (16:11)
[2018-01-16 20:30] VITALS: BP 94/48
[2018-01-17] MEDS: VANCOMYCIN 1 GM/NS 250 ML IVPB IV SCH ×4 (04:55→17:21)
[2018-01-17] MEDS: LACTOBACILLUS Acidoph/Bulgar (LACTINEX/FLORANEX) TAB PO SCH ×3 (06:10→17:20)
[2018-01-17] MEDS: PANTOPRAZOLE 40 MG (PROTONIX) TAB PO SCH (06:10)
[2018-01-17] MEDS: RT-ALBUTEROL/IPRATROPIUM 3 ML (DUONEB) VIAL INH SCH ×2 (08:12→19:26)
[2018-01-17 08:18] VITALS: BP 112/52
[2018-01-17] MEDS: CEFEPIME INJECTION 1,000 MG in NS (IVPB) 50 ML IV SCH ×2 (08:35→21:09)
[2018-01-17] MEDS: oxyCODONE ER 15 MG (oxyCONTIN CR) TAB PO SCH ×2 (08:35→21:21)
[2018-01-17] MEDS: D5 1/2 NS W/KCL 10 MEQ/L 1,000 ML IV SCH (08:35)
--- NOTE | 2018-01-17 13:15 | Physician Progress Note ---
Progress Note Assessment/Plan Date Seen by Provider: Jan 17, 2018 Time Seen by Provider: 13:00 Events since last exam The wound of the right breast still bleeding and has green drainage No fever over last 24 hrs Nausea and vomiting better complaints of constipation Pain is under good control under pain meds Exam: Lesion over the right breast bleeding and drainage with green pus. Left lower ext swelling but not red, no tenderness Assessment/Plan IMP: 1. Fever, blood culture negative so far. UA unremarkable. 2. Wound infection/cellulitis of the right chest from breast cancer, still bleeding and green drainage. 3. Dehydration, resolved. 4. Stage IV breast cancer with extensive bone and liver and lung mets, s/p multiple lines of the chemotherapy and radiation 5. h/o recent wound infection of Stagh A 6. Pain control 7. h/o C.Diff colitis in the past 8. SOB on exertion, cough but not able to bring up sputum. Plan: 1. Continue IV Vancomycin and IV cefepime for 3 more days. NO levaquine due to liver mets and elevated LFTs. 2 Stop IVF 3. Probiotics to prevent C. Diff 4. Continue long acting pain meds OxyContin and short acting Oxycodone breakthrough 5. Respiratory consult for NEB treatment and O2. 6. MiraLax for constipation 7. Protonix . Vitals Last set of Vitals Signs Vital Signs Date Time Temp Pulse Resp B/P (MAP) Pulse Ox O2 Delivery O2 Flow Rate FiO2 01/17/18 11:53 98.7 01/17/18 08:18 74 20 112/52 (72) 97 Room Air 01/16/18 09:00 2.00 I&O I&O Intake and Output 01/17/18 00:00 Intake Total 4250 ml Output Total 1100 ml Balance 3150 ml Intake Oral 1800 ml IV Total 2450 ml Output Urine Total 1100 ml Daily Weight Change Unsure Labs Microbiology 01/14/18 Blood Culture - Preliminary, Resulted No growth Focused Exam Respiratory: Lungs Clear, No Accessory Muscle Use, No Respiratory Distress Cardiovascular: Regular Rate, Rhythm Skin: ulcerations Clinical Quality Measures DVT/VTE Risk/Contraindication: Risk Factor Score Per Nursin RFS Level Per Nursing on Admit: 4+=Very High PALMER RICE MD Jan 17, 2018 13:15
[2018-01-17] MEDS: POLYETHYLENE GLYCOL 17 GM (MIRALAX) PACK PO SCH ×2 (13:52→21:10)
[2018-01-17 20:13] VITALS: BP 113/69
[2018-01-17] MEDS: IBUPROFEN TABLET 200 MG TAB PO PRN (21:21)
[2018-01-18] MEDS: VANCOMYCIN 1 GM/NS 250 ML IVPB IV SCH ×4 (05:26→16:58)
[2018-01-18 06:04] LABS: BASOPHILS % (AUTO) 1 % (0-10); EOSINOPHILS # (AUTO) 0.1 10^3/uL (0.0-0.3); EOSINOPHILS % (AUTO) 3 % (0-10); HEMATOCRIT 31 % (35-52); HEMOGLOBIN 9.9 G/DL (11.5-16.0); LYMPHOCYTES # (AUTO) 0.3 X 10^3 (1.0-4.0); LYMPHOCYTES % (AUTO) 8 % (12-44); MEAN CORPUSCULAR HEMOGLOBIN 32 PG (25-34); MEAN CORPUSCULAR HGB CONC 32 G/DL (32-36); MEAN CORPUSCULAR VOLUME 100 FL (80-99); MEAN PLATELET VOLUME 9.3 FL (7.4-10.4); MONOCYTES # (AUTO) 0.5 X 10^3 (0.0-1.0); MONOCYTES % (AUTO) 16 % (0-12); NEUTROPHILS # (AUTO) 2.3 X 10^3 (1.8-7.8); NEUTROPHILS % (AUTO) 72 % (42-75); PLATELET COUNT 200 10^3/uL (130-400); RED BLOOD COUNT 3.07 10^6/uL (4.35-5.85); RED CELL DISTRIBUTION WIDTH 17.8 % (10.0-14.5); WHITE BLOOD COUNT 3.2 10^3/uL (4.3-11.0)
[2018-01-18 06:28] LABS: ALANINE AMINOTRANSFERASE 42 U/L (0-55); ALBUMIN 2.2 GM/DL (3.2-4.5); ALKALINE PHOSPHATASE 278 U/L (40-136); BILIRUBIN,TOTAL 0.6 MG/DL (0.1-1.0); BUN/CREATININE RATIO 13; CALCIUM 7.9 MG/DL (8.5-10.1); CARBON DIOXIDE 22 MMOL/L (21-32); CHLORIDE 109 MMOL/L (98-107); CREATININE SERUM 0.68 MG/DL (0.60-1.30); GFR ESTIMATED > 60; GLUCOSE 77 MG/DL (70-105); POTASSIUM 4.2 MMOL/L (3.6-5.0); SODIUM 136 MMOL/L (135-145); TOTAL PROTEIN 6.3 GM/DL (6.4-8.2)
[2018-01-18] MEDS: PANTOPRAZOLE 40 MG (PROTONIX) TAB PO SCH (06:46)
[2018-01-18] MEDS: LACTOBACILLUS Acidoph/Bulgar (LACTINEX/FLORANEX) TAB PO SCH ×3 (06:47→16:58)
[2018-01-18] MEDS: RT-ALBUTEROL/IPRATROPIUM 3 ML (DUONEB) VIAL INH SCH ×2 (08:41→19:37)
[2018-01-18 09:32] VITALS: BP 105/54
[2018-01-18] MEDS: CEFEPIME INJECTION 1,000 MG in NS (IVPB) 50 ML IV SCH ×2 (09:34→20:53)
[2018-01-18] MEDS: oxyCODONE ER 15 MG (oxyCONTIN CR) TAB PO SCH ×2 (09:34→20:54)
--- NOTE | 2018-01-18 09:40 | Physician Progress Note ---
Progress Note Assessment/Plan Date Seen by Provider: Jan 18, 2018 Time Seen by Provider: 09:33 Events since last exam Fever again last night 101.2 Had a bowel movement since the MiraLAX. Still bleeding and drainage from the wound of the right breast Assessment/Plan IMP: 1. Fever, blood culture negative so far. UA unremarkable. Still spike last night 2. Wound infection/cellulitis of the right chest from breast cancer, still bleeding and green drainage. 3. Dehydration, resolved. 4. Stage IV breast cancer with extensive bone and liver and lung mets, s/p multiple lines of the chemotherapy and radiation 5. h/o recent wound infection of Stagh A 6. Pain control 7. h/o C.Diff colitis in the past 8. SOB on exertion, cough but not able to bring up sputum. Plan: 1. Continue IV Vancomycin and IV cefepime for 3 more days. NO levaquine due to liver mets and elevated LFTs. 2 Stop IVF 3. Probiotics to prevent C. Diff 4. Continue long acting pain meds OxyContin and short acting Oxycodone breakthrough 5. Respiratory consult for NEB treatment and O2. 6. MiraLax PRN for constipation 7. Protonix . 8. Consult Rad/Onc Saturday for the non-healing wound from the cancer and bleeding Vitals Last set of Vitals Signs Vital Signs Date Time Temp Pulse Resp B/P (MAP) Pulse Ox O2 Delivery O2 Flow Rate FiO2 01/18/18 09:32 97.5 77 20 105/54 (71) 95 Room Air 01/16/18 09:00 2.00 I&O I&O Intake and Output 01/18/18 00:00 Intake Total 4350 ml Output Total 1000 ml Balance 3350 ml Intake Oral 2550 ml IV Total 1800 ml Output Urine Total 1000 ml # Voids 6 Labs Laboratory Tests 01/18/18 05:49: White Blood Count 3.2L, Red Blood Count 3.07L, Hemoglobin 9.9L, Hematocrit 31L, Mean Corpuscular Volume 100H, Mean Corpuscular Hemoglobin 32, Mean Corpuscular Hemoglobin Concent 32, Red Cell Distribution Width 17.8H, Platelet Count 200, Mean Platelet Volume 9.3, Neutrophils (%) (Auto) 72, Lymphocytes (%) (Auto) 8L, Monocytes (%) (Auto) 16H, Eosinophils (%) (Auto) 3, Basophils (%) (Auto) 1, Neutrophils # (Auto) 2.3, Lymphocytes # (Auto) 0.3L, Monocytes # (Auto) 0.5, Eosinophils # (Auto) 0.1, Basophils # (Auto) 0.0, Sodium Level 136, Potassium Level 4.2, Chloride Level 109H, Carbon Dioxide Level 22, Anion Gap 5, Blood Urea Nitrogen 9, Creatinine 0.68, Estimat Glomerular Filtration Rate > 60, BUN/ Creatinine Ratio 13, Glucose Level 77, Calcium Level 7.9L, Corrected Calcium 9.3 , Total Bilirubin 0.6, Aspartate Amino Transf (AST/SGOT) 140H, Alanine Aminotransferase (ALT/SGPT) 42, Alkaline Phosphatase 278H, Total Protein 6.3L, Albumin 2.2L Microbiology 01/14/18 Blood Culture - Preliminary, Resulted No growth Clinical Quality Measures DVT/VTE Risk/Contraindication: Risk Factor Score Per Nursin RFS Level Per Nursing on Admit: 4+=Very High PALMER RICE MD Jan 18, 2018 09:39
[2018-01-18] MEDS: ONDANSETRON 4 MG/2 ML (SDV) Z0FRAN IV PRN (16:58)
[2018-01-18 20:26] VITALS: BP 124/58
[2018-01-18] MEDS: POLYETHYLENE GLYCOL 17 GM (MIRALAX) PACK PO SCH (20:53)
[2018-01-19] MEDS: VANCOMYCIN 1 GM/NS 250 ML IVPB IV SCH ×4 (04:23→17:24)
[2018-01-19] MEDS: ONDANSETRON 4 MG/2 ML (SDV) Z0FRAN IV PRN ×3 (05:31→22:42)
[2018-01-19] MEDS: LACTOBACILLUS Acidoph/Bulgar (LACTINEX/FLORANEX) TAB PO SCH ×3 (05:31→17:30)
[2018-01-19] MEDS: PANTOPRAZOLE 40 MG (PROTONIX) TAB PO SCH (05:31)
[2018-01-19] MEDS: RT-ALBUTEROL/IPRATROPIUM 3 ML (DUONEB) VIAL INH SCH ×2 (07:08→19:14)
[2018-01-19 08:39] VITALS: BP 104/55
[2018-01-19] MEDS: CEFEPIME INJECTION 1,000 MG in NS (IVPB) 50 ML IV SCH ×2 (09:24→20:23)
[2018-01-19] MEDS: oxyCODONE ER 15 MG (oxyCONTIN CR) TAB PO SCH ×2 (09:24→20:24)
--- NOTE | 2018-01-19 11:52 | Physician Progress Note ---
Progress Note Assessment/Plan Date Seen by Provider: Jan 19, 2018 Time Seen by Provider: 11:30 Events since last exam No fever, No new event Constipation resolved Feeling tired today Assessment/Plan IMP: 1. Fever, blood culture negative so far. UA unremarkable. 2. Wound infection/cellulitis of the right chest from breast cancer, still bleeding and green drainage. 3. Dehydration, resolved. 4. Stage IV breast cancer with extensive bone and liver and lung mets, s/p multiple lines of the chemotherapy and radiation 5. h/o recent wound infection of Stagh A 6. Pain control 7. h/o C.Diff colitis in the past 8. SOB on exertion, cough but not able to bring up sputum. Plan: 1. Continue IV Vancomycin and IV cefepime for 3 more days. NO levaquine due to liver mets and elevated LFTs. 2 Stop IVF 3. Probiotics to prevent C. Diff 4. Continue long acting pain meds OxyContin and short acting Oxycodone breakthrough 5. Respiratory consult for NEB treatment and O2. 6. MiraLax PRN for constipation 7. Protonix . 8. Consult Rad/Onc Saturday for the non-healing wound from the cancer and bleeding Vitals Last set of Vitals Signs Vital Signs Date Time Temp Pulse Resp B/P (MAP) Pulse Ox O2 Delivery O2 Flow Rate FiO2 01/19/18 08:39 98.3 84 20 104/55 (71) 94 Room Air 01/16/18 09:00 2.00 I&O I&O Intake and Output 01/18/18 23:59 Intake Total 1850 ml Output Total 800 ml Balance 1050 ml Intake Oral 1500 ml IV Total 350 ml Output Urine Total 800 ml # Voids 6 Labs Microbiology 01/14/18 Blood Culture - Preliminary, Resulted No growth Clinical Quality Measures DVT/VTE Risk/Contraindication: Risk Factor Score Per Nursin RFS Level Per Nursing on Admit: 4+=Very High PALMER RICE MD Jan 19, 2018 11:52
[2018-01-19 19:10] VITALS: BP 120/65
[2018-01-19] MEDS: POLYETHYLENE GLYCOL 17 GM (MIRALAX) PACK PO SCH (20:23)
[2018-01-20] MEDS: LACTOBACILLUS Acidoph/Bulgar (LACTINEX/FLORANEX) TAB PO SCH ×3 (06:10→16:12)
[2018-01-20] MEDS: VANCOMYCIN 1 GM/NS 250 ML IVPB IV SCH ×4 (06:10→16:13)
[2018-01-20] MEDS: PANTOPRAZOLE 40 MG (PROTONIX) TAB PO SCH (06:11)
[2018-01-20] MEDS: RT-ALBUTEROL/IPRATROPIUM 3 ML (DUONEB) VIAL INH SCH ×2 (07:37→18:41)
[2018-01-20] MEDS: CEFEPIME INJECTION 1,000 MG in NS (IVPB) 50 ML IV SCH ×2 (08:44→20:37)
[2018-01-20] MEDS: oxyCODONE ER 15 MG (oxyCONTIN CR) TAB PO SCH ×2 (08:44→20:38)
[2018-01-20 09:00] VITALS: BP 123/57
--- NOTE | 2018-01-20 09:49 | Physician Progress Note ---
Progress Note Assessment/Plan Date Seen by Provider: Jan 20, 2018 Time Seen by Provider: 14:15 Events since last exam No fever over last 24 hrs Rad/Onc Dr Yu consult tomorrow afternoon Leg swelling down Vomited once last night Laboratory Tests 01/20/18 10:50 Assessment/Plan IMP: 1. Fever, blood culture negative so far. UA unremarkable. 2. Wound infection/cellulitis of the right chest from breast cancer, still bleeding and green drainage. 3. Dehydration, resolved. 4. Stage IV breast cancer with extensive bone and liver and lung mets, s/p multiple lines of the chemotherapy and radiation 5. h/o recent wound infection of Stagh A 6. Pain control 7. h/o C.Diff colitis in the past 8. SOB on exertion, cough but not able to bring up sputum. Plan: 1. Continue IV Vancomycin and IV cefepime to tomorrow evening. If no more spike of fever, then either home Saturday evening or Sat. NO levaquine due to liver mets and elevated LFTs. 2 Rad/Onc Dr Yu consult for the bleeding of the cancer non-healing wound of the left breast. He will be here tomorrow afternoon. 3. Probiotics to prevent C. Diff 4. Continue long acting pain meds OxyContin and short acting Oxycodone breakthrough 5. Respiratory consult for NEB treatment and O2. 6. MiraLax PRN for constipation 7. Protonix . Vitals Last set of Vitals Signs Vital Signs Date Time Temp Pulse Resp B/P (MAP) Pulse Ox O2 Delivery O2 Flow Rate FiO2 01/20/18 09:00 98.1 72 16 123/57 (79) 96 Room Air 01/20/18 07:37 2.00 I&O I&O Intake and Output 01/20/18 00:00 Intake Total 2150 ml Output Total 1000 ml Balance 1150 ml Intake Oral 1550 ml IV Total 600 ml Output Urine Total 1000 ml # Voids 1 Labs Microbiology 01/14/18 Blood Culture - Preliminary, Resulted No growth Clinical Quality Measures DVT/VTE Risk/Contraindication: Risk Factor Score Per Nursin RFS Level Per Nursing on Admit: 4+=Very High PALMER RICE MD Jan 20, 2018 09:49
[2018-01-20 10:57] LABS: BASOPHILS % (AUTO) 1 % (0-10); EOSINOPHILS # (AUTO) 0.1 10^3/uL (0.0-0.3); EOSINOPHILS % (AUTO) 2 % (0-10); HEMATOCRIT 34 % (35-52); HEMOGLOBIN 11.1 G/DL (11.5-16.0); LYMPHOCYTES # (AUTO) 0.3 X 10^3 (1.0-4.0); LYMPHOCYTES % (AUTO) 10 % (12-44); MEAN CORPUSCULAR HEMOGLOBIN 33 PG (25-34); MEAN CORPUSCULAR HGB CONC 33 G/DL (32-36); MEAN CORPUSCULAR VOLUME 100 FL (80-99); MEAN PLATELET VOLUME 8.9 FL (7.4-10.4); MONOCYTES # (AUTO) 0.6 X 10^3 (0.0-1.0); MONOCYTES % (AUTO) 18 % (0-12); NEUTROPHILS # (AUTO) 2.4 X 10^3 (1.8-7.8); NEUTROPHILS % (AUTO) 69 % (42-75); PLATELET COUNT 240 10^3/uL (130-400); RED BLOOD COUNT 3.41 10^6/uL (4.35-5.85); RED CELL DISTRIBUTION WIDTH 18.1 % (10.0-14.5); WHITE BLOOD COUNT 3.4 10^3/uL (4.3-11.0)
[2018-01-20 11:15] LABS: ALANINE AMINOTRANSFERASE 49 U/L (0-55); ALBUMIN 2.5 GM/DL (3.2-4.5); ALKALINE PHOSPHATASE 334 U/L (40-136); BILIRUBIN,TOTAL 0.8 MG/DL (0.1-1.0); BUN/CREATININE RATIO 11; CALCIUM 8.3 MG/DL (8.5-10.1); CARBON DIOXIDE 24 MMOL/L (21-32); CHLORIDE 105 MMOL/L (98-107); CREATININE SERUM 0.81 MG/DL (0.60-1.30); GFR ESTIMATED > 60; GLUCOSE 78 MG/DL (70-105); POTASSIUM 4.4 MMOL/L (3.6-5.0); SODIUM 134 MMOL/L (135-145); TOTAL PROTEIN 7.2 GM/DL (6.4-8.2)
[2018-01-20] MEDS: ONDANSETRON 4 MG/2 ML (SDV) Z0FRAN IV PRN (16:20)
[2018-01-20 19:40] VITALS: BP 112/58
[2018-01-20] MEDS: POLYETHYLENE GLYCOL 17 GM (MIRALAX) PACK PO SCH (20:37)
[2018-01-21] MEDS: VANCOMYCIN 1 GM/NS 250 ML IVPB IV SCH ×4 (05:58→16:16)
[2018-01-21] MEDS: PANTOPRAZOLE 40 MG (PROTONIX) TAB PO SCH (05:58)
[2018-01-21] MEDS: LACTOBACILLUS Acidoph/Bulgar (LACTINEX/FLORANEX) TAB PO SCH ×3 (05:58→16:16)
[2018-01-21] MEDS: oxyCODONE ER 15 MG (oxyCONTIN CR) TAB PO SCH (08:46)
[2018-01-21] MEDS: CEFEPIME INJECTION 1,000 MG in NS (IVPB) 50 ML IV SCH (08:46)
[2018-01-21] MEDS: ONDANSETRON 4 MG/2 ML (SDV) Z0FRAN IV PRN (08:46)
[2018-01-21 08:59] VITALS: BP 118/56
[2018-01-21] MEDS: RT-ALBUTEROL/IPRATROPIUM 3 ML (DUONEB) VIAL INH SCH (09:22)
[2018-01-21] MEDS ORDERED: PANT40TA3 PO (14:59)
--- NOTE | 2018-01-21 16:41 | Discharge Summary ---
Diagnosis/Chief Complaint Date of Admission Jan 14, 2018 at 14:30 Date of Discharge 01-21-2018 Discharge Date: Jan 21, 2018 Discharge Time: 1900 Discharge Diagnosis 1. Fever, blood culture negative. UA unremarkable. 2. Wound infection/cellulitis of the right chest from breast cancer, non- healing. 3. Dehydration. 4. Stage IV breast cancer with extensive bone and liver and lung mets, s/p multiple lines of the chemotherapy and radiation. 5. h/o recent wound infection of Stagh A 6. Pain control 7. h/o C.Diff colitis in the past 8. SOB on exertion, cough but not able to bring up sputum due to lung mets and pleural effusion. Reason Hospital Visit Ms. Hope is a 62 year old female who was admitted on 01/14/18 for fever, dehydration, pain control and cellulitis from the non-healing open wound of the right breast with green drainage. Stage IV breast cancer with extensive metastasis to the liver, bone, and lungs. Discharge Summary Hospital Course Hospital Course Ms. Hope is a 62 year old female who was admitted on 01/14/18 for fever, dehydration, pain control and cellulitis from the non-healing open wound of the right breast with green drainage. Blood culture and UA were negative. She was initially treated with IV Vancomycin base on the wound culture result, but she still spiked fever 2 days of Vancomycin treatment. So Cefepine IV was added. Her fever was resolved and she has not had fever for 3 days. However her wound of the right breast still bleeding. We called rad/onc Dr Yu to see if the local radiation would be able to help control bleeding before the discharge but she declined the radiation treatment. We also started her on long acting Oxycontin for pain control along with Oxycodone for break through. Her pain has much improved. She had nausea and constipation and were treated with Protonix Zofran and MiraLax. The symptoms were also improved. Due to her failure of multiple lines of chemotherapy and extensive disease and rapidly progressing, I discussed with her about the hospice care. She was ready to have the conversation. She still wanted to go to [facility] in [place] for more chemo treatment. Discharge condition: stable. F/u with Dr Rice at cancer center in 2 weeks Labs Laboratory Tests 01/20/18 10:50: White Blood Count 3.4L, Red Blood Count 3.41L, Hemoglobin 11.1L, Hematocrit 34L , Mean Corpuscular Volume 100H, Red Cell Distribution Width 18.1H, Lymphocytes ( %) (Auto) 10L, Monocytes (%) (Auto) 18H, Lymphocytes # (Auto) 0.3L, Sodium Level 134L, Calcium Level 8.3L, Aspartate Amino Transf (AST/SGOT) 171H, Alkaline Phosphatase 334H, Albumin 2.5L Procedures None. Discharge Physical Examination Allergies: Coded Allergies: mannitol (Unverified Adverse Reaction, Unknown, 04/11/17) water for injection,sterile (Unverified Adverse Reaction, Unknown, 04/11/17 ) zoledronic acid (Unverified Adverse Reaction, Unknown, 04/11/17) Vitals & I&Os Vital Signs Date Time Temp Pulse Resp B/P (MAP) Pulse Ox O2 Delivery O2 Flow Rate FiO2 01/21/18 09:22 92 Room Air 01/21/18 09:20 99.8 01/21/18 08:59 76 20 118/56 (76) 01/20/18 07:37 2.00 Discharge Home Medications Reviewed and agree with Discharge Medication list on patient's Discharge Instruction sheet Instructions to Patient/Family Please see electronic discharge instructions given to patient. Clinical Quality Measures DVT/VTE Risk/Contraindication: Risk Factor Score Per Nursin RFS Level Per Nursing on Admit: 4+=Very High PALMER RICE MD Jan 21, 2018 16:41
[2018-01-21 18:10] VITALS: BP 118/56
--- NOTE | 2018-01-22 12:44 | Physician Query Clarification ---
PQ-Further Specificity Admission/Discharge Admission Date: Jan 14, 2018 at 14:30 Discharge Date: Jan 21, 2018 at 18:10 Answer: Cancer of the right breast, open wound lesions of the underlay cancer complicated with superimposed infection/cellulitis. Patient was treated with antibiotics for the infection and then radiation consult for possible radiation treatment for the underlay breast cancer but patient refused the radiation therapy. The medical record reflects the following clinical scenario: History/Risk Factors: Cancer rt breast Clinical Findings: cancer rt breast Treatment: mastectomy, chemo, radiation Question: Can you further specify non-healing open wound of the right breast per the clinical indicators above? Please document below. 1. 2. Other, with explanation of the clinical findings. 3. Clinically undetermined, no explanation for the clinical findings. PHYSICIAN RESPONSE Can you specify per above: 2 Answer: Cancer of the right breast, open wound lesions of the underlay cancer complicated with superimposed infection/cellulitis. Patient was treated with antibiotics for the infection and then radiation consult for possible radiation treatment for the underlay breast cancer but patient refused the radiation therapy. In responding to this query, please exercise your independent professional judgment. The purpose of this communication is to more accurately reflect the complexity of your patients condition. The fact that a question is asked does not imply that any particular answer is desired or expected. Thank you for your timely response to this clarification. Requestors name: Kate Roblero THIS PHYSICIAN QUERY FORM IS A PERMANENT PART OF THE MEDICAL RECORD LAMBERTO ROBLERO Jan 22, 2018 12:44 PALMER RICE MD Feb 05, 2018 14:31
== END 2018-01-21 18:10 | disposition home or self-care (01) | DRG 598 ==
LOC: 4TH 14:30
PROVIDERS: ADMIT Internal Medicine Hematology & Oncology; ATTEND Internal Medicine Hematology & Oncology
DX: C50.911 Malignant neoplasm of unspecified site of right female breast (principal); L03.313 Cellulitis of chest wall; E86.0 Dehydration; C79.51 Secondary malignant neoplasm of bone; C78.7 Secondary malignant neoplasm of liver and intrahepatic bile duct; C78.01 Secondary malignant neoplasm of right lung; C78.02 Secondary malignant neoplasm of left lung; R06.02 Shortness of breath; R05 Cough; I89.0 Lymphedema, not elsewhere classified; K59.00 Constipation, unspecified; R11.0 Nausea
CPT/HCPCS: 36415; 80048; 80053; 80202; 81000; 85025; 87040; 94640; 94760; 94761

== ENCOUNTER 2018-02-04 12:53 | Outpatient (RCR) | payer BC ==
[2018-01-14 13:32] LABS: BASOPHILS % (AUTO) 0 % (0-10); EOSINOPHILS # (AUTO) 0.1 10^3/uL (0.0-0.3); EOSINOPHILS % (AUTO) 1 % (0-10); HEMATOCRIT 37 % (35-52); LYMPHOCYTES # (AUTO) 0.3 X 10^3 (1.0-4.0); LYMPHOCYTES % (AUTO) 6 % (12-44); MEAN CORPUSCULAR HEMOGLOBIN 33 PG (25-34); MEAN CORPUSCULAR HGB CONC 33 G/DL (32-36); MEAN CORPUSCULAR VOLUME 100 FL (80-99); MEAN PLATELET VOLUME 8.9 FL (7.4-10.4); MONOCYTES # (AUTO) 0.7 X 10^3 (0.0-1.0); MONOCYTES % (AUTO) 16 % (0-12); NEUTROPHILS # (AUTO) 3.5 X 10^3 (1.8-7.8); NEUTROPHILS % (AUTO) 77 % (42-75); PLATELET COUNT 245 10^3/uL (130-400); RED BLOOD COUNT 3.69 10^6/uL (4.35-5.85); RED CELL DISTRIBUTION WIDTH 17.9 % (10.0-14.5); WHITE BLOOD COUNT 4.5 10^3/uL (4.3-11.0)
[2018-01-14 13:53] LABS: ALANINE AMINOTRANSFERASE 65 U/L (0-55); ALBUMIN 3.1 GM/DL (3.2-4.5); ALKALINE PHOSPHATASE 256 U/L (40-136); BILIRUBIN,TOTAL 0.9 MG/DL (0.1-1.0); BUN/CREATININE RATIO 17; CARBON DIOXIDE 25 MMOL/L (21-32); CHLORIDE 103 MMOL/L (98-107); CREATININE SERUM 0.82 MG/DL (0.60-1.30); GFR ESTIMATED > 60; GLUCOSE 97 MG/DL (70-105); POTASSIUM 4.7 MMOL/L (3.6-5.0); SODIUM 134 MMOL/L (135-145); TOTAL PROTEIN 8.2 GM/DL (6.4-8.2)
[~2018-02-04 12:53] MED LIST changes: +METR-197 PO; -METR500T21 PO; +OXYC-529 PO
== END 2018-04-14 | disposition home or self-care (01) ==
LOC: ONC 12:53
PROVIDERS: ATTEND Internal Medicine Hematology & Oncology
DX: C50.312 Malignant neoplasm of lower-inner quadrant of left female breast (principal); C79.51 Secondary malignant neoplasm of bone; Z17.0 Estrogen receptor positive status [ER+]; Z78.0 Asymptomatic menopausal state; Z79.899 Other long term (current) drug therapy
CPT/HCPCS: 80053; 85025; 86300; 99213